=== PATIENT | female | born 1945 | race American Indian/Alaskan Native ===

== ENCOUNTER 2016-12-17 11:37 | Emergency (ER) | payer MEDICAID, SELFPAY ==
--- NOTE | 2016-12-17 11:43 | EDM.PDOC ---
ED HPI GENERAL MEDICAL PROBLEM - General Chief Complaint: Abdominal Pain Stated Complaint: said pain [id number] Time Seen by Provider: 12/17/16 12:17 Source of Information: Reports: Patient, RN, RN Notes Reviewed History Limitations: Reports: No Limitations - History of Present Illness INITIAL COMMENTS - FREE TEXT/NARRATIVE: Patient has had approximately one and half weeks of pain that radiates from the mid back/left flank area around the lower left abdomen to the groin and periumbilical area. She has some sensation of numbness and tingling when she touches the skin of the left lower abdomen. She has nausea. No vomiting. Normal bowel function. Denies fevers and chills. Denies any urinary symptoms. Was seen at [facility] where she had blood tests, urine tests which she states where inconclusive, however, her doctor on antibiotics empirically for possible diverticulitis. Pain has increased. She has had no other symptoms develop. Severity: Moderate Improves with: Reports: None Worsens with: Reports: None Associated Symptoms: Reports: No Other Symptoms Abdomen Pain Score (Numeric/FACES): 8 - Related Data Allergies Allergy/AdvReac Type Severity Reaction Status Date / Time bacitracin Allergy Swelling Verified 12/17/16 11:54 [From Neosporin ([id number])] bacitracin zinc Allergy Swelling Verified 12/17/16 11:54 [From Neosporin ([id number])] neomycin sulfate Allergy Swelling Verified 12/17/16 11:54 [From Neosporin ([id number])] Opioids - Morphine Analogues Allergy Rash Verified 12/17/16 11:54 polymyxin B Allergy Swelling Verified 12/17/16 11:54 [From Neosporin ([id number])] kiwi Allergy Swollen Uncoded 12/17/16 11:54 Eyes Home Meds: Home Meds Diltiazem [Tiazac] 120 mg PO DAILY 09/27/15 [History] Insulin Detemir [Levemir Flextouch] 70 units SQ DAILY 09/27/15 [History] Nitroglycerin [Nitro-Time] 6.5 mg PO BID 09/27/15 [History] Simvastatin [Zocor] 20 mg PO BEDTIME 09/27/15 [History] glyBURIDE [Micronase] 10 mg PO WITHBREAKFAST 03/13/16 [History] Lisinopril [Lisinopril] 40 mg PO DAILY 11/26/15 [History] Amoxicillin/Clavulanate K [Augmentin 875 MG/125 MG] 1 tab PO BID 12/17/16 [ History] Diltiazem HCl [Diltiazem 24Hr ER] 120 mg PO DAILY 12/17/16 [History] Fluconazole [Diflucan] 150 mg PO ASDIRECTED PRN 12/17/16 [History] Naproxen [IMW: Naproxen] 500 mg PO ASDIRECTED PRN 12/17/16 [History] Nitroglycerin [IJP: Nitroglycerin] 0.4 mg SL ASDIRECTED 12/17/16 [History] Omeprazole [Omeprazole] 20 mg PO ASDIRECTED PRN 12/17/16 [History] metFORMIN [Glucophage] 1,000 mg PO BID 12/17/16 [History] Past Medical History HEENT History: Reports: Impaired Vision Cardiovascular History: Reports: High Cholesterol, Hypertension Respiratory History: Reports: Asthma, Bronchitis, Recurrent Genitourinary History: 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 (See Below) Other Genitourinary History: diabetis 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: , Other (See Below) Other OB/BYN History: hysterectomy Endocrine/Metabolic History: Reports: Diabetes, Type II Oncologic (Cancer) History: Reports: Breast - Past Surgical History Cardiovascular Surgical History: 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 (See Below) Female Surgical History: Reports: Breast Biopsy, Hysterectomy, Mastectomy, Other (See Below) Oncologic Surgical History: Reports: Biopsy of Breast, Other (See Below) Social & Family History - Family History Family Medical History: Noncontributory - Tobacco Use Smoking Status *Q: Never Smoker Second Hand Smoke Exposure: No - Recreational Drug Use Recreational Drug Use: No ED ROS GENERAL - Review of Systems Review Of Systems: ROS reveals no pertinent complaints other than HPI. ED EXAM, GI/ABD - Physical Exam Exam: See Below Exam Limited By: No Limitations General Appearance: Alert, Obese Eyes: Bilateral: Normal Appearance Nose: Normal Inspection Throat/Mouth: Normal Inspection Head: Atraumatic, Normocephalic Neck: Normal Inspection, Supple, Non-Tender, Full Range of Motion Respiratory/Chest: No Respiratory Distress, Lungs Clear, Normal Breath Sounds, No Accessory Muscle Use, Chest Non-Tender Cardiovascular: Normal Peripheral Pulses, Regular Rate, Rhythm, No Edema, No Gallop, No JVD, No Murmur, No Rub GI/Abdominal: Normal Bowel Sounds, Soft, No Distention, Other (morbidly obese abdomen with left lower quadrant tenderness extending around to the left flank. ). No: Guarding, Rebound, Rigidity Back Exam: CVA Tenderness (L), Decreased Range of Motion, Paraspinal Tenderness (at left thoracolumbar region. ). No: CVA Tenderness (R), Muscle Spasm, Vertebral Tenderness Extremities: Normal Inspection, Normal Range of Motion, Non-Tender, Normal Capillary Refill, No Pedal Edema Neurological: Alert, Oriented, CN II-XII Intact, Normal Cognition, Normal Gait, Normal Reflexes, No Motor/Sensory Deficits Psychiatric: Normal Affect, Normal Mood Skin Exam: Warm, Dry, Intact, Normal Color, No Rash Lymphatic: No Adenopathy Course - Vital Signs Last Recorded V/S: Last Vital Signs Temp 36.2 C 12/17/16 11:56 Pulse 60 12/17/16 13:10 Resp 18 12/17/16 11:56 BP 169/67 H 12/17/16 11:56 Pulse Ox 98 12/17/16 13:10 - Orders/Labs/Meds Orders: Active Orders 24 hr Category Date Time Status Peripheral IV Care [RC] . DIRECTED Care 12/17/16 12:27 Active RT Aerosol Therapy [RC] ASDIRECTED Care 12/17/16 13:10 Active Sodium Chloride 0.9% [Saline Flush] Med 12/17/16 12:25 Active 10 ml FLUSH ASDIRECTED PRN Peripheral IV Insertion Adult [OM.PC] Stat Oth 12/17/16 12:26 Ordered Medication Orders Sodium Chloride (Saline Flush) 10 ml FLUSH ASDIRECTED PRN PRN Reason: Keep Vein Open Last Admin: 12/17/16 13:53 Dose: 10 ml Admin: 12/17/16 12:45 Dose: 10 ml Labs: Laboratory Tests 12/17/16 12/17/16 12/17/16 Range/Units 12:35 12:35 13:40 WBC 13.1 H (5.0-10.0) 10^3/uL RBC 4.34 (4.2-5.4) 10^6/uL Hgb 12.7 (12.0-16.0) g/dL Hct 39.4 (37.0-47.0) % MCV 90.8 (80-100) fL MCH 29.3 (27.0-34.0) pg MCHC 32.2 L (33.0-35.0) g/dL Plt Count 216 (150-450) 10^3/uL Neut % (Auto) 81.0 H (42.2-75.2) % Lymph % (Auto) 11.1 L (20.5-50.1) % [place] % (Auto) 5.4 (2-8) % Eos % (Auto) 2.3 (1.0-3.0) % Baso % (Auto) 0.2 (0.0-1.0) % Sodium 136 (135-145) mmol/L Potassium 6.4 H (3.6-5.0) mmol/L Chloride 108 (101-111) mmol/L Carbon Dioxide 22.0 (21.0-31.0) mmol/L Anion Gap 12.4 BUN 22 H (7-18) mg/dL Creatinine 1.3 (0.6-1.3) mg/dL Est Cr Clr Drug Dosing 29.34 mL/min Estimated GFR (MDRD) 41 BUN/Creatinine Ratio 16.92 Glucose 223 H (74-105) mg/dL POC Glucose 176 H (70-105) mg/dl Calcium 8.2 L (8.4-10.2) mg/dl Total Bilirubin 0.5 (0.2-1.0) mg/dL AST 11 (10-42) IU/L ALT 11 (10-60) IU/L Alkaline Phosphatase 84 (42-121) IU/L Total Protein 6.1 L (6.7-8.2) g/dl Albumin 2.9 L (3.2-5.5) g/dl Globulin 3.2 Albumin/Globulin Ratio 0.91 Amylase 8 L (28-100) U/L Lipase 11 L (22-51) U/L Urine Color (YELLOW) Urine Appearance (CLEAR) Urine pH (5.0-9.0) Ur Specific [place] (1.005-1.030) Urine Protein (NEGATIVE) Urine Glucose (UA) (NEGATIVE) Urine Ketones (NEGATIVE) Urine Occult Blood (NEGATIVE) Urine Nitrite (NEGATIVE) Urine Bilirubin (NEGATIVE) Urine Urobilinogen (0.2-1.0) mg/dL Ur Leukocyte Esterase (NEGATIVE) Urine RBC /HPF Urine WBC (0-5/HPF) /HPF Ur Epithelial Cells /HPF Urine Bacteria (0-FEW/HPF) /HPF Urine Yeast (0/HPF) /HPF 12/17/16 12/17/16 12/17/16 Range/Units 14:13 14:30 15:06 WBC (5.0-10.0) 10^3/uL RBC (4.2-5.4) 10^6/uL Hgb (12.0-16.0) g/dL Hct (37.0-47.0) % MCV (80-100) fL MCH (27.0-34.0) pg MCHC (33.0-35.0) g/dL Plt Count (150-450) 10^3/uL Neut % (Auto) (42.2-75.2) % Lymph % (Auto) (20.5-50.1) % [place] % (Auto) (2-8) % Eos % (Auto) (1.0-3.0) % Baso % (Auto) (0.0-1.0) % Sodium 140 (135-145) mmol/L Potassium 4.9 (3.6-5.0) mmol/L Chloride 112 H (101-111) mmol/L Carbon Dioxide 20.0 L (21.0-31.0) mmol/L Anion Gap 12.9 BUN 20 H (7-18) mg/dL Creatinine 1.4 H (0.6-1.3) mg/dL Est Cr Clr Drug Dosing 27.24 mL/min Estimated GFR (MDRD) 37 BUN/Creatinine Ratio Glucose 249 H (74-105) mg/dL POC Glucose 250 H (70-105) mg/dl Calcium 9.3 (8.4-10.2) mg/dl Total Bilirubin (0.2-1.0) mg/dL AST (10-42) IU/L ALT (10-60) IU/L Alkaline Phosphatase (42-121) IU/L Total Protein (6.7-8.2) g/dl Albumin (3.2-5.5) g/dl Globulin Albumin/Globulin Ratio Amylase (28-100) U/L Lipase (22-51) U/L Urine Color Yellow (YELLOW) Urine Appearance Cloudy (CLEAR) Urine pH 5.5 (5.0-9.0) Ur Specific [place] 1.015 (1.005-1.030) Urine Protein >=300 H (NEGATIVE) Urine Glucose (UA) 100 H (NEGATIVE) Urine Ketones Negative (NEGATIVE) Urine Occult Blood Small H (NEGATIVE) Urine Nitrite Negative (NEGATIVE) Urine Bilirubin Negative (NEGATIVE) Urine Urobilinogen 0.2 (0.2-1.0) mg/dL Ur Leukocyte Esterase Moderate H (NEGATIVE) Urine RBC 5-10 H /HPF Urine WBC >100 H (0-5/HPF) /HPF Ur Epithelial Cells Rare /HPF Urine Bacteria Few (0-FEW/HPF) /HPF Urine Yeast Many H (0/HPF) /HPF Meds: Medications Generic Name Dose Route Start Last Admin Trade Name Freq PRN Reason Stop Dose Admin Sodium Chloride 10 ml 12/17/16 12:25 12/17/16 13:53 Saline Flush FLUSH 10 ml ASDIRECTED PRN Administration Keep Vein Open Discontinued Medications Generic Name Dose Route Start Last Admin Trade Name Freq PRN Reason Stop Dose Admin Albuterol 7.5 mg 12/17/16 13:09 12/17/16 13:38 Proventil Neb Soln NEB 12/17/16 13:10 7.5 mg ONETIME ONE Administration Calcium Chloride 1 gm 12/17/16 13:10 12/17/16 13:48 Calcium Chloride 10% IVPUSH 12/17/16 13:11 1 gm ONETIME ONE Administration Dextrose/Water 50 ml 12/17/16 13:11 12/17/16 13:42 Dextrose 50% In Water IVPUSH 12/17/16 13:12 50 ml ONETIME ONE Administration Fluconazole 200 mg 12/17/16 15:45 Diflucan PO 12/17/16 15:46 ONETIME ONE Sodium Chloride 1,000 mls @ 999 mls/hr 12/17/16 12:29 12/17/16 12:46 Normal Saline IV 12/17/16 13:29 999 mls/hr .BOLUS ONE Administration Insulin Human Regular 10 unit 12/17/16 13:11 12/17/16 13:36 Novolin R IVPUSH 12/17/16 13:12 10 units ONETIME ONE Administration Protocol Ondansetron HCl 4 mg 12/17/16 12:29 12/17/16 12:47 Zofran IV 12/17/16 12:30 4 mg ONETIME ONE Administration Sodium Polystyrene Sulfonate 45 gm 12/17/16 13:09 12/17/16 13:46 Kayexalate PO 12/17/16 13:10 30 gm NOW ONE Administration Sodium Polystyrene Sulfonate Confirm 12/17/16 13:44 12/17/16 13:49 Kayexalate Administered 12/17/16 13:45 Not Given Dose 15 gm .ROUTE .STK-MED ONE Sodium Polystyrene Sulfonate Confirm 12/17/16 13:46 12/17/16 13:52 Kayexalate Administered 12/17/16 13:47 Not Given Dose 15 gm .ROUTE .STK-MED ONE - Radiology Interpretation Free Text/Narrative:: CT abdomen and pelvis: per rad report reveals abnormal left renal findings suggesting recently passed calculus, calculus too small to characterize or possible pyelonephritis. Possible mild periumbilical cellulitis in the subcutaneous tissues. Intra-extrahepatic biliary ductal ectasia, uncertain chronicity or etiology. Pelvic floor laxity. Departure - Departure Time of Disposition: 16:22 Disposition: Home, Self-Care 01 Condition: fair Clinical Impression: Hyperkalemia, Kidney stone, Yeast cystitis Degenerative disc disease Qualifiers: Spinal region: thoracolumbar Qualified Code(s): M51.35 - Other intervertebral disc degeneration, thoracolumbar region Urinary tract infection Qualifiers: Urinary tract infection type: acute cystitis Hematuria presence: without hematuria Qualified Code(s): N30.00 - Acute cystitis without hematuria - Discharge Information Instructions: Hyperkalemia, [id number], Potassium Content of Foods, Kidney Stones, [id number], Vaginal Yeast Infection, Adult Forms: ED Department Discharge Additional Instructions: RX: Diflucan 100mg. RX: Zofran 4mg. Follow up in clinic in 2 to 3 days for recheck of potassium level and her abdominal symptoms. Return to ER if worse at any time. - My Orders Last 24 Hours: My Active Orders 12/17/16 12:25 Sodium Chloride 0.9% [Saline Flush] 10 ml FLUSH ASDIRECTED PRN 12/17/16 12:26 Peripheral IV Insertion Adult [OM.PC] Stat 12/17/16 12:27 Peripheral IV Care [RC] . DIRECTED 12/17/16 13:10 RT Aerosol Therapy [RC] ASDIRECTED - Assessment/Plan Last 24 Hours: My Active Orders 12/17/16 12:25 Sodium Chloride 0.9% [Saline Flush] 10 ml FLUSH ASDIRECTED PRN 12/17/16 12:26 Peripheral IV Insertion Adult [OM.PC] Stat 12/17/16 12:27 Peripheral IV Care [RC] . DIRECTED 12/17/16 13:10 RT Aerosol Therapy [RC] ASDIRECTED
[2016-12-17 11:57] VITALS: BP 169/67
[2016-12-17] MEDS ORDERED: Sodium Chloride 0.9% 1,000 ML IV ONE (12:29)
[2016-12-17] MEDS ORDERED: Ondansetron 4 MG/2 ML SDV IV ONE (12:29)
[2016-12-17] MEDS: Sodium Chloride 0.9% 10 ML Syringe FLUSH PRN ×2 (12:45→13:53)
[2016-12-17] MEDS ORDERED: Albuterol 0.083% 2.5 MG/3 ML Neb Soln NEB ONE (13:09)
[2016-12-17] MEDS ORDERED: Calcium Chloride 10% 1 GM/10 ML Syringe IVPUSH ONE (13:10)
[2016-12-17] MEDS ORDERED: Insulin Regular, Human 100 Units/ML 10 ML Vial IVPUSH ONE (13:11)
[2016-12-17] MEDS ORDERED: 50% Dextrose in Water 50 ML Syringe IVPUSH ONE (13:11)
[2016-12-17] MEDS: Sodium Polystyrene Sulfonate 15 GM/60 ML Susp 60 ML Bot PO ONE ×2 (13:40→13:46)
[2016-12-17] MEDS ORDERED: Sodium Polystyrene Sulfonate 15 GM/60 ML Susp 60 ML Bot ONE ×2 (13:44→13:46)
[2016-12-17] MEDS ORDERED: Fluconazole 100 MG Tab PO ONE (15:45)
== END 2016-12-17 16:52 | disposition home or self-care (01) ==
LOC: DL.ED 11:37
DX: N20.0 Calculus of kidney (principal); B37.41 Candidal cystitis and urethritis; E87.5 Hyperkalemia; E78.00 Pure hypercholesterolemia, unspecified; I10 Essential (primary) hypertension; J45.909 Unspecified asthma, uncomplicated; E11.9 Type 2 diabetes mellitus without complications; H54.7 Unspecified visual loss; Z88.8 Allergy status to other drugs, medicaments and biological substances; Z79.4 Long term (current) use of insulin; Z79.899 Other long term (current) drug therapy; Z88.5 Allergy status to narcotic agent; Z90.710 Acquired absence of both cervix and uterus; M51.35 Other intervertebral disc degeneration, thoracolumbar region; Z79.84 Long term (current) use of oral hypoglycemic drugs; Z79.2 Long term (current) use of antibiotics
CPT/HCPCS: 36415; 74176; 80048; 80053; 81001; 82150; 82962; 83690; 85025; 94640; 96361; 96374; 96375; 99285; A9270; J1815; J2405; J7030; J7050; J7620; 99284; J7060

== ENCOUNTER 2017-01-08 19:25 | Emergency (ER) | payer SELFPAY | END 2017-01-08 19:51 | disposition left against medical advice (07) | LOC: DL.ED 19:25 | DX: Z53.21 Procedure and treatment not carried out due to patient leaving prior to being seen by health care provider (principal) ==

== ENCOUNTER 2017-09-05 06:19 | Day surgery (SDC) | payer MEDICAID, OTHER ==
[~2017-09-05 06:19] MED LIST: Dextrose 5%-0.45% NaCl 1,000 ML IV SCH; Midazolam 1 MG/ML 2 ML SDV ONE; Sodium Chloride 0.9% 10 ML Syringe FLUSH PRN; fentaNYL 100 MCG/2 ML SDV ONE
[2017-09-05] MEDS ORDERED: fentaNYL 100 MCG/2 ML SDV IV ONE ×3 (06:20→07:00)
[2017-09-05] MEDS ORDERED: Midazolam 1 MG/ML 2 ML SDV IV ONE ×5 (06:20→07:12)
[2017-09-05] MEDS ORDERED: Dextrose 5%-0.45% NaCl 1,000 ML IV SCH (07:00)
[2017-09-05 09:13] VITALS: BP 173/65
--- NOTE | 2017-09-05 11:15 | OR ---
DATE: 09/05/2017 PROCEDURE: Total colonoscopy. INSTRUMENT USED: PCF-H180AL Olympus video colonoscope. PREMEDICATIONS: Fentanyl 100 mcg intravenous, Versed 3 mg intravenous. Nasal O2 cannula. The procedure was done under pulse oximetry, BP recording, and cardiac tech. INDICATION: Screening colonoscopic examination is done for detection of any polypoid lesions and removal, endoscopic hemostasis therapy if needed. DESCRIPTION OF PROCEDURE: Initial rectal exam showed external hemorrhoidal tags and the anal sphincter was found to be lax. Rigid anoscopy showed small internal hemorrhoids without bleeding from them. The colonoscope was passed with ease up to the ileocecal area, photographs were taken of the normal- appearing cecum, identified by double-bulged ileocecal folds. No bleeding was noted from any of the visualized areas at the commencement of the examination. There was large amount of liquid fecal material that had to be aspirated clear. No stricture. No vascular ectasia. No large isolated ulcerations seen. No evidence of diffuse inflammatory bowel disease in the form of friability, contact bleeding, or ulcerations. No polyp or tumor mass identified. Probing the proximal sides of folds and flexures, using adequate distention and clearing up the stool material, withdrawal of the scope was made, cecum to rectum time over 6 minutes. No bleeding was noted from any of the visualized areas at the completion of examination. IMPRESSION: External and internal hemorrhoids. The patient tolerated the procedure well. [facility] /[id number]
--- NOTE | 2017-09-05 14:39 | LETTER ---
09/05/2017 Jumana Montes MD [facility] [address] [place] [address] RE: ELDA LOVE : [address] Montes: Ms. Elda Love had colonoscopic examination done this morning and she tolerated the procedure well. I herewith send a copy of the endoscopy note and photographs for your review. Thank you. Sincerely, [facility] /[id number]
== END 2017-09-05 09:05 | disposition home or self-care (01) ==
LOC: DL.ENDO 06:19
PROVIDERS: ATTEND Internal Medicine Gastroenterology
DX: Z12.11 Encounter for screening for malignant neoplasm of colon (principal); K64.8 Other hemorrhoids; K64.4 Residual hemorrhoidal skin tags; E66.9 Obesity, unspecified; E11.9 Type 2 diabetes mellitus without complications; I10 Essential (primary) hypertension; Z88.1 Allergy status to other antibiotic agents; Z88.8 Allergy status to other drugs, medicaments and biological substances; Z91.018 Allergy to other foods; Z90.49 Acquired absence of other specified parts of digestive tract; Z90.710 Acquired absence of both cervix and uterus
CPT/HCPCS: 45378; J2250; J3010; J7042

== ENCOUNTER 2017-11-14 08:07 | Day surgery (SDC) | payer MEDICAID, MEDICARE, OTHER ==
[~2017-11-14 08:07] MED LIST changes: +Cataract Ophth Solution EYERT ONE; -Dextrose 5%-0.45% NaCl 1,000 ML IV SCH; +Lidocaine 4% 5 ML Amp EYERT ONE; -Midazolam 1 MG/ML 2 ML SDV ONE; +Moxifloxacin 0.5% Ophth Soln 3 ML Bottle EYERT ONE; -fentaNYL 100 MCG/2 ML SDV ONE
[2017-11-14] MEDS ORDERED: Sodium Chloride 0.9% 10 ML Syringe IV ONE (08:08)
[2017-11-14] MEDS ORDERED: Midazolam 1 MG/ML 2 ML SDV IV ONE (08:08)
[2017-11-14] MEDS ORDERED: EPINEPHrine 1 MG/ML SDV ONE (10:15)
[2017-11-14] MEDS ORDERED: Lidocaine 1% 30 ML SDV ONE (10:16)
[2017-11-14] MEDS ORDERED: Balanced Salt Solution Ophth Irrig 500 ML Bottle IOCULAR ONE (10:16)
[2017-11-14] MEDS ORDERED: Lidocaine 4% 5 ML Amp EYERT ONE (10:16)
[2017-11-14] MEDS ORDERED: Povidone-Iodine 5% Sterile Ophth Soln 30 ML Bottle EYERT ONE (10:17)
[2017-11-14] MEDS ORDERED: Moxifloxacin 0.5% Ophth Soln 3 ML Bottle EYERT ONE (10:17)
[2017-11-14] MEDS ORDERED: prednisoLONE Acetate 1% Ophth Susp 5 ML Bottle EYERT ONE (10:17)
--- NOTE | 2017-11-14 10:44 | PCM.OPNOTE ---
- General Post-Op/Procedure Note Date of Surgery/Procedure: 11/14/17 Operative Procedure(s): Cataract extraction with intraocular lens implant, right eye Findings: As above Pre Op Diagnosis: Combined forms of age-related cataract, right eye Post-Op Diagnosis: Same Anesthesia Technique: MAC Primary Surgeon: Trevor Armstrong Anesthesia Provider: Alfred Pathology: None EBL in mLs: 0 Complications: None Condition: Good Free Text/Narrative:: PROCEDURE: After the risks and benefits of the procedure were explained informed consent was obtained from the patient and the patient was taken to the operating room. The patient was given topical Lidocaine 4% drops in the right eye. The patient was then prepped and draped in the sterile [facility] fashion. A wire lid speculum was placed in the right eye. A clear cornea temporal approach was used. A [address] blade was used to make a paracentesis site around 11:00. Preservative-free Lidocaine 1% was injected intracamerally. Viscoelastic was placed in the anterior chamber. A 2.5 mm keratome blade was used to make a clear corneal incision around 9:00. A cystotome needle and Utrata forceps were used to perform continuous curvilinear capsulorhexis. Balanced Salt Solution was used to perform hydrodissection and hydrodelineation. The lens nucleus was removed using the divide and conquer phacoemulsification technique. Cumulative dissipated energy was 7.03. Remaining cortex was removed using irrigation- aspiration. Viscoelastic was placed in the capsular bag. PCBOO 21.0 diopter lens was then placed in the capsular bag. Remaining viscoelastic was removed using irrigation-aspiration. The lens was well centered in the capsular bag. The paracentesis and corneal incision were found to be water-tight. The patient was given topical Prednisolone and Vigamox drops. The speculum was removed and a shield was placed over the right eye. The patient was taken to recovery in stable condition. I certify that I was present for and performed the entire operative procedure. Trevor Armstrong M.D.
[2017-11-14 13:15] VITALS: BP 184/63
== END 2017-11-14 11:36 | disposition home or self-care (01) ==
LOC: DL.SDS 08:07
PROVIDERS: ATTEND Ophthalmology
DX: H25.811 Combined forms of age-related cataract, right eye (principal); E11.36 Type 2 diabetes mellitus with diabetic cataract; E11.42 Type 2 diabetes mellitus with diabetic polyneuropathy; E11.22 Type 2 diabetes mellitus with diabetic chronic kidney disease; I12.9 Hypertensive chronic kidney disease with stage 1 through stage 4 chronic kidney disease, or unspecified chronic kidney disease; N18.3 Chronic kidney disease, stage 3 (moderate); E78.5 Hyperlipidemia, unspecified; G89.29 Other chronic pain; M54.5 Low back pain; Z79.4 Long term (current) use of insulin; Z79.899 Other long term (current) drug therapy; Z88.1 Allergy status to other antibiotic agents; Z88.8 Allergy status to other drugs, medicaments and biological substances; Z91.018 Allergy to other foods
CPT/HCPCS: 66984; 82962; A9270; J0171; J2250; J7050; V2632; 00142

== ENCOUNTER 2017-12-19 08:41 | Day surgery (SDC) | payer MEDICAID, MEDICARE ==
[2017-12-19] MEDS ORDERED: Midazolam 1 MG/ML 2 ML SDV IV ONE (08:42)
[2017-12-19] MEDS ORDERED: Sodium Chloride 0.9% 10 ML Syringe IV ONE (08:42)
[2017-12-19] MEDS ORDERED: Lidocaine 4% 5 ML Amp EYELF ONE ×2 (09:00→10:53)
[2017-12-19] MEDS ORDERED: Sodium Chloride 0.9% 10 ML Syringe FLUSH PRN (09:00)
[2017-12-19] MEDS ORDERED: Moxifloxacin 0.5% Ophth Soln 3 ML Bottle EYELF ONE ×2 (09:00→11:30)
[2017-12-19] MEDS ORDERED: Cataract Ophth Solution EYELF ONE (09:19)
[2017-12-19] MEDS ORDERED: Cyclopentolate 2% Ophth Soln 5 ML Bottle EYELF PRN (10:32)
[2017-12-19] MEDS ORDERED: Povidone-Iodine 5% Sterile Ophth Soln 30 ML Bottle EYELF ONE (10:53)
[2017-12-19] MEDS ORDERED: Lidocaine 1% 30 ML SDV INJECT ONE (10:56)
[2017-12-19] MEDS ORDERED: EPINEPHrine 1 MG/ML SDV ONE (10:56)
[2017-12-19] MEDS ORDERED: Balanced Salt Solution Plus Ophth Irrig 500 ML Bottle IOCULAR ONE (10:56)
[2017-12-19] MEDS ORDERED: prednisoLONE Acetate 1% Ophth Susp 5 ML Bottle EYELF ONE (11:30)
--- NOTE | 2017-12-19 11:38 | PCM.OPNOTE ---
- General Post-Op/Procedure Note Date of Surgery/Procedure: 12/19/17 Operative Procedure(s): Cataract extraction with intraocular lens implant left eye Findings: As above Pre Op Diagnosis: Combined forms of age-related cataract, left eye Post-Op Diagnosis: Same Anesthesia Technique: MAC Primary Surgeon: Trevor Armstrong Pathology: None EBL in mLs: 0 Complications: None Condition: Good Free Text/Narrative:: PROCEDURE: After the risks and benefits of the procedure were explained informed consent was obtained from the patient and the patient was taken to the operating room. The patient was given topical Lidocaine 4% drops in the left eye. The patient was then prepped and draped in the sterile [facility] fashion. A wire lid speculum was placed in the left eye. A clear cornea temporal approach was used. A [address] blade was used to make a paracentesis site around 5:00. Preservative-free Lidocaine 1% was injected intracamerally. Viscoelastic was placed in the anterior chamber. A 2.65 mm keratome blade was used to make a clear corneal incision around 3:00. A cystotome needle and Utrata forceps were used to perform continuous curvilinear capsulorhexis. Balanced Salt Solution was used to perform hydrodissection and hydrodelineation. The lens nucleus was removed using the divide and conquer phacoemulsification technique. Cumulative dissipated energy was 4.09. Remaining cortex was removed using irrigation- aspiration. Viscoelastic was placed in the capsular bag. A small posterior capsular tear was noted at this point without vitreous prolapse. PCBOO 21.0 diopter lens was still able to be placed in the capsular bag. Remaining viscoelastic was removed using irrigation-aspiration. The lens was well centered in the capsular bag. The paracentesis and corneal incision were found to be water-tight. The patient was given topical Prednisolone and Vigamox drops. The speculum was removed and a shield was placed over the left eye. The patient was taken to recovery in stable condition. I certify that I was present for and performed the entire operative procedure. Trevor Armstrong M.D.
[2017-12-19] MEDS ORDERED: Acetaminophen 325 MG Tab PO ONE (11:46)
[2017-12-19 12:24] VITALS: BP 197/71
== END 2017-12-19 12:30 | disposition home or self-care (01) ==
LOC: DL.SDS 08:41
PROVIDERS: ATTEND Ophthalmology
DX: E11.36 Type 2 diabetes mellitus with diabetic cataract (principal); H25.813 Combined forms of age-related cataract, bilateral; I12.9 Hypertensive chronic kidney disease with stage 1 through stage 4 chronic kidney disease, or unspecified chronic kidney disease; E11.22 Type 2 diabetes mellitus with diabetic chronic kidney disease; N18.3 Chronic kidney disease, stage 3 (moderate); E11.65 Type 2 diabetes mellitus with hyperglycemia; E11.42 Type 2 diabetes mellitus with diabetic polyneuropathy; E11.40 Type 2 diabetes mellitus with diabetic neuropathy, unspecified; J45.909 Unspecified asthma, uncomplicated; E78.5 Hyperlipidemia, unspecified; N39.0 Urinary tract infection, site not specified; H52.223 Regular astigmatism, bilateral; H52.03 Hypermetropia, bilateral; H52.4 Presbyopia; Z79.4 Long term (current) use of insulin; Z79.82 Long term (current) use of aspirin; Z79.899 Other long term (current) drug therapy; Z91.018 Allergy to other foods; Z88.6 Allergy status to analgesic agent; Z88.5 Allergy status to narcotic agent
CPT/HCPCS: 00142; 66984; A9270; J0171; J2250; J7050; V2632

== ENCOUNTER 2018-01-28 10:02 | Emergency (ER) | payer BC, MEDICAID ==
[2018-01-28] MEDS ORDERED: Aspirin 81 MG Tab.Chew PO ONE (10:29)
[2018-01-28 10:48] LABS: ANION GAP 15.2; CHLORIDE,CL 102 mmol/L (101-111); SODIUM,NA 132 mmol/L (135-145)
[2018-01-28] MEDS ORDERED: Furosemide 40 MG/4 ML VIAL IVPUSH ONE (11:17)
--- NOTE | 2018-01-28 12:04 | CR ---
Conclusions: 72-year-old female chest pain. Interpretation: Chronic mild cardiomegaly accentuated by less than optimal inspiratory effort obese f emale. No current cephalization of vascular flow, signs of pulmonary venous congestion, alveolar edema or de pendent new pleural fluid accumulation i.e. definite radiographic improvement since 13 January 2018 exam . Surgical clips left axilla. External nuclear monitoring technician leads and oxygen cannula. No new lung mass, hilar lymphadenopathy or focal lobar pneumonia. No pneumothorax.
--- NOTE | 2018-01-28 12:27 | EDM.PDOC ---
Scribed by Denita Man 01/28/18 1126 for Nabor Don PA ED HPI GENERAL MEDICAL PROBLEM - General Chief Complaint: Chest Pain Stated Complaint: SOB, CHEST PAIN Time Seen by Provider: 01/28/18 10:17 Source of Information: Reports: Patient, RN, RN Notes Reviewed History Limitations: Reports: No Limitations - History of Present Illness INITIAL COMMENTS - FREE TEXT/NARRATIVE: Patient states the onset of chest pressure started last night while she was walking to the house. She took nitroglycerin x2 last night and the pain eased up. She took nitroglycerin again this with no change. She also took anaspirin 81mg this a.m. Two weeks ago she was in [place] with congestive heart failure. Her market editor is Dr. Barnes who she saw one week. She saw Dr. Estrdaa her superintendent greens last . Onset Date: 01/27/18 Duration: Getting Worse Location: Reports: Chest Quality: Reports: Pressure Severity: Moderate Improves with: Reports: None Worsens with: Reports: None Associated Symptoms: Reports: No Other Symptoms - Related Data Allergies Allergy/AdvReac Type Severity Reaction Status Date / Time lisinopril Allergy Other Verified 01/13/18 01:14 neomycin sulfate Allergy Swelling Verified 01/13/18 01:14 [From Neosporin ([id number])] Opioids - Morphine Analogues Allergy Rash Verified 01/13/18 01:14 polymyxin B Allergy Swelling Verified 01/13/18 01:14 [From Neosporin ([id number])] kiwi Allergy Swollen Uncoded 01/13/18 01:14 Eyes Home Meds: Home Meds Insulin Detemir [Levemir Flextouch] 60 units SQ BEDTIME 09/27/15 [History] Simvastatin [Zocor] 20 mg PO BEDTIME 09/27/15 [History] glyBURIDE [Micronase] 5 mg PO BID 09/27/15 [History] Nitroglycerin [IJP: Nitroglycerin] 0.4 mg SL ASDIRECTED 12/17/16 [History] Albuterol [Proventil Neb Soln] 1 vial INH Q6H PRN 08/28/17 [History] Aspirin [Halfprin] 81 mg PO DAILY 08/28/17 [History] Dextran 70/Hypromellose [Artificial Tears] 1 drop EYEBOTH BEDTIME PRN 08/28/17 [ History] Losartan [Cozaar] 1 tab PO DAILY 09/04/17 [History] Cranberry Extract [Cranberry] 500 mg PO DAILY 10/16/17 [History] Albuterol Sulfate [Proair Hfa] 2 puff INH ASDIRECTED PRN 01/28/18 [History] Carvedilol [Coreg] 1 tab PO BID 01/28/18 [History] Furosemide 1 tab PO DAILY 01/28/18 [History] Metoprolol Succinate [Toprol XL 100mg] 1 tab PO BID 01/28/18 [History] Nitroglycerin 1 cap PO BID 01/28/18 [History] amLODIPine Besylate [Amlodipine Besylate] 1 tab PO DAILY 01/28/18 [History] hydrALAZINE HCl [Hydralazine HCl] 1 tab PO BID 01/28/18 [History] metFORMIN HCl [Metformin HCl] 1 tab PO BID 01/28/18 [History] Past Medical History HEENT History: Reports: None Other HEENT History: wears glasses Cardiovascular History: Reports: Heart Failure, High Cholesterol, Hypertension Respiratory History: Reports: Asthma Gastrointestinal History: Reports: None Genitourinary History: Reports: Chronic Renal Insuffiency Other Genitourinary History: diabetis. 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 MECHANICAL SPREADER OPERATOR History: hysterectomy Musculoskeletal History: Reports: Arthritis Neurological History: Reports: None Psychiatric History: Reports: None Endocrine/Metabolic History: Reports: Diabetes, Type II Hematologic History: Reports: None Immunologic History: Reports: None Oncologic (Cancer) History: Reports: Breast Dermatologic History: Reports: None - Infectious Disease History Infectious Disease History: Reports: Mumps - Past Surgical History Head Surgeries/Procedures: Reports: None HEENT Surgical History: Reports: Cataract Surgery Cardiovascular Surgical History: 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 (See Below) Other Cardiovascular Surgeries/Procedures: angiogram Respiratory Surgical History: Reports: None GI Surgical History: Reports: Appendectomy, Cholecystectomy, Colonoscopy Female Surgical History: Reports: Cystoscopy, Hysterectomy Musculoskeletal Surgical History: Reports: None Oncologic Surgical History: Reports: Lumpectomy Social & Family History - Family History Family Medical History: Noncontributory - Caffeine Use Caffeine Use: Reports: Coffee Other Caffeine Use: 3 cups daily ED ROS GENERAL - Review of Systems Review Of Systems: ROS reveals no pertinent complaints other than HPI. ED EXAM, GENERAL - Physical Exam Exam: See Below Exam Limited By: No Limitations General Appearance: Alert, WD/WN, No Apparent Distress Eye Exam: Bilateral Eye: Normal Inspection Ears: Normal External Exam, Normal Canal, Hearing Grossly Normal, Normal TMs Nose: Normal Inspection, Normal Mucosa, No Blood Throat/Mouth: Normal Inspection, Normal Lips, Normal Teeth, Normal Gums, Normal Oropharynx, Normal Voice, No Airway Compromise Head: Atraumatic, Normocephalic Neck: Normal Inspection, Supple, Non-Tender, Full Range of Motion Respiratory/Chest: No Respiratory Distress, Lungs Clear, Normal Breath Sounds, No Accessory Muscle Use, Chest Non-Tender Cardiovascular: Bradycardia GI/Abdominal: Other (obese) (Female) Exam: Deferred Rectal (Female) Exam: Deferred Back Exam: Normal Inspection, Full Range of Motion, NT Extremities: Normal Inspection, Normal Range of Motion, Non-Tender, Normal Capillary Refill, No Pedal Edema Neurological: Alert, Oriented, CN II-XII Intact, Normal Cognition, Normal Gait, Normal Reflexes, No Motor/Sensory Deficits Psychiatric: Normal Affect, Normal Mood Skin Exam: Warm, Dry, Intact, Normal Color, No Rash Lymphatic: No Adenopathy Course - Vital Signs Last Recorded V/S: Last Vital Signs Temp 36.4 C 01/28/18 10:03 Pulse 47 L 01/28/18 10:03 Resp 20 01/28/18 10:03 BP 138/45 L 01/28/18 10:03 Pulse Ox 93 L 01/28/18 10:03 - Orders/Labs/Meds Orders: Active Orders 24 hr Category Date Time Status EKG Documentation Completion [RC] URGENT Care 01/28/18 10:13 Active Labs: Laboratory Tests 01/28/18 01/28/18 Range/Units 10:20 10:20 WBC 8.5 (5.0-10.0) 10^3/uL RBC 3.60 L (4.2-5.4) 10^6/uL Hgb 10.6 L D (12.0-16.0) g/dL Hct 33.0 L (37.0-47.0) % MCV 91.7 (80-100) fL MCH 29.4 (27.0-34.0) pg MCHC 32.1 L (33.0-35.0) g/dL Plt Count 204 (150-450) 10^3/uL Neut % (Auto) 75.2 (42.2-75.2) % Lymph % (Auto) 13.0 L (20.5-50.1) % [place] % (Auto) 7.3 (2-8) % Eos % (Auto) 4.0 H (1.0-3.0) % Baso % (Auto) 0.5 (0.0-1.0) % Sodium 132 L (135-145) mmol/L Potassium 5.2 H (3.6-5.0) mmol/L Chloride 102 (101-111) mmol/L Carbon Dioxide 20.0 L (21.0-31.0) mmol/L Anion Gap 15.2 BUN 68 H D (7-18) mg/dL Creatinine 2.1 H (0.6-1.3) mg/dL Est Cr Clr Drug Dosing 17.90 mL/min Estimated GFR (MDRD) 23 BUN/Creatinine Ratio 32.38 Glucose 116 H (74-105) mg/dL Calcium 8.4 (8.4-10.2) mg/dl Total Bilirubin 0.6 (0.2-1.0) mg/dL AST 25 (10-42) IU/L ALT 33 (10-60) IU/L Alkaline Phosphatase 83 (42-121) IU/L Troponin I < 0.02 (0.00-0.02) ng/ml B-Natriuretic Peptide 469 H (0-100) pg/ml Total Protein 6.4 L (6.7-8.2) g/dl Albumin 3.3 (3.2-5.5) g/dl Globulin 3.1 Albumin/Globulin Ratio 1.06 Meds: Medications Discontinued Medications Generic Name Dose Route Start Last Admin Trade Name Freq PRN Reason Stop Dose Admin Aspirin 324 mg 01/28/18 10:29 01/28/18 10:37 Aspirin PO 01/28/18 10:30 324 mg ONETIME ONE Administration Furosemide 60 mg 01/28/18 11:17 01/28/18 11:25 Lasix IVPUSH 01/28/18 11:18 60 mg NOW ONE Administration - Re-Assessments/Exams Free Text/Narrative Re-Assessment/Exam: 01/28/18 11:20 Discussed the patient With Dr. Estrada. Dr. Estrada saw the patient on of this past week. Dr. Estrada advised to give the patient a dose of IV Lasix ( 60 mg), stop the patient's Losartan, start the patient on Amlodipine (5 mg) daily, and follow-up with him via Telemed on Monday (01/31/18) labs scheduled at the [facility] in [place] at 0900 and an appointment with him via Telemed at 1100. Departure - Departure Time of Disposition: 12:27 Disposition: Home, Self-Care 01 Condition: Fair Clinical Impression: Nonspecific chest pain Renal failure Qualifiers: Renal failure chronicity: chronic Chronic kidney disease stage: unspecified stage Qualified Code(s): N18.9 - Chronic kidney disease, unspecified CHF (congestive heart failure) Qualifiers: Heart failure type: systolic Heart failure chronicity: chronic Qualified Code(s ): I50.22 - Chronic systolic (congestive) heart failure Instructions: Food Basics for Chronic Kidney Disease, Nonspecific Chest Pain, [id number], Chronic Kidney Disease, Adult, [id number] Forms: ED Department Discharge Care Plan Goals: The patient and daughter were advised of the examination results during the visit. The patient was given an IV dose of Lasix (60 mg) and an oral dose of Aspirin while in the ED. Discussed the examination, EKG, x-ray and lab results with Dr. Estrada. Dr. Estrada advised to stop the patient's Losartan and start the patient on Amlodipine (5 mg) daily. The patient is scheduled for a follow- up Telemed appointment with Dr. Estrada on Monday (01/31/18). The patient has lab scheduled for 0900 (01/31/18) and Telemed with Dr. Estrada at 1100 at the [facility] in [place]. The patient was given a script for Amlodipine (5 mg ) #30 to take 1 by mouth daily. If the patient has any additional symptoms or concerns, the patient should either visit her primary care facility or return to the emergency department. - My Orders Last 24 Hours: My Active Orders 01/28/18 10:13 EKG Documentation Completion [RC] URGENT - Assessment/Plan Last 24 Hours: My Active Orders 01/28/18 10:13 EKG Documentation Completion [RC] URGENT I have read and agree with the documentation that has been completed regarding this visit. By signing this record, I attest that the documentation was completed in my physical presence and is an accurate record of the encounter.
[2018-01-28 12:31] VITALS: BP 152/54
== END 2018-01-28 12:46 | disposition home or self-care (01) ==
LOC: DL.ED 10:02
DX: I13.0 Hypertensive heart and chronic kidney disease with heart failure and stage 1 through stage 4 chronic kidney disease, or unspecified chronic kidney disease (principal); N18.3 Chronic kidney disease, stage 3 (moderate); E11.22 Type 2 diabetes mellitus with diabetic chronic kidney disease; I50.22 Chronic systolic (congestive) heart failure; R07.89 Other chest pain; Z88.8 Allergy status to other drugs, medicaments and biological substances; Z91.018 Allergy to other foods; Z88.5 Allergy status to narcotic agent; Z79.82 Long term (current) use of aspirin; Z79.899 Other long term (current) drug therapy; Z79.84 Long term (current) use of oral hypoglycemic drugs
CPT/HCPCS: 36415; 71045; 80053; 83880; 84484; 85025; 93005; 96374; 99285; A9270; J1940

== ENCOUNTER 2018-02-05 09:03 | Emergency (ER) | payer MEDICAID, OTHER ==
[2018-02-05] MEDS ORDERED: 50% Dextrose in Water 50 ML Syringe ONE (09:21)
[2018-02-05] MEDS ORDERED: 50% Dextrose in Water 50 ML Syringe IVPUSH ONE ×3 (09:22→10:24)
--- NOTE | 2018-02-05 09:22 | EDM.PDOC ---
ED HPI GENERAL MEDICAL PROBLEM - General Stated Complaint: BY AMBULANCE Time Seen by Provider: 02/05/18 09:16 Source of Information: Reports: Patient, EMS History Limitations: Reports: No Limitations - History of Present Illness INITIAL COMMENTS - FREE TEXT/NARRATIVE: Patient comes emergency department today by ambulance from home with concerns of the syncopal episode. The patient relates that she gave herself her normal 60 units of insulin at bedtime that she has been doing for years when she went to bed last night. This morning she got up went to the bathroom felt weak and dizzy and collapsed in the bathroom next to the toilet. The ambulance was summoned and it was noted that her blood sugar was in the 40s. She was given an amp of D50. Her blood sugar improved to the 190s approximately by ambulance. Upon arrival the patient denies any head neck or back pain. She does complain of shortness of breath that has gotten worse over the past couple of weeks and does have a rather extensive history of congestive heart failure. She also has some tightness in her chest that is constant but she does not remember last night. No cough or congestion. No fever. She did not have breakfast yet this morning. No abdominal pain nausea vomiting she does complain of the chills. She has been taking the rest of her medications as prescribed. - Related Data Allergies Allergy/AdvReac Type Severity Reaction Status Date / Time lisinopril Allergy Other Verified 01/13/18 01:14 neomycin sulfate Allergy Swelling Verified 01/13/18 01:14 [From Neosporin ([id number])] Opioids - Morphine Analogues Allergy Rash Verified 01/13/18 01:14 polymyxin B Allergy Swelling Verified 01/13/18 01:14 [From Neosporin ([id number])] kiwi Allergy Swollen Uncoded 01/13/18 01:14 Eyes Home Meds: Home Meds Insulin Detemir [Levemir Flextouch] 60 units SQ BEDTIME 09/27/15 [History] Simvastatin [Zocor] 20 mg PO BEDTIME 09/27/15 [History] glyBURIDE [Micronase] 5 mg PO BID 09/27/15 [History] Nitroglycerin [IJP: Nitroglycerin] 0.4 mg SL ASDIRECTED 12/17/16 [History] Albuterol [Proventil Neb Soln] 1 vial INH Q6H PRN 08/28/17 [History] Aspirin [Halfprin] 81 mg PO DAILY 08/28/17 [History] Dextran 70/Hypromellose [Artificial Tears] 1 drop EYEBOTH BEDTIME PRN 08/28/17 [ History] Losartan [Cozaar] 1 tab PO BID 09/04/17 [History] Cranberry Extract [Cranberry] 500 mg PO DAILY 10/16/17 [History] Albuterol Sulfate [Proair Hfa] 2 puff INH ASDIRECTED PRN 01/28/18 [History] Carvedilol [Coreg] 1 tab PO BID 01/28/18 [History] Furosemide 1 tab PO DAILY 01/28/18 [History] amLODIPine Besylate [Amlodipine Besylate] 1 tab PO DAILY 01/28/18 [History] hydrALAZINE HCl [Hydralazine HCl] 150 tab PO BID 01/28/18 [History] Past Medical History HEENT History: Reports: None Other HEENT History: wears glasses Cardiovascular History: Reports: Heart Failure, High Cholesterol, Hypertension Respiratory History: Reports: Asthma Gastrointestinal History: Reports: None Genitourinary History: Reports: Chronic Renal Insuffiency Other Genitourinary History: diabetis. 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 CORE INSPECTOR History: hysterectomy Musculoskeletal History: Reports: Arthritis Neurological History: Reports: None Psychiatric History: Reports: None Endocrine/Metabolic History: Reports: Diabetes, Type II Hematologic History: Reports: None Immunologic History: Reports: None Oncologic (Cancer) History: Reports: Breast Dermatologic History: Reports: None - Infectious Disease History Infectious Disease History: Reports: Mumps - Past Surgical History Head Surgeries/Procedures: Reports: None HEENT Surgical History: Reports: Cataract Surgery Cardiovascular Surgical History: 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 (See Below) Other Cardiovascular Surgeries/Procedures: angiogram Respiratory Surgical History: Reports: None GI Surgical History: Reports: Appendectomy, Cholecystectomy, Colonoscopy Female Surgical History: Reports: Cystoscopy, Hysterectomy Musculoskeletal Surgical History: Reports: None Oncologic Surgical History: Reports: Lumpectomy Social & Family History - Family History Family Medical History: Noncontributory - Caffeine Use Caffeine Use: Reports: Coffee Other Caffeine Use: 3 cups daily ED ROS GENERAL - Review of Systems Review Of Systems: ROS reveals no pertinent complaints other than HPI. ED EXAM, GENERAL - Physical Exam Exam: See Below Exam Limited By: No Limitations General Appearance: Alert (Alert but somewhat drowsy. ) Eye Exam: Bilateral Eye: Normal Inspection Ears: Normal External Exam Nose: Normal Inspection, Normal Mucosa Throat/Mouth: Normal Inspection, Normal Oropharynx Head: Atraumatic, Normocephalic Neck: Normal Inspection, Non-Tender, Other (Palpation down the posterior midline spine does not elicit any midline tenderness. There is no bony deformities or step-offs.). No: Limited Range of Motion, Tender Lateral, Tender Midline Respiratory/Chest: No Respiratory Distress, Lungs Clear, No Accessory Muscle Use Cardiovascular: Normal Peripheral Pulses (poppy), Regular Rate, Rhythm Peripheral Pulses: 2+: Posterior Tibial (L), Posterior Tibial (R), Dorsalis Pedis (L), Dorsalis Pedis (R) GI/Abdominal: Normal Bowel Sounds, Soft (Female) Exam: Deferred Rectal (Female) Exam: Deferred Back Exam: Normal Inspection, Full Range of Motion Extremities: Normal Range of Motion, Non-Tender, Normal Capillary Refill, Pedal Edema (1-2+ up to mid tibia) Neurological: Alert (but drowsy), Oriented, No Motor/Sensory Deficits Psychiatric: Normal Affect Skin Exam: Intact, No Rash, Cool, Diaphoretic, Pallor EKG INTERPRETATION EKG Date: 02/05/18 Time: 09:32 Rhythm: NSR (poppy) Rate (Beats/Min): 43 Newton: LAD-Left Newton Deviation P-Wave: Present QRS: RBBB ST-T: Normal QT: Normal Comparison: No Change Course - Vital Signs Last Recorded V/S: Last Vital Signs Temp 35.4 C 02/05/18 09:34 Pulse 43 L 02/05/18 09:34 Resp 16 02/05/18 09:34 BP 150/55 H 02/05/18 09:34 Pulse Ox 95 02/05/18 09:34 - Orders/Labs/Meds Orders: Active Orders 24 hr Category Date Time Status EKG 12 Lead [EKG Documentation Completion] [] URGENT Care 02/05/18 09:23 Active POC Glucose [Blood Glucose Check, Bedside] [RC] ONETIME Care 02/05/18 09:23 Active POC Glucose [Blood Glucose Check, Bedside] [RC] ONETIME Care 02/05/18 09:25 Active POC Glucose [Blood Glucose Check, Bedside] [RC] ONETIME Care 02/05/18 12:21 Ordered UA W/MICROSCOPIC [URIN] Stat Lab 02/05/18 11:09 Ordered Labs: Laboratory Tests 02/05/18 02/05/18 02/05/18 Range/Units 09:19 09:38 09:38 WBC 8.9 (5.0-10.0) 10^3/uL RBC 3.63 L (4.2-5.4) 10^6/uL Hgb 10.6 L (12.0-16.0) g/dL Hct 34.1 L (37.0-47.0) % MCV 93.9 (80-100) fL MCH 29.2 (27.0-34.0) pg MCHC 31.1 L (33.0-35.0) g/dL Plt Count 177 (150-450) 10^3/uL Neut % (Auto) 80.0 H (42.2-75.2) % Lymph % (Auto) 8.1 L (20.5-50.1) % Davis % (Auto) 8.6 H (2-8) % Eos % (Auto) 2.7 (1.0-3.0) % Baso % (Auto) 0.6 (0.0-1.0) % Sodium 136 (135-145) mmol/L Potassium 4.5 (3.6-5.0) mmol/L Chloride 103 (101-111) mmol/L Carbon Dioxide 25.0 (21.0-31.0) mmol/L Anion Gap 12.5 BUN 61 H (7-18) mg/dL Creatinine 2.1 H (0.6-1.3) mg/dL Est Cr Clr Drug Dosing 17.90 mL/min Estimated GFR (MDRD) 23 BUN/Creatinine Ratio 29.04 Glucose 145 H (74-105) mg/dL POC Glucose 115 H (83-110) mg/dl Calcium 8.2 L (8.4-10.2) mg/dl Total Bilirubin 0.6 (0.2-1.0) mg/dL AST 77 H (10-42) IU/L ALT 53 (10-60) IU/L Alkaline Phosphatase 108 (42-121) IU/L Troponin I < 0.02 (0.00-0.02) ng/ml B-Natriuretic Peptide 730 H (0-100) pg/ml Total Protein 6.7 (6.7-8.2) g/dl Albumin 3.3 (3.2-5.5) g/dl Globulin 3.4 Albumin/Globulin Ratio 0.97 Urine Color (YELLOW) Urine Appearance (CLEAR) Urine pH (5.0-9.0) Ur Specific [place] (1.005-1.030) Urine Protein (NEGATIVE) Urine Glucose (UA) (NEGATIVE) Urine Ketones (NEGATIVE) Urine Occult Blood (NEGATIVE) Urine Nitrite (NEGATIVE) Urine Bilirubin (NEGATIVE) Urine Urobilinogen (0.2-1.0) mg/dL Ur Leukocyte Esterase (NEGATIVE) Urine RBC /HPF Urine WBC (0-5/HPF) /HPF Ur Epithelial Cells /HPF Amorphous Sediment (0/HPF) /HPF Urine Bacteria (0-FEW/HPF) /HPF Fine Granular Casts (0/LPF) /LPF Urine Mucus /LPF 02/05/18 02/05/18 02/05/18 Range/Units 10:22 10:52 11:09 WBC (5.0-10.0) 10^3/uL RBC (4.2-5.4) 10^6/uL Hgb (12.0-16.0) g/dL Hct (37.0-47.0) % MCV (80-100) fL MCH (27.0-34.0) pg MCHC (33.0-35.0) g/dL Plt Count (150-450) 10^3/uL Neut % (Auto) (42.2-75.2) % Lymph % (Auto) (20.5-50.1) % Davis % (Auto) (2-8) % Eos % (Auto) (1.0-3.0) % Baso % (Auto) (0.0-1.0) % Sodium (135-145) mmol/L Potassium (3.6-5.0) mmol/L Chloride (101-111) mmol/L Carbon Dioxide (21.0-31.0) mmol/L Anion Gap BUN (7-18) mg/dL Creatinine (0.6-1.3) mg/dL Est Cr Clr Drug Dosing mL/min Estimated GFR (MDRD) BUN/Creatinine Ratio Glucose (74-105) mg/dL POC Glucose 87 256 H (83-110) mg/dl Calcium (8.4-10.2) mg/dl Total Bilirubin (0.2-1.0) mg/dL AST (10-42) IU/L ALT (10-60) IU/L Alkaline Phosphatase (42-121) IU/L Troponin I (0.00-0.02) ng/ml B-Natriuretic Peptide (0-100) pg/ml Total Protein (6.7-8.2) g/dl Albumin (3.2-5.5) g/dl Globulin Albumin/Globulin Ratio Urine Color Yellow (YELLOW) Urine Appearance Slightly cloudy (CLEAR) Urine pH 5.5 (5.0-9.0) Ur Specific [place] 1.015 (1.005-1.030) Urine Protein >=300 H (NEGATIVE) Urine Glucose (UA) Negative (NEGATIVE) Urine Ketones Negative (NEGATIVE) Urine Occult Blood Negative (NEGATIVE) Urine Nitrite Negative (NEGATIVE) Urine Bilirubin Negative (NEGATIVE) Urine Urobilinogen 0.2 (0.2-1.0) mg/dL Ur Leukocyte Esterase Negative (NEGATIVE) Urine RBC 0-5 /HPF Urine WBC 0-5 (0-5/HPF) /HPF Ur Epithelial Cells Moderate H /HPF Amorphous Sediment Few (0/HPF) /HPF Urine Bacteria Rare (0-FEW/HPF) /HPF Fine Granular Casts Rare H (0/LPF) /LPF Urine Mucus Rare /LPF Meds: Medications Discontinued Medications Generic Name Dose Route Start Last Admin Trade Name Freq PRN Reason Stop Dose Admin Dextrose/Water 25 ml 02/05/18 09:22 Dextrose 50% In Water IVPUSH 02/05/18 09:23 ONETIME ONE Dextrose/Water 25 ml 02/05/18 09:23 02/05/18 09:28 Dextrose 50% In Water IVPUSH 02/05/18 09:24 25 ml ONETIME ONE Administration Dextrose/Water Confirm 02/05/18 09:21 02/05/18 10:28 Dextrose 50% In Water Administered 02/05/18 09:22 Not Given Dose 50 ml .ROUTE .STK-MED ONE Dextrose/Water 50 ml 02/05/18 10:24 02/05/18 10:32 Dextrose 50% In Water IVPUSH 02/05/18 10:25 50 ml ONETIME ONE Administration - Radiology Interpretation Free Text/Narrative:: Chest x-ray per radiology no atelectasis pneumonia or pneumothorax lung mass lymphadenopathy or pneumonia. Much improved chest x-ray since exam of January 28, 2018. - Re-Assessments/Exams Free Text/Narrative Re-Assessment/Exam: 02/05/18 09:29 1/2 amp D50 and breakfast tray supplied. 02/05/18 11:46 The patient did not have much of an appetite and she only a small amount of breakfast tray that was supplied. She continued to have lowering blood sugars. She eventually received another amp of D50 as well as an Ensure. She was monitored over the next couple hours to ensure that her blood sugar was well- maintained. She is noted to be quite bradycardic reviewing her chart it does not appear that this is relatively new for her but I have concerns for her stability at home with a heart rate of 43. Is very difficult to identify what medication she is on is she is unaware of what they are her pharmacy and her primary care provider also have different listings of medications. It does not appear that she is on the metoprolol anymore and question if she is on the Coreg anymore. She is not hypotensive with a heart rate in the 40s. I did talk to the patient as well as her family at length about the importance and ultimate safety of the patient to ensure that they have a up-to-date medication list either on the patient themselves are to use such electronic devices as a phone to keep a up-to-date list of medications. 02/05/18 12:23 Blood sugar is maintaining with oral intake the patient is now alert and awake. Feels much better. skin is pink warm and dry. She is without complaints. Departure - Departure Time of Disposition: 12:23 Disposition: Home, Self-Care 01 Clinical Impression: Hypoglycemia, Bradycardia, CKD (chronic kidney disease) stage 4, GFR 15-29 ml/ min - Discharge Information Instructions: Type 2 Diabetes Mellitus, Diagnosis, Adult, [id number] Additional Instructions: Check blood sugar often today every 2-3 hours while awake. Make sure and eat regular meals today. Decrease insulin tonight at bedtime to 55units just for tonight. Then if glucose okay tomorrow back to normal dosing but still check regularly for the next few days. As you are unaware of your own medications and your lists supplied from [facility] and [facility] pharmacy are different you need to contact Dr. Estrada for management of your heart rate. Please take a few minutes when you are home to make notation in your phone or on a piece of paper of your active medication list as this is the safest way to review your medications and ensure appropriate therapy. Notify Dr. Estrada of changes. Follow up with primary care in 1 week, sooner if problems or worse. Return to the ED if new or worsening symptoms. - My Orders Last 24 Hours: My Active Orders 02/05/18 09:23 EKG 12 Lead [EKG Documentation Completion] [RC] URGENT POC Glucose [Blood Glucose Check, Bedside] [RC] ONETIME 02/05/18 09:25 POC Glucose [Blood Glucose Check, Bedside] [RC] ONETIME 02/05/18 11:09 UA W/MICROSCOPIC [URIN] Stat 02/05/18 12:21 POC Glucose [Blood Glucose Check, Bedside] [RC] ONETIME - Assessment/Plan Last 24 Hours: My Active Orders 02/05/18 09:23 EKG 12 Lead [EKG Documentation Completion] [RC] URGENT POC Glucose [Blood Glucose Check, Bedside] [RC] ONETIME 02/05/18 09:25 POC Glucose [Blood Glucose Check, Bedside] [RC] ONETIME 02/05/18 11:09 UA W/MICROSCOPIC [URIN] Stat 02/05/18 12:21 POC Glucose [Blood Glucose Check, Bedside] [RC] ONETIME Assessment:: Hypoglycemic episode Bradycardia CKD IV DM II Plan: Check blood sugar often today every 2-3 hours while awake. Make sure and eat regular meals today. Decrease insulin tonight at bedtime to 55units just for tonight. Then if glucose okay tomorrow back to normal dosing but still check regularly for the next few days. As you are unaware of your own medications and your lists supplied from [facility] and [facility] pharmacy are different you need to contact Dr. Estrada for management of your heart rate. Please take a few minutes when you are home to make notation in your phone or on a piece of paper of your active medication list as this is the safest way to review your medications and ensure appropriate therapy. Notify Dr. Estrada of changes. Follow up with primary care in 1 week, sooner if problems or worse. Return to the ED if new or worsening symptoms.
[2018-02-05 09:35] VITALS: BP 150/55
--- NOTE | 2018-02-05 09:55 | CR ---
Clinical history: 72-year-old obese female with chest pain. Interpretation: Upright AP portable chest much improved since previous exams 28 January and 13 January 2018 i.e. no longer evidence of "venous congestion or dependent pleural effusion". Persistent cardiomegal y but no cephalization of flow or alveolar edema. No new lung mass, hilar lymphadenopathy or focal lobar pneumonia. No atelectasis/collapse. No pneumothorax.
[2018-02-05 10:04] LABS: ANION GAP 12.5; CHLORIDE,CL 103 mmol/L (101-111); SODIUM,NA 136 mmol/L (135-145)
--- NOTE | 2018-02-08 11:43 | EKG ---
02/05/2018- KALA LOVE - FINDINGS: EKG, per my reading, shows sinus bradycardia at the rate of 43 with right bundle-branch block. [facility] /[id number]
== END 2018-02-05 12:38 | disposition home or self-care (01) ==
LOC: DL.ED 09:03
DX: E11.649 Type 2 diabetes mellitus with hypoglycemia without coma (principal); R00.1 Bradycardia, unspecified; I13.0 Hypertensive heart and chronic kidney disease with heart failure and stage 1 through stage 4 chronic kidney disease, or unspecified chronic kidney disease; I50.9 Heart failure, unspecified; E11.22 Type 2 diabetes mellitus with diabetic chronic kidney disease; N18.4 Chronic kidney disease, stage 4 (severe); E78.00 Pure hypercholesterolemia, unspecified; J45.909 Unspecified asthma, uncomplicated; Z88.8 Allergy status to other drugs, medicaments and biological substances; Z88.5 Allergy status to narcotic agent; Z79.4 Long term (current) use of insulin; Z79.899 Other long term (current) drug therapy; Z79.82 Long term (current) use of aspirin; Z91.018 Allergy to other foods
CPT/HCPCS: 36415; 71045; 80053; 81001; 82962; 83880; 84484; 85025; 93005; 96374; 96375; 99285; J7060

== ENCOUNTER 2019-01-16 01:52 | Emergency (ER) | payer MEDICARE, MEDICAID, OTHER ==
--- NOTE | 2019-01-16 02:12 | EDM.PDOC ---
ED HPI GENERAL MEDICAL PROBLEM - General Chief Complaint: Respiratory Problem Stated Complaint: WHEN SHE LAYS DOWN SHE HAS A HARD TIME BREATHING Time Seen by Provider: 01/16/19 02:00 Source of Information: Reports: Patient History Limitations: Reports: No Limitations - History of Present Illness INITIAL COMMENTS - FREE TEXT/NARRATIVE: This 73 yo female patient reports to the ED with increased shortness of breath when she lyes down. The patient reports her symptoms started 2 nights ago, but seems to have gotten worse. The patient did use her inhaler last night at about 1900, it seemed to help, but the patient did not use it prior to coming to the ED. The patient did not attempt to be seen in the clinic for her shortness of breath. Onset Date: 01/14/19 Duration: Constant, Getting Worse Location: 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 (shortness of breath) Quality: 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 Severity: Moderate Improves with: Reports: None Worsens with: Reports: None Context: 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 Associated Symptoms: Reports: Shortness of Breath - Related Data Allergies Allergy/AdvReac Type Severity Reaction Status Date / Time lisinopril Allergy Other Verified 01/16/19 02:19 neomycin sulfate Allergy Swelling Verified 01/16/19 02:19 [From Neosporin ([id number])] Opioids - Morphine Analogues Allergy Rash Verified 01/16/19 02:19 polymyxin B Allergy Swelling Verified 01/16/19 02:19 [From Neosporin ([id number])] kiwi Allergy Swollen Uncoded 01/16/19 02:19 Eyes Home Meds: Home Meds Insulin Detemir [Levemir Flextouch] 40 units SQ BEDTIME 09/27/15 [History] Simvastatin [Zocor] 20 mg PO BEDTIME 09/27/15 [History] glyBURIDE [Micronase] 5 mg PO BID 09/27/15 [History] Nitroglycerin [IJP: Nitroglycerin] 0.4 mg SL ASDIRECTED 12/17/16 [History] Albuterol [Proventil Neb Soln] 1 vial INH Q6H PRN 08/28/17 [History] Aspirin [Halfprin] 81 mg PO DAILY 08/28/17 [History] Dextran 70/Hypromellose [Artificial Tears] 1 drop EYEBOTH BEDTIME PRN 08/28/17 [ History] Losartan [Cozaar] 1 tab PO BID 09/04/17 [History] Cranberry Extract [Cranberry] 500 mg PO DAILY 10/16/17 [History] Albuterol Sulfate [Proair Hfa] 2 puff INH ASDIRECTED PRN 01/28/18 [History] Carvedilol [Coreg] 1 tab PO BID 01/28/18 [History] Furosemide 1 tab PO DAILY 01/28/18 [History] amLODIPine Besylate [Amlodipine Besylate] 1 tab PO DAILY 01/28/18 [History] hydrALAZINE HCl [Hydralazine HCl] 150 tab PO BID 01/28/18 [History] Past Medical History HEENT History: Reports: None Other HEENT History: wears glasses Cardiovascular History: Reports: Heart Failure, High Cholesterol, Hypertension Respiratory History: Reports: Asthma Gastrointestinal History: Reports: None Genitourinary History: Reports: Chronic Renal Insuffiency Other Genitourinary History: diabetis. 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 Musculoskeletal History: Reports: Arthritis Neurological History: Reports: None Psychiatric History: Reports: None Endocrine/Metabolic History: Reports: Diabetes, Type II Hematologic History: Reports: None Immunologic History: Reports: None Oncologic (Cancer) History: Reports: Breast Dermatologic History: Reports: None - Infectious Disease History Infectious Disease History: Reports: Mumps - Past Surgical History Head Surgeries/Procedures: Reports: None HEENT Surgical History: Reports: Cataract Surgery Cardiovascular Surgical History: 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 (See Below) Other Cardiovascular Surgeries/Procedures: angiogram Respiratory Surgical History: Reports: None GI Surgical History: Reports: Appendectomy, Cholecystectomy, Colonoscopy Female Surgical History: Reports: Cystoscopy, Hysterectomy Musculoskeletal Surgical History: Reports: None Oncologic Surgical History: Reports: Lumpectomy Social & Family History - Family History Family Medical History: Noncontributory - Caffeine Use Caffeine Use: Reports: Coffee Other Caffeine Use: 3 cups daily ED ROS GENERAL - Review of Systems Review Of Systems: ROS reveals no pertinent complaints other than HPI. ED EXAM, GENERAL - Physical Exam Exam: See Below Exam Limited By: No Limitations General Appearance: Alert, WD/WN, No Apparent Distress, Obese Eye Exam: Bilateral Eye: EOMI, Normal Inspection, PERRL Ears: Normal External Exam, Normal Canal, Hearing Grossly Normal, Normal TMs Nose: Normal Inspection, Normal Mucosa, No Blood Throat/Mouth: Normal Inspection, Normal Lips, Normal Teeth, Normal Gums, Normal Oropharynx, Normal Voice, No Airway Compromise Head: Atraumatic, Normocephalic Neck: Normal Inspection, Supple, Non-Tender, Full Range of Motion Respiratory/Chest: No Respiratory Distress, No Accessory Muscle Use, Chest Non- Tender, Crackles (fine bilateral bases) Cardiovascular: Normal Peripheral Pulses, Regular Rate, Rhythm, No Edema, No Gallop, No JVD, No Murmur, No Rub GI/Abdominal: Normal Bowel Sounds, Soft, Non-Tender, No Organomegaly, No Distention, No Abnormal Bruit, No Mass (Female) Exam: Deferred Rectal (Female) Exam: Deferred Back Exam: Normal Inspection, Full Range of Motion, NT Extremities: Normal Inspection, Normal Range of Motion, Non-Tender, Normal Capillary Refill, No Pedal Edema Neurological: Alert, Oriented, CN II-XII Intact, Normal Cognition, Normal Gait, Normal Reflexes, No Motor/Sensory Deficits Psychiatric: Normal Affect, Normal Mood Skin Exam: Warm, Dry, Intact, Normal Color, No Rash Lymphatic: No Adenopathy Course - Vital Signs Last Recorded V/S: Last Vital Signs Temp 36.2 C 01/16/19 01:57 Pulse 63 01/16/19 01:57 Resp 22 H 01/16/19 01:57 BP 159/57 H 01/16/19 01:57 Pulse Ox 96 01/16/19 01:57 - Orders/Labs/Meds Orders: Active Orders 24 hr Category Date Time Status EKG Documentation Completion [RC] URGENT Care 01/16/19 01:59 Active Chest 1V Frontal [CR] Urgent Exams 01/16/19 01:59 Taken CULTURE BLOOD [BC] Stat Lab 01/16/19 02:09 Received Furosemide [Lasix] Med 01/16/19 02:57 Once 40 mg IVPUSH NOW ONE Labs: Laboratory Tests 01/16/19 01/16/19 01/16/19 Range/Units 02:09 02:09 02:09 WBC 8.3 (5.0-10.0) 10^3/uL RBC 3.96 L (4.2-5.4) 10^6/uL Hgb 12.0 (12.0-16.0) g/dL Hct 36.5 L (37.0-47.0) % MCV 92.2 (80-100) fL MCH 30.3 (27.0-34.0) pg MCHC 32.9 L (33.0-35.0) g/dL Plt Count 193 (150-450) 10^3/uL Neut % (Auto) 76.5 H (42.2-75.2) % Lymph % (Auto) 12.4 L (20.5-50.1) % [place] % (Auto) 6.7 (2-8) % Eos % (Auto) 4.2 H (1.0-3.0) % Baso % (Auto) 0.2 (0.0-1.0) % Sodium (135-145) mmol/L Potassium (3.6-5.0) mmol/L Chloride (101-111) mmol/L Carbon Dioxide (21.0-31.0) mmol/L Anion Gap BUN (7-18) mg/dL Creatinine (0.6-1.3) mg/dL Est Cr Clr Drug Dosing mL/min Estimated GFR (MDRD) BUN/Creatinine Ratio Glucose (74-105) mg/dL Lactic Acid 1.1 (0.5-2.2) mmol/L Calcium (8.4-10.2) mg/dl Total Bilirubin (0.2-1.0) mg/dL AST (10-42) IU/L ALT (10-60) IU/L Alkaline Phosphatase (42-121) IU/L Troponin I (0.00-0.02) ng/ml B-Natriuretic Peptide 739 H (0-100) pg/ml Total Protein (6.7-8.2) g/dl Albumin (3.2-5.5) g/dl Globulin Albumin/Globulin Ratio 01/16/19 Range/Units 02:09 WBC (5.0-10.0) 10^3/uL RBC (4.2-5.4) 10^6/uL Hgb (12.0-16.0) g/dL Hct (37.0-47.0) % MCV (80-100) fL MCH (27.0-34.0) pg MCHC (33.0-35.0) g/dL Plt Count (150-450) 10^3/uL Neut % (Auto) (42.2-75.2) % Lymph % (Auto) (20.5-50.1) % [place] % (Auto) (2-8) % Eos % (Auto) (1.0-3.0) % Baso % (Auto) (0.0-1.0) % Sodium 136 (135-145) mmol/L Potassium 3.7 (3.6-5.0) mmol/L Chloride 106 (101-111) mmol/L Carbon Dioxide 20.0 L (21.0-31.0) mmol/L Anion Gap 13.7 BUN 51 H (7-18) mg/dL Creatinine 1.9 H (0.6-1.3) mg/dL Est Cr Clr Drug Dosing 19.51 mL/min Estimated GFR (MDRD) 26 BUN/Creatinine Ratio 26.84 Glucose 305 H (74-105) mg/dL Lactic Acid (0.5-2.2) mmol/L Calcium 8.0 L (8.4-10.2) mg/dl Total Bilirubin 0.9 (0.2-1.0) mg/dL AST 19 (10-42) IU/L ALT 12 (10-60) IU/L Alkaline Phosphatase 85 (42-121) IU/L Troponin I < 0.02 (0.00-0.02) ng/ml B-Natriuretic Peptide (0-100) pg/ml Total Protein 6.6 L (6.7-8.2) g/dl Albumin 3.4 (3.2-5.5) g/dl Globulin 3.2 Albumin/Globulin Ratio 1.06 Departure - Departure Time of Disposition: 02:58 Disposition: Home, Self-Care 01 Condition: Fair Clinical Impression: Elevated brain natriuretic peptide (BNP) level CHF (congestive heart failure) Qualifiers: Heart failure type: systolic Heart failure chronicity: chronic Qualified Code(s ): I50.22 - Chronic systolic (congestive) heart failure - Discharge Information *PRESCRIPTION DRUG MONITORING PROGRAM REVIEWED*: Not Applicable *COPY OF PRESCRIPTION DRUG MONITORING REPORT IN PATIENT KARYN: Not Applicable Forms: ED Department Discharge Care Plan Goals: The patient was advised of the examination, EKG, lab and x-ray results during the visit. The patient was given an IV dose of Lasix while in the ED. The patient was encouraged to continue to take her medications as prescribed. If the patient has any additional symptoms or concerns, the patient should either return to the emergency department or visit her primary care facility. - My Orders Last 24 Hours: My Active Orders 01/16/19 01:59 EKG Documentation Completion [RC] URGENT Chest 1V Frontal [CR] Urgent 01/16/19 02:09 CULTURE BLOOD [BC] Stat 01/16/19 02:57 Furosemide [Lasix] 40 mg IVPUSH NOW ONE - Assessment/Plan Last 24 Hours: My Active Orders 01/16/19 01:59 EKG Documentation Completion [RC] URGENT Chest 1V Frontal [CR] Urgent 01/16/19 02:09 CULTURE BLOOD [BC] Stat 01/16/19 02:57 Furosemide [Lasix] 40 mg IVPUSH NOW ONE
[2019-01-16 02:16] VITALS: BP 159/57
[2019-01-16 02:38] LABS: ANION GAP 13.7; CHLORIDE,CL 106 mmol/L (101-111); SODIUM,NA 136 mmol/L (135-145)
[2019-01-16] MEDS ORDERED: Furosemide 40 MG/4 ML VIAL IVPUSH ONE (02:57)
== END 2019-01-16 03:07 | disposition home or self-care (01) ==
LOC: DL.ED 01:52
DX: I13.0 Hypertensive heart and chronic kidney disease with heart failure and stage 1 through stage 4 chronic kidney disease, or unspecified chronic kidney disease (principal); I50.22 Chronic systolic (congestive) heart failure; E11.22 Type 2 diabetes mellitus with diabetic chronic kidney disease; N18.4 Chronic kidney disease, stage 4 (severe); R79.89 Other specified abnormal findings of blood chemistry; Z88.8 Allergy status to other drugs, medicaments and biological substances; Z88.1 Allergy status to other antibiotic agents; Z79.899 Other long term (current) drug therapy; Z79.82 Long term (current) use of aspirin; Z79.4 Long term (current) use of insulin
CPT/HCPCS: 36415; 71045; 80053; 83605; 83880; 84484; 85025; 87040; 93005; 96374; 99285-25; J1940

== ENCOUNTER 2019-05-05 04:32 | Emergency (ER) | payer MEDICARE, MEDICAID, OTHER ==
[2019-05-05 04:51] VITALS: BP 143/50; PULSE 59
--- NOTE | 2019-05-05 04:54 | EDM.PDOC ---
ED HPI GENERAL MEDICAL PROBLEM - General Chief Complaint: Respiratory Problem Stated Complaint: DIFFICULTY BREATHING Time Seen by Provider: 05/05/19 04:50 Source of Information: Reports: Patient History Limitations: Reports: No Limitations - History of Present Illness INITIAL COMMENTS - FREE TEXT/NARRATIVE: c/o SOB all day and not going away, did take extra lasix but not working and tonight hard to sleep. decided to come in for eval' - Related Data Allergies Allergy/AdvReac Type Severity Reaction Status Date / Time lisinopril Allergy Other Verified 05/05/19 04:43 neomycin sulfate Allergy Swelling Verified 05/05/19 04:43 [From Neosporin ([id number])] Opioids - Morphine Analogues Allergy Rash Verified 05/05/19 04:43 polymyxin B Allergy Swelling Verified 05/05/19 04:43 [From Neosporin ([id number])] kiwi Allergy Swollen Uncoded 01/16/19 02:19 Eyes Home Meds: Home Meds Insulin Detemir [Levemir Flextouch] 40 units SQ BEDTIME 09/27/15 [History] Simvastatin [Zocor] 20 mg PO BEDTIME 09/27/15 [History] glyBURIDE [Micronase] 5 mg PO BID 09/27/15 [History] Nitroglycerin [IJP: Nitroglycerin] 0.4 mg SL ASDIRECTED 12/17/16 [History] Albuterol [Proventil Neb Soln] 1 vial INH Q6H PRN 08/28/17 [History] Aspirin [Halfprin] 81 mg PO DAILY 08/28/17 [History] Dextran 70/Hypromellose [Artificial Tears] 1 drop EYEBOTH BEDTIME PRN 08/28/17 [ History] Cranberry Extract [Cranberry] 500 mg PO DAILY 10/16/17 [History] Albuterol Sulfate [Proair Hfa] 2 puff INH ASDIRECTED PRN 01/28/18 [History] Carvedilol [Coreg] 1 tab PO BID 01/28/18 [History] Furosemide 1 tab PO DAILY 01/28/18 [History] amLODIPine Besylate [Amlodipine Besylate] 1 tab PO DAILY 01/28/18 [History] hydrALAZINE HCl [Hydralazine HCl] 150 tab PO BID 01/28/18 [History] Past Medical History HEENT History: Reports: None Other HEENT History: wears glasses Cardiovascular History: Reports: Heart Failure, High Cholesterol, Hypertension Respiratory History: Reports: Asthma Gastrointestinal History: Reports: None Genitourinary History: Reports: Chronic Renal Insuffiency Other Genitourinary History: diabetis. 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 Musculoskeletal History: Reports: Arthritis Neurological History: Reports: None Psychiatric History: Reports: None Endocrine/Metabolic History: Reports: Diabetes, Type II Hematologic History: Reports: None Immunologic History: Reports: None Oncologic (Cancer) History: Reports: Breast Dermatologic History: Reports: None - Infectious Disease History Infectious Disease History: Reports: Mumps - Past Surgical History Head Surgeries/Procedures: Reports: None HEENT Surgical History: Reports: Cataract Surgery Cardiovascular Surgical History: 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 (See Below) Other Cardiovascular Surgeries/Procedures: angiogram Respiratory Surgical History: Reports: None GI Surgical History: Reports: Appendectomy, Cholecystectomy, Colonoscopy Female Surgical History: Reports: Cystoscopy, Hysterectomy Musculoskeletal Surgical History: Reports: None Oncologic Surgical History: Reports: Lumpectomy Social & Family History - Family History Family Medical History: Noncontributory - Caffeine Use Caffeine Use: Reports: Coffee Other Caffeine Use: 3 cups daily ED ROS GENERAL - Review of Systems Review Of Systems: ROS reveals no pertinent complaints other than HPI. ED EXAM, GENERAL - Physical Exam Exam: See Below Exam Limited By: No Limitations General Appearance: Alert, WD/WN, Mild Distress, Other (discomfort) Ears: Hearing Grossly Normal Throat/Mouth: Normal Voice, No Airway Compromise Head: Atraumatic Neck: Non-Tender, Full Range of Motion Respiratory/Chest: No Accessory Muscle Use, Rales, Rhonchi Cardiovascular: Regular Rate, Rhythm GI/Abdominal: Soft, Non-Tender Extremities: Pedal Edema, Other (2+ bilateral) Neurological: Alert, Oriented, Normal Cognition, No Motor/Sensory Deficits Psychiatric: Flat Affect Skin Exam: Warm, Dry, Normal Color Lymphatic: No Adenopathy Course - Vital Signs Last Recorded V/S: Last Vital Signs Temp 35.9 C 05/05/19 04:46 Pulse 59 L 05/05/19 04:46 Resp 18 05/05/19 04:46 BP 143/50 H 05/05/19 04:46 Pulse Ox 95 05/05/19 04:46 - Orders/Labs/Meds Orders: Active Orders 24 hr Category Date Time Status Furosemide [Lasix] Med 05/05/19 05:38 Once 40 mg PO ONETIME ONE Labs: Laboratory Tests 05/05/19 05/05/19 05/05/19 Range/Units 05:00 05:00 05:00 WBC 5.3 (5.0-10.0) 10^3/uL RBC 3.70 L (4.2-5.4) 10^6/uL Hgb 10.7 L (12.0-16.0) g/dL Hct 33.7 L (37.0-47.0) % MCV 91.1 (80-100) fL MCH 28.9 (27.0-34.0) pg MCHC 31.8 L (33.0-35.0) g/dL Plt Count 185 (150-450) 10^3/uL Neut % (Auto) 72.0 (42.2-75.2) % Lymph % (Auto) 14.2 L (20.5-50.1) % [place] % (Auto) 8.3 H (2-8) % Eos % (Auto) 5.1 H (1.0-3.0) % Baso % (Auto) 0.4 (0.0-1.0) % Sodium 137 (135-145) mmol/L Potassium 3.6 (3.6-5.0) mmol/L Chloride 105 (101-111) mmol/L Carbon Dioxide 22.0 (21.0-31.0) mmol/L Anion Gap 13.6 BUN 57 H (7-18) mg/dL Creatinine 1.9 H (0.6-1.3) mg/dL Est Cr Clr Drug Dosing 19.22 mL/min Estimated GFR (MDRD) 26 BUN/Creatinine Ratio 30.00 Glucose 155 H (74-105) mg/dL Lactic Acid 0.8 (0.5-2.2) mmol/L Calcium 8.5 (8.4-10.2) mg/dl Total Bilirubin 0.7 (0.2-1.0) mg/dL AST 16 (10-42) IU/L ALT 14 (10-60) IU/L Alkaline Phosphatase 80 (42-121) IU/L Troponin I 0.02 (0.00-0.08) ng/mL B-Natriuretic Peptide 774 H (0-100) pg/ml Total Protein 6.5 L (6.7-8.2) g/dl Albumin 3.2 (3.2-5.5) g/dl Globulin 3.3 Albumin/Globulin Ratio 0.97 - Re-Assessments/Exams Free Text/Narrative Re-Assessment/Exam: 05/05/19 05:39 results discussed with pt. Departure - Departure Time of Disposition: 05:40 Disposition: Home, Self-Care 01 Condition: Good Clinical Impression: Elevated brain natriuretic peptide (BNP) level CHF (congestive heart failure) Qualifiers: Heart failure type: systolic Heart failure chronicity: chronic Qualified Code(s ): I50.22 - Chronic systolic (congestive) heart failure - Discharge Information Forms: ED Department Discharge Additional Instructions: 1) don't sleep flat 2) elevate legs as much as possible 3) follow up at clinic - My Orders Last 24 Hours: My Active Orders 05/05/19 05:38 Furosemide [Lasix] 40 mg PO ONETIME ONE - Assessment/Plan Last 24 Hours: My Active Orders 05/05/19 05:38 Furosemide [Lasix] 40 mg PO ONETIME ONE
[2019-05-05 05:22] LABS: ANION GAP 13.6
[2019-05-05] MEDS ORDERED: Furosemide 40 MG Tab PO ONE (05:38)
== END 2019-05-05 05:50 | disposition home or self-care (01) ==
LOC: DL.ED 04:32
DX: I13.0 Hypertensive heart and chronic kidney disease with heart failure and stage 1 through stage 4 chronic kidney disease, or unspecified chronic kidney disease (principal); E11.22 Type 2 diabetes mellitus with diabetic chronic kidney disease; N18.4 Chronic kidney disease, stage 4 (severe); I50.22 Chronic systolic (congestive) heart failure; R79.89 Other specified abnormal findings of blood chemistry; E78.00 Pure hypercholesterolemia, unspecified; J45.909 Unspecified asthma, uncomplicated; Z88.8 Allergy status to other drugs, medicaments and biological substances; Z88.1 Allergy status to other antibiotic agents; Z88.5 Allergy status to narcotic agent; Z91.018 Allergy to other foods; Z79.899 Other long term (current) drug therapy; Z79.4 Long term (current) use of insulin; Z79.82 Long term (current) use of aspirin
CPT/HCPCS: 36415; 71045; 80053; 83605; 83880; 84484; 85025; 99285; A9270

== ENCOUNTER 2019-07-09 09:40 | Emergency (ER) | payer MEDICARE, MEDICAID, OTHER ==
[2019-07-09 10:08] VITALS: BP 134/49; PULSE 68
--- NOTE | 2019-07-09 10:20 | EDM.PDOC ---
ED HPI GENERAL MEDICAL PROBLEM - General Chief Complaint: Genitourinary Problem Stated Complaint: UTI? Time Seen by Provider: 07/09/19 10:10 Source of Information: Reports: Patient, Old Records, RN, RN Notes Reviewed History Limitations: Reports: No Limitations - History of Present Illness INITIAL COMMENTS - FREE TEXT/NARRATIVE: Pt presents to ER from home by POV with c/o pain and burning with urination. Pt reports that she was treated 2 weeks ago for a UTI in clinic, but after several days she was not improving, so the clinic doctor changed her to another antibiotic. She feels that she didn't get completely better with the second antibiotic either. Today pt felt worsening burning with urination. She denies flank pain, hematuria, fevers, or N/V. She was hypoxic on arrival to the ER, but states that is normal after walking that far. She denies chest pain, cough, orthopnea, or edema. Has Hx of CHF. Pt does not known the names of either of the antibiotics she received, and the [facility] pharmacy is closed today. Onset: Gradual Duration: Constant Location: Reports: Abdomen Quality: Reports: Burning, Same as Previous Episode Severity: Moderate Improves with: Reports: None Worsens with: Reports: None Associated Symptoms: Reports: No Other Symptoms Groin Pain Score (Numeric/FACES): 5 - Related Data Allergies Allergy/AdvReac Type Severity Reaction Status Date / Time lisinopril Allergy Other Verified 07/09/19 10:00 neomycin sulfate Allergy Swelling Verified 07/09/19 10:00 [From Neosporin ([id number])] Opioids - Morphine Analogues Allergy Rash Verified 07/09/19 10:00 polymyxin B Allergy Swelling Verified 07/09/19 10:00 [From Neosporin ([id number])] kiwi Allergy Swollen Uncoded 07/09/19 10:00 Eyes Home Meds: Home Meds Insulin Detemir [Levemir Flextouch] 40 units SQ BEDTIME 09/27/15 [History] Simvastatin [Zocor] 20 mg PO BEDTIME 09/27/15 [History] glyBURIDE [Micronase] 5 mg PO BID 09/27/15 [History] Nitroglycerin [IJP: Nitroglycerin] 0.4 mg SL ASDIRECTED 12/17/16 [History] Albuterol [Proventil Neb Soln] 1 vial INH Q6H PRN 08/28/17 [History] Aspirin [Halfprin] 81 mg PO DAILY 08/28/17 [History] Dextran 70/Hypromellose [Artificial Tears] 1 drop EYEBOTH BEDTIME PRN 08/28/17 [ History] Cranberry Fruit Extract [Cranberry] 500 mg PO DAILY 10/16/17 [History] Albuterol Sulfate [Proair Hfa] 2 puff INH ASDIRECTED PRN 01/28/18 [History] Carvedilol [Coreg] 1 tab PO BID 01/28/18 [History] Furosemide 1 tab PO DAILY 01/28/18 [History] amLODIPine Besylate [Amlodipine Besylate] 1 tab PO DAILY 01/28/18 [History] hydrALAZINE HCl [Hydralazine HCl] 150 tab PO BID 01/28/18 [History] Past Medical History HEENT History: Reports: Impaired Vision Other HEENT History: wears glasses Cardiovascular History: Reports: Heart Failure, High Cholesterol, Hypertension Respiratory History: Reports: Asthma Gastrointestinal History: Reports: None Genitourinary History: Reports: Chronic Renal Insuffiency Other Genitourinary History: diabetis. 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 Musculoskeletal History: Reports: Arthritis Neurological History: Reports: None Psychiatric History: Reports: None Endocrine/Metabolic History: Reports: Diabetes, Type II Hematologic History: Reports: None Immunologic History: Reports: None Oncologic (Cancer) History: Reports: Breast Dermatologic History: Reports: None - Infectious Disease History Infectious Disease History: Reports: Mumps - Past Surgical History Head Surgeries/Procedures: Reports: None HEENT Surgical History: Reports: Cataract Surgery Cardiovascular Surgical History: 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 (See Below) Other Cardiovascular Surgeries/Procedures: angiogram Respiratory Surgical History: Reports: None GI Surgical History: Reports: Appendectomy, Cholecystectomy, Colonoscopy Female Surgical History: Reports: Cystoscopy, Hysterectomy Musculoskeletal Surgical History: Reports: None Oncologic Surgical History: Reports: Lumpectomy Social & Family History - Family History Family Medical History: Noncontributory - Tobacco Use Smoking Status *Q: Never Smoker Second Hand Smoke Exposure: No - Caffeine Use Caffeine Use: Reports: None Other Caffeine Use: 3 cups daily - Recreational Drug Use Recreational Drug Use: No - Living Situation & Occupation Living situation: Reports: with Family 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 ED EXAM, RENAL/ - Physical Exam Exam: See Below Exam Limited By: No Limitations General Appearance: Alert, No Apparent Distress, Obese Nose: Normal Inspection Throat/Mouth: Normal Inspection, Normal Voice, No Airway Compromise Head: Atraumatic, Normocephalic Neck: Normal Inspection Respiratory/Chest: No Respiratory Distress, No Accessory Muscle Use, Chest Non- Tender, Decreased Breath Sounds, Rales. No: Crackles, Rhonchi, Wheezing Cardiovascular: Regular Rate, Rhythm, No Edema GI/Abdominal: Normal Bowel Sounds, Soft, No Organomegaly, No Distention, Tender (Mild suprapubic tenderness). No: Guarding, Rigid, Splenomegaly (Female) Exam: Deferred Rectal (Female) Exam: Deferred Back Exam: Normal Inspection. No: CVA Tenderness (L), CVA Tenderness (R) Extremities: Normal Inspection, Normal Range of Motion, Non-Tender, No Pedal Edema Neurological: Alert, Oriented, No Motor/Sensory Deficits Psychiatric: Normal Mood Skin Exam: Warm, Dry, Intact Course - Vital Signs Last Recorded V/S: Last Vital Signs Temp 97.1 F 07/09/19 10:01 Pulse 68 07/09/19 10:01 Resp 16 07/09/19 10:01 BP 134/49 L 07/09/19 10:01 Pulse Ox 85 L 07/09/19 10:01 - Orders/Labs/Meds Orders: Active Orders 24 hr Category Date Time Status Chest 2V [CR] Stat Exams 07/09/19 09:58 Taken CULTURE URINE [RM] Stat Lab 07/09/19 09:44 Received Labs: Laboratory Tests 07/09/19 Range/Units 09:44 Urine Color Yellow (YELLOW) Urine Appearance Turbid (CLEAR) Urine pH 8.5 (5.0-9.0) Ur Specific [place] 1.020 (1.005-1.030) Urine Protein >=300 H (NEGATIVE) Urine Glucose (UA) Negative (NEGATIVE) Urine Ketones Negative (NEGATIVE) Urine Occult Blood Trace-intact H (NEGATIVE) Urine Nitrite Positive H (NEGATIVE) Urine Bilirubin Negative (NEGATIVE) Urine Urobilinogen 1.0 (0.2-1.0) mg/dL Ur Leukocyte Esterase Small H (NEGATIVE) Urine RBC 0-5 /HPF Urine WBC 50-75 H (0-5/HPF) /HPF Ur Epithelial Cells Few (NOT SEEN) /HPF Amorphous Sediment Few (NOT SEEN) /HPF Urine Bacteria Many H (0-FEW/HPF) /HPF Urine Mucus Not seen (NOT SEEN) /LPF Urinalysis Comment See note Meds: Medications Discontinued Medications Generic Name Dose Route Start Last Admin Trade Name Freq PRN Reason Stop Dose Admin Ceftriaxone Sodium 1 gm/ 0 gm 07/09/19 10:22 Lidocaine HCl 2.1 ml IM 07/09/19 10:23 ONETIME ONE - Radiology Interpretation Free Text/Narrative:: [facility] Final Radiology Report Call: [phone] assistance Online chat: [email or web address] Name: KALA LOVE Age: 74Years F Date: 07/09/2019 SSN: -- : [id number] Study: XR CHEST 2 VIEWS FRONTAL & LAT Requesting Physician: KATY JARA Images: 2 Addl Studies: Provided Clinical History: Contrast: Contrast Medium: Contrast Amount: Contrast Method: CONFIDENTIALITY STATEMENT This report is intended only for use by the referring physician, and only in accordance with law. If you received this in error, call [phone]. Page 1 of 1 PROCEDURE INFORMATION: Exam: XR Chest, 2 Views Exam date and time: 07/09/2019 9:59 AM Age: 74 years old Clinical indication: Shortness of breath and other: Hypoxia, rales TECHNIQUE: Imaging protocol: XR of the chest Views: 2 views. COMPARISON: CR Chest 1V Frontal 05/05/2019 5:14 AM FINDINGS: Lungs: There is mild perihilar interstitial prominence consistent with volume overload or early congestive heart failure. Pleural space: Unremarkable. No pleural effusion. No pneumothorax. Heart/Mediastinum: The heart is enlarged. Bones/joints: Unremarkable. Soft tissues: Surgical clips in the left axilla. IMPRESSION: There is mild perihilar interstitial prominence consistent with volume overload or early congestive heart failure. Thank you for allowing us to participate in the care of your patient. Dictated and Authenticated by: Shay Nick MD 07/09/2019 10:12 AM Central Time ([place] & [place]) Departure - Departure Time of Disposition: 10:25 Disposition: Home, Self-Care 01 Condition: Good Clinical Impression: UTI, Urinary tract infectious disease Chronic CHF (congestive heart failure) Qualifiers: Heart failure type: unspecified Qualified Code(s): I50.9 - Heart failure, unspecified - Discharge Information *PRESCRIPTION DRUG MONITORING PROGRAM REVIEWED*: Not Applicable *COPY OF PRESCRIPTION DRUG MONITORING REPORT IN PATIENT KARYN: Not Applicable Instructions: Urinary Tract Infection, Adult Forms: ED Department Discharge Additional Instructions: Rx: Cipro 500mg Rx: Pyridium 20mg *Turns urine orange* Take one extra Lasix (Furosemide) tablet today. Follow up in clinic for urine recheck in 5 to 7 days. Sepsis Event Note - Evaluation Sepsis Screening Result: No Definite Risk - Focused Exam Vital Signs: Vital Signs Temp Pulse Resp BP Pulse Ox 07/09/19 10:01 97.1 F 68 16 134/49 L 85 L Date Exam was Performed: 07/09/19 Time Exam was Performed: 10:24 - My Orders Last 24 Hours: My Active Orders 07/09/19 09:44 CULTURE URINE [RM] Stat 07/09/19 09:58 Chest 2V [CR] Stat - Assessment/Plan Last 24 Hours: My Active Orders 07/09/19 09:44 CULTURE URINE [RM] Stat 07/09/19 09:58 Chest 2V [CR] Stat
[2019-07-09] MEDS ORDERED: cefTRIAXone 1 GM, Lidocaine 1% 2.1 ML IM ONE ×2 (10:22)
== END 2019-07-09 10:36 | disposition home or self-care (01) ==
LOC: DL.ED 09:40
DX: N39.0 Urinary tract infection, site not specified (principal); R09.02 Hypoxemia; H54.7 Unspecified visual loss; E78.00 Pure hypercholesterolemia, unspecified; I50.9 Heart failure, unspecified; I11.0 Hypertensive heart disease with heart failure; I13.0 Hypertensive heart and chronic kidney disease with heart failure and stage 1 through stage 4 chronic kidney disease, or unspecified chronic kidney disease; E11.22 Type 2 diabetes mellitus with diabetic chronic kidney disease; N18.4 Chronic kidney disease, stage 4 (severe); M19.90 Unspecified osteoarthritis, unspecified site; Z85.3 Personal history of malignant neoplasm of breast; Z90.49 Acquired absence of other specified parts of digestive tract; Z88.8 Allergy status to other drugs, medicaments and biological substances; Z91.018 Allergy to other foods; Z79.82 Long term (current) use of aspirin; Z90.710 Acquired absence of both cervix and uterus; Z79.899 Other long term (current) drug therapy
CPT/HCPCS: 71046; 81001; 87086; 87088; 87186; 96372; 99283; J0696; J2001

== ENCOUNTER 2019-07-30 04:00 | Emergency (ER) | payer MEDICARE, MEDICAID, OTHER ==
[2019-07-30 04:08] VITALS: PULSE 56
[2019-07-30] MEDS ORDERED: Nitroglycerin 0.4 MG Tab.SL SL ONE (04:13)
[2019-07-30 04:18] VITALS: BP 125/44
[2019-07-30 04:59] LABS: ANION GAP 15.6
--- NOTE | 2019-07-30 06:35 | EDM.PDOC ---
ED HPI GENERAL MEDICAL PROBLEM - General Chief Complaint: Chest Pain Stated Complaint: AMBULANCE Time Seen by Provider: 07/30/19 04:05 Source of Information: Reports: Patient, EMS History Limitations: Reports: No Limitations - History of Present Illness INITIAL COMMENTS - FREE TEXT/NARRATIVE: ED with vague c/o chest pain, points epigastric, reports having a virus from granddaughter with some congestion ocassional cough, non productive. Hands cramping yesterday am. No nausea or vomiting. Denies SOB. No increase in edema. Chest Pain Score (Numeric/FACES): 6 - Related Data Allergies Allergy/AdvReac Type Severity Reaction Status Date / Time lisinopril Allergy Other Verified 07/30/19 04:08 neomycin sulfate Allergy Swelling Verified 07/30/19 04:08 [From Neosporin ([id number])] Opioids - Morphine Analogues Allergy Rash Verified 07/30/19 04:08 polymyxin B Allergy Swelling Verified 07/30/19 04:08 [From Neosporin ([id number])] kiwi Allergy Swollen Uncoded 07/30/19 04:08 Eyes Home Meds: Home Meds Insulin Detemir [Levemir Flextouch] 40 units SQ BEDTIME 09/27/15 [History] Simvastatin [Zocor] 20 mg PO BEDTIME 09/27/15 [History] glyBURIDE [Micronase] 5 mg PO BID 09/27/15 [History] Nitroglycerin [IJP: Nitroglycerin] 0.4 mg SL ASDIRECTED 12/17/16 [History] Albuterol [Proventil Neb Soln] 3 ml INH Q6H PRN 08/28/17 [History] Aspirin [Halfprin] 81 mg PO DAILY 08/28/17 [History] Dextran 70/Hypromellose [Artificial Tears] 1 drop EYEBOTH BEDTIME PRN 08/28/17 [ History] Cranberry Fruit Extract [Cranberry] 500 mg PO DAILY 10/16/17 [History] Albuterol Sulfate [Proair Hfa] 2 puff INH ASDIRECTED PRN 01/28/18 [History] Carvedilol [Coreg] 25 mg PO BIDMEALS 01/28/18 [History] Furosemide 40 mg PO DAILY 01/28/18 [History] amLODIPine Besylate [Amlodipine Besylate] 5 mg PO DAILY 01/28/18 [History] hydrALAZINE HCl [Hydralazine HCl] 200 mg PO BID 01/28/18 [History] Calcitriol [Rocaltrol] 0.5 mcg PO DAILY 07/30/19 [History] Loratadine 10 mg PO ASDIRECTED PRN 07/30/19 [History] Meclizine [Antivert] 25 mg PO Q6H PRN 07/30/19 [History] Montelukast [Singulair] 10 mg PO ASDIRECTED PRN 07/30/19 [History] Nitroglycerin 6.5 mg PO BID 07/30/19 [History] metOLazone [Metolazone] 2.5 mg PO ASDIRECTED 07/30/19 [History] Past Medical History HEENT History: Reports: Impaired Vision Other HEENT History: wears glasses Cardiovascular History: Reports: Heart Failure, High Cholesterol, Hypertension Respiratory History: Reports: Asthma Gastrointestinal History: Reports: None Genitourinary History: Reports: Chronic Renal Insuffiency Other Genitourinary History: diabetis. 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 Musculoskeletal History: Reports: Arthritis Neurological History: Reports: None Psychiatric History: Reports: None Endocrine/Metabolic History: Reports: Diabetes, Type II Hematologic History: Reports: None Immunologic History: Reports: None Oncologic (Cancer) History: Reports: Breast Dermatologic History: Reports: None - Infectious Disease History Infectious Disease History: Reports: Mumps - Past Surgical History Head Surgeries/Procedures: Reports: None HEENT Surgical History: Reports: Cataract Surgery Cardiovascular Surgical History: 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 (See Below) Other Cardiovascular Surgeries/Procedures: angiogram Respiratory Surgical History: Reports: None GI Surgical History: Reports: Appendectomy, Cholecystectomy, Colonoscopy Female Surgical History: Reports: Cystoscopy, Hysterectomy Musculoskeletal Surgical History: Reports: None Oncologic Surgical History: Reports: Lumpectomy Social & Family History - Family History Family Medical History: Noncontributory - Tobacco Use Smoking Status *Q: Never Smoker Second Hand Smoke Exposure: No - Caffeine Use Caffeine Use: Reports: None Other Caffeine Use: 3 cups daily - Recreational Drug Use Recreational Drug Use: No - Living Situation & Occupation Living situation: Reports: with Family 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 ED EXAM, GENERAL - Physical Exam Exam: See Below Exam Limited By: No Limitations General Appearance: Alert, No Apparent Distress Eye Exam: Bilateral Eye: EOMI Ears: Normal External Exam, Hearing Grossly Normal Nose: Normal Inspection Throat/Mouth: Normal Inspection, Normal Lips, Normal Voice Head: Atraumatic, Normocephalic Neck: Normal Inspection Respiratory/Chest: No Respiratory Distress, Lungs Clear, Normal Breath Sounds Cardiovascular: Regular Rate, Rhythm, Bradycardia, Diastolic Murmur GI/Abdominal: Normal Bowel Sounds, Soft, Non-Tender Back Exam: Full Range of Motion Extremities: Normal Inspection. No: Pedal Edema Neurological: Alert, Oriented, Normal Cognition Psychiatric: Flat Affect Skin Exam: Warm, Dry, Intact, Normal Color Course - Vital Signs Last Recorded V/S: Last Vital Signs Temp 97.4 F 07/30/19 04:04 Pulse 56 L 07/30/19 04:04 Resp 20 07/30/19 04:04 BP 125/44 L 07/30/19 04:16 Pulse Ox 95 07/30/19 04:15 - Orders/Labs/Meds Orders: Active Orders 24 hr Category Date Time Status EKG Documentation Completion [RC] URGENT Care 07/30/19 04:11 Active Labs: Laboratory Tests 07/30/19 07/30/19 07/30/19 Range/Units 04:28 04:28 04:28 WBC 1.1 L* (5.0-10.0) 10^3/uL RBC 3.26 L (4.2-5.4) 10^6/uL Hgb 9.4 L (12.0-16.0) g/dL Hct 29.2 L (37.0-47.0) % MCV 89.6 (80-100) fL MCH 28.8 (27.0-34.0) pg MCHC 32.2 L (33.0-35.0) g/dL Plt Count 225 (150-450) 10^3/uL Neut % (Auto) 6.5 L (42.2-75.2) % Lymph % (Auto) 43.6 (20.5-50.1) % Adams % (Auto) 34.5 H (2-8) % Eos % (Auto) 14.5 H (1.0-3.0) % Baso % (Auto) 0.9 (0.0-1.0) % Add Manual Diff Yes Neutrophils % (Manual) 7 L (42-75) % Lymphocytes % (Manual) 44 (20-50) % Monocytes % (Manual) 38 H (2-8) % Eosinophils % (Manual) 11 H (1-3) % Sodium 133 L (135-145) mmol/L Potassium 3.6 (3.6-5.0) mmol/L Chloride 100 L (101-111) mmol/L Carbon Dioxide 21.0 (21.0-31.0) mmol/L Anion Gap 15.6 BUN 91 H D (7-18) mg/dL Creatinine 2.5 H (0.6-1.3) mg/dL Est Cr Clr Drug Dosing 14.61 mL/min Estimated GFR (MDRD) 19 BUN/Creatinine Ratio 36.40 Glucose 109 H (74-105) mg/dL Calcium 8.5 (8.4-10.2) mg/dl Total Bilirubin 0.8 (0.2-1.0) mg/dL AST 16 (10-42) IU/L ALT 16 (10-60) IU/L Alkaline Phosphatase 83 (42-121) IU/L Creatine Kinase 33 (26-174) IU/L Creatine Kinase Index 4.2 H (0-2.4) % CK-MB (CK-2) 1.40 (0.4-4.7) ng/mL Troponin I 0.03 H* (0.00-0.02) ng/ml B-Natriuretic Peptide 388 H (0-100) pg/ml Total Protein 6.8 (6.7-8.2) g/dl Albumin 3.1 L (3.2-5.5) g/dl Globulin 3.7 Albumin/Globulin Ratio 0.84 Amylase 6 L (28-100) U/L Lipase 31 (22-51) U/L Meds: Medications Discontinued Medications Generic Name Dose Route Start Last Admin Trade Name Freq PRN Reason Stop Dose Admin Nitroglycerin 0.4 mg 07/30/19 04:13 07/30/19 04:16 Nitrostat SL 07/30/19 04:14 0.4 mg ONETIME ONE Administration - Radiology Interpretation Free Text/Narrative:: CXR CHF, cardiomegaly - Re-Assessments/Exams Free Text/Narrative Re-Assessment/Exam: Nitro with relief of symptoms. VSS. Departure - Departure Time of Disposition: 07:10 Disposition: DC/Tfer to Acute Hospital 02 Reason for Transfer *Q: Other Condition: Good Clinical Impression: CKD (chronic kidney disease) stage 4, GFR 15-29 ml/min, Elevated troponin I level Chest pain Qualifiers: Chest pain type: unspecified Qualified Code(s): R07.9 - Chest pain, unspecified Chronic CHF (congestive heart failure) Qualifiers: Heart failure type: unspecified Qualified Code(s): I50.9 - Heart failure, unspecified Forms: ED Department Discharge Sepsis Event Note - Evaluation Sepsis Screening Result: No Definite Risk - Focused Exam Date Exam was Performed: 07/31/19 Time Exam was Performed: 04:29 - My Orders Last 24 Hours: My Active Orders 07/30/19 04:11 EKG Documentation Completion [RC] URGENT - Assessment/Plan Last 24 Hours: My Active Orders 07/30/19 04:11 EKG Documentation Completion [RC] URGENT
== END 2019-07-30 07:10 ==
LOC: DL.ED 04:00
DX: I13.0 Hypertensive heart and chronic kidney disease with heart failure and stage 1 through stage 4 chronic kidney disease, or unspecified chronic kidney disease (principal); E11.22 Type 2 diabetes mellitus with diabetic chronic kidney disease; I50.9 Heart failure, unspecified; N18.4 Chronic kidney disease, stage 4 (severe); R74.8 Abnormal levels of other serum enzymes; Z88.2 Allergy status to sulfonamides; Z91.018 Allergy to other foods; Z79.4 Long term (current) use of insulin; Z79.899 Other long term (current) drug therapy; Z79.82 Long term (current) use of aspirin
CPT/HCPCS: 36415; 71045; 80053; 82150; 82550; 82553; 83690; 83880; 84484; 85025; 93005; 99285; A9270

== ENCOUNTER 2019-11-23 01:57 | Emergency (ER) | payer MEDICARE, MEDICAID, OTHER ==
[2019-11-23 02:07] VITALS: BP 163/72; PULSE 76
--- NOTE | 2019-11-23 02:31 | EDM.PDOC ---
ED HPI GENERAL MEDICAL PROBLEM - General Chief Complaint: Respiratory Problem Stated Complaint: SOB Time Seen by Provider: 11/23/19 02:15 Source of Information: Reports: Patient History Limitations: Reports: No Limitations - History of Present Illness INITIAL COMMENTS - FREE TEXT/NARRATIVE: This 74 yo female patient reports to the ED with increased shortness of breath. The patient reports her shortness of breath started last evening at about 2200. The patient reports she has continued to have shortness of breath since that time. The patient reports she was taken off her lasix in September by her kiln puller. The patient reports she has noticed some increased swelling of her left leg. Onset Date: 11/22/19 Onset Time: 22:00 Duration: Constant Location: Reports: Chest Quality: 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 Severity: Moderate Improves with: Reports: None Worsens with: Reports: None Context: 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 Associated Symptoms: Reports: Shortness of Breath - Related Data Allergies Allergy/AdvReac Type Severity Reaction Status Date / Time lisinopril Allergy Other Verified 11/23/19 02:13 neomycin sulfate Allergy Swelling Verified 11/23/19 02:13 [From Neosporin ([id number])] Opioids - Morphine Analogues Allergy Rash Verified 11/23/19 02:13 polymyxin B Allergy Swelling Verified 11/23/19 02:13 [From Neosporin ([id number])] kiwi Allergy Swollen Uncoded 11/23/19 02:13 Eyes Home Meds: Home Meds Insulin Detemir [Levemir Flextouch] 40 units SQ BEDTIME 09/27/15 [History] glyBURIDE [Micronase] 5 mg PO BID 09/27/15 [History] Nitroglycerin [IJP: Nitroglycerin] 0.4 mg SL ASDIRECTED 12/17/16 [History] Albuterol [Proventil Neb Soln] 3 ml INH Q6H PRN 08/28/17 [History] Aspirin [Halfprin] 81 mg PO DAILY 08/28/17 [History] Dextran 70/Hypromellose [Artificial Tears] 1 drop EYEBOTH BEDTIME PRN 08/28/17 [ History] Cranberry Fruit Extract [Cranberry] 500 mg PO DAILY 10/16/17 [History] Albuterol Sulfate [Proair Hfa] 2 puff INH ASDIRECTED PRN 01/28/18 [History] amLODIPine Besylate [Amlodipine Besylate] 5 mg PO DAILY 01/28/18 [History] carvediloL [Coreg] 25 mg PO BIDMEALS 01/28/18 [History] Loratadine 10 mg PO ASDIRECTED PRN 07/30/19 [History] Meclizine [Antivert] 25 mg PO Q6H PRN 07/30/19 [History] Montelukast [Singulair] 10 mg PO ASDIRECTED PRN 07/30/19 [History] Nitroglycerin 6.5 mg PO BID 07/30/19 [History] calcitrioL [Rocaltrol] 0.5 mcg PO DAILY 07/30/19 [History] metOLazone [Metolazone] 2.5 mg PO ASDIRECTED 07/30/19 [History] atorvaSTATin [Lipitor] 40 mg PO DAILY 11/23/19 [History] Past Medical History HEENT History: Reports: Impaired Vision Other HEENT History: wears glasses Cardiovascular History: Reports: Heart Failure, High Cholesterol, Hypertension Respiratory History: Reports: Asthma Gastrointestinal History: Reports: None Genitourinary History: Reports: Chronic Renal Insuffiency Other Genitourinary History: diabetis. 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 CHECK OUT CLERK History: hysterectomy Musculoskeletal History: Reports: Arthritis Neurological History: Reports: None Psychiatric History: Reports: None Endocrine/Metabolic History: Reports: Diabetes, Type II Hematologic History: Reports: None Immunologic History: Reports: None Oncologic (Cancer) History: Reports: Breast Dermatologic History: Reports: None - Infectious Disease History Infectious Disease History: Reports: Mumps - Past Surgical History Head Surgeries/Procedures: Reports: None HEENT Surgical History: Reports: Cataract Surgery Cardiovascular Surgical History: 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 (See Below) Other Cardiovascular Surgeries/Procedures: angiogram Respiratory Surgical History: Reports: None GI Surgical History: Reports: Appendectomy, Cholecystectomy, Colonoscopy Female Surgical History: Reports: Cystoscopy, Hysterectomy Musculoskeletal Surgical History: Reports: None Oncologic Surgical History: Reports: Lumpectomy Social & Family History - Family History Family Medical History: Noncontributory - Tobacco Use Smoking Status *Q: Never Smoker Second Hand Smoke Exposure: No - Caffeine Use Caffeine Use: Reports: Coffee Other Caffeine Use: 3 cups daily - Recreational Drug Use Recreational Drug Use: No - Living Situation & Occupation Living situation: Reports: with Family 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 ED EXAM, GENERAL - Physical Exam Exam: See Below Exam Limited By: No Limitations General Appearance: Alert, WD/WN, Moderate Distress Eye Exam: Bilateral Eye: EOMI, Normal Inspection, PERRL Ears: Normal External Exam, Normal Canal, Hearing Grossly Normal, Normal TMs Nose: Normal Inspection, Normal Mucosa, No Blood Throat/Mouth: Normal Inspection, Normal Lips, Normal Teeth, Normal Gums, Normal Oropharynx, Normal Voice, No Airway Compromise Head: Atraumatic, Normocephalic Neck: Normal Inspection, Supple, Non-Tender, Full Range of Motion Respiratory/Chest: Decreased Breath Sounds (throughout) Cardiovascular: Normal Peripheral Pulses, Regular Rate, Rhythm, No Edema, No Gallop, No JVD, No Murmur, No Rub GI/Abdominal: Normal Bowel Sounds, Soft, Non-Tender, No Organomegaly, No Distention, No Abnormal Bruit, No Mass (Female) Exam: Deferred Rectal (Female) Exam: Deferred Back Exam: Normal Inspection, Full Range of Motion, NT Extremities: Normal Inspection, Normal Range of Motion, Non-Tender, Normal Capillary Refill, No Pedal Edema Neurological: Alert, Oriented, CN II-XII Intact, Normal Cognition, Normal Gait, Normal Reflexes, No Motor/Sensory Deficits Psychiatric: Normal Affect, Normal Mood Skin Exam: Warm, Dry, Intact, Normal Color, No Rash Lymphatic: No Adenopathy Course - Vital Signs Last Recorded V/S: Last Vital Signs Temp 35.8 C L 11/23/19 02:03 Pulse 76 11/23/19 02:03 Resp 23 H 11/23/19 02:03 BP 163/72 H 11/23/19 02:03 Pulse Ox 94 L 11/23/19 02:03 - Orders/Labs/Meds Orders: Active Orders 24 hr Category Date Time Status EKG 12 Lead [EKG Documentation Completion] [RC] URGENT Care 11/23/19 02:12 Active CULTURE BLOOD [BC] Stat Lab 11/23/19 02:20 Results Labs: Laboratory Tests 11/23/19 11/23/19 11/23/19 Range/Units 02:20 02:20 02:20 WBC 7.3 (5.0-10.0) 10^3/uL RBC 3.81 L (4.2-5.4) 10^6/uL Hgb 11.5 L D (12.0-16.0) g/dL Hct 35.2 L (37.0-47.0) % MCV 92.4 (80-100) fL MCH 30.2 (27.0-34.0) pg MCHC 32.7 L (33.0-35.0) g/dL Plt Count 215 (150-450) 10^3/uL Neut % (Auto) 73.5 (42.2-75.2) % Lymph % (Auto) 15.7 L (20.5-50.1) % [place] % (Auto) 6.1 (2-8) % Eos % (Auto) 4.0 H (1.0-3.0) % Baso % (Auto) 0.7 (0.0-1.0) % Sodium 136 (136-145) mmol/L Potassium 4.6 (3.5-5.1) mmol/L Chloride 103 (98-107) mmol/L Carbon Dioxide 22 (21-32) mmol/L Anion Gap 15.6 H (7-13) mEq/L BUN 47 H (7-18) mg/dL Creatinine 2.20 H (0.55-1.02) mg/dL Est Cr Clr Drug Dosing 16.60 mL/min Estimated GFR (MDRD) 22 BUN/Creatinine Ratio 21.4 (No establ ref range) Glucose 278 H (74-99) mg/dL Lactic Acid 1.0 (0.4-2.0) mmol/L Calcium 8.5 (8.5-10.1) mg/dL Total Bilirubin 0.4 (0.2-1.0) mg/dL AST 24 (15-37) U/L ALT 28 (14-59) U/L Alkaline Phosphatase 160 H (46-116) U/L Troponin I 0.032 (0.000-0.056) ng/mL B-Natriuretic Peptide 1030 H (0-100) pg/ml Total Protein 6.4 (6.4-8.2) g/dL Albumin 2.7 L (3.4-5.0) g/dL Globulin 3.7 Albumin/Globulin Ratio 0.73 Meds: Medications Discontinued Medications Generic Name Dose Route Start Last Admin Trade Name Breanna PRN Reason Stop Dose Admin Furosemide 40 mg 11/23/19 02:40 11/23/19 03:04 Lasix IVPUSH 11/23/19 02:41 40 mg NOW ONE Administration Departure - Departure Time of Disposition: 03:11 Disposition: Home, Self-Care 01 Condition: Fair Clinical Impression: Elevated brain natriuretic peptide (BNP) level CHF (congestive heart failure) Qualifiers: Heart failure type: systolic Heart failure chronicity: chronic Qualified Code(s ): I50.22 - Chronic systolic (congestive) heart failure - Discharge Information *PRESCRIPTION DRUG MONITORING PROGRAM REVIEWED*: Not Applicable *COPY OF PRESCRIPTION DRUG MONITORING REPORT IN PATIENT KARYN: Not Applicable Instructions: Heart Failure, [id number] Forms: ED Department Discharge Care Plan Goals: The patient was advised of the examination, lab and EKG results during the visit. The patient was given an IV dose of Lasix while in the ED. The patient was discharged with a script for Lasix (40 mg) #20 to take 1 by mouth daily. The patient was encouraged to manage her fluid intake. If the patient has any additional symptoms or concerns, the patient should visit her primary care facility or return to the emergency department. Sepsis Event Note - Evaluation Sepsis Screening Result: No Definite Risk - Focused Exam Vital Signs: Vital Signs Temp Pulse Resp BP Pulse Ox 11/23/19 02:03 35.8 C L 76 23 H 163/72 H 94 L Date Exam was Performed: 11/23/19 Time Exam was Performed: 03:10 - My Orders Last 24 Hours: My Active Orders 11/23/19 02:12 EKG 12 Lead [EKG Documentation Completion] [RC] URGENT 11/23/19 02:20 CULTURE BLOOD [BC] Stat - Assessment/Plan Last 24 Hours: My Active Orders 11/23/19 02:12 EKG 12 Lead [EKG Documentation Completion] [RC] URGENT 11/23/19 02:20 CULTURE BLOOD [BC] Stat
[2019-11-23] MEDS ORDERED: Furosemide 40 MG/4 ML VIAL IVPUSH ONE (02:40)
[2019-11-23 02:54] LABS: ANION GAP 15.6 mEq/L (7-13)
== END 2019-11-23 03:16 | disposition home or self-care (01) ==
LOC: DL.ED 01:57
DX: I13.0 Hypertensive heart and chronic kidney disease with heart failure and stage 1 through stage 4 chronic kidney disease, or unspecified chronic kidney disease (principal); E11.22 Type 2 diabetes mellitus with diabetic chronic kidney disease; N18.4 Chronic kidney disease, stage 4 (severe); I50.22 Chronic systolic (congestive) heart failure; E78.00 Pure hypercholesterolemia, unspecified; J45.909 Unspecified asthma, uncomplicated; Z88.8 Allergy status to other drugs, medicaments and biological substances; Z88.5 Allergy status to narcotic agent; Z79.4 Long term (current) use of insulin; Z79.82 Long term (current) use of aspirin; Z79.899 Other long term (current) drug therapy
CPT/HCPCS: 36415; 80053; 83605; 83880; 84484; 85025; 87040; 93005; 96374; 99285; J1940; 99284

== ENCOUNTER 2020-04-12 04:19 | Emergency (ER) | payer MEDICARE, MEDICAID ==
[2020-04-12 04:24] VITALS: BP 147/72; PULSE 76
[2020-04-12] MEDS ORDERED: Albuterol/Ipratropium 3.0-0.5 MG/3 ML Neb Soln NEB ONE (04:32)
[2020-04-12] MEDS ORDERED: predniSONE 20 MG Tab PO ONE (04:32)
--- NOTE | 2020-04-12 04:37 | EDM.PDOC ---
ED HPI GENERAL MEDICAL PROBLEM - General Chief Complaint: Respiratory Problem Stated Complaint: ASTHMA WHEN LAYS FLAT Time Seen by Provider: 04/12/20 04:34 Source of Information: Reports: Patient History Limitations: Reports: No Limitations - History of Present Illness INITIAL COMMENTS - FREE TEXT/NARRATIVE: states her kids were cutting hay today and asthma acted up. been using inhaler but not helping. - Related Data Allergies Allergy/AdvReac Type Severity Reaction Status Date / Time lisinopril Allergy Other Verified 04/12/20 04:32 neomycin sulfate Allergy Swelling Verified 04/12/20 04:32 [From Neosporin ([id number])] Opioids - Morphine Analogues Allergy Rash Verified 04/12/20 04:32 polymyxin B Allergy Swelling Verified 04/12/20 04:32 [From Neosporin ([id number])] kiwi Allergy Swollen Uncoded 04/12/20 04:32 Eyes Home Meds: Home Meds Insulin Detemir [Levemir Flextouch] 40 units SQ BEDTIME 09/27/15 [History] glyBURIDE [Micronase] 5 mg PO BID 09/27/15 [History] Nitroglycerin [IJP: Nitroglycerin] 0.4 mg SL ASDIRECTED 12/17/16 [History] Albuterol [Proventil Neb Soln] 3 ml INH Q6H PRN 08/28/17 [History] Aspirin [Halfprin] 81 mg PO DAILY 08/28/17 [History] Dextran 70/Hypromellose [Artificial Tears] 1 drop EYEBOTH BEDTIME PRN 08/28/17 [History] Cranberry Fruit Extract [Cranberry] 500 mg PO DAILY 10/16/17 [History] Albuterol Sulfate [Proair Hfa] 2 puff INH ASDIRECTED PRN 01/28/18 [History] amLODIPine Besylate [Amlodipine Besylate] 5 mg PO DAILY 01/28/18 [History] carvediloL [Coreg] 25 mg PO BIDMEALS 01/28/18 [History] Loratadine 10 mg PO ASDIRECTED PRN 07/30/19 [History] Meclizine [Antivert] 25 mg PO Q6H PRN 07/30/19 [History] Montelukast [Singulair] 10 mg PO ASDIRECTED PRN 07/30/19 [History] Nitroglycerin 6.5 mg PO BID 07/30/19 [History] calcitrioL [Rocaltrol] 0.5 mcg PO DAILY 07/30/19 [History] metOLazone [Metolazone] 2.5 mg PO ASDIRECTED 07/30/19 [History] atorvaSTATin [Lipitor] 40 mg PO DAILY 11/23/19 [History] Past Medical History HEENT History: Reports: Impaired Vision Other HEENT History: wears glasses Cardiovascular History: Reports: Heart Failure, High Cholesterol, Hypertension Respiratory History: Reports: Asthma Gastrointestinal History: Reports: None Genitourinary History: Reports: Chronic Renal Insuffiency Other Genitourinary History: diabetis. 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 WIRE STOCKKEEPER History: hysterectomy Musculoskeletal History: Reports: Arthritis Neurological History: Reports: None Psychiatric History: Reports: None Endocrine/Metabolic History: Reports: Diabetes, Type II Hematologic History: Reports: None Immunologic History: Reports: None Oncologic (Cancer) History: Reports: Breast Dermatologic History: Reports: None - Infectious Disease History Infectious Disease History: Reports: Mumps - Past Surgical History Head Surgeries/Procedures: Reports: None HEENT Surgical History: Reports: Cataract Surgery Cardiovascular Surgical History: 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 (See Below) Other Cardiovascular Surgeries/Procedures: angiogram Respiratory Surgical History: Reports: None GI Surgical History: Reports: Appendectomy, Cholecystectomy, Colonoscopy Female Surgical History: Reports: Cystoscopy, Hysterectomy Musculoskeletal Surgical History: Reports: None Oncologic Surgical History: Reports: Lumpectomy Social & Family History - Family History Family Medical History: Noncontributory - Tobacco Use Smoking Status *Q: Never Smoker Second Hand Smoke Exposure: No - Caffeine Use Caffeine Use: Reports: Coffee Other Caffeine Use: 3 cups daily - Recreational Drug Use Recreational Drug Use: No - Living Situation & Occupation Living situation: Reports: with Family 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 ED EXAM, GENERAL - Physical Exam Exam: See Below Exam Limited By: No Limitations General Appearance: Alert, WD/WN, Mild Distress Ears: Hearing Grossly Normal Throat/Mouth: Normal Voice, No Airway Compromise Head: Atraumatic Neck: Non-Tender, Full Range of Motion Respiratory/Chest: No Respiratory Distress, No Accessory Muscle Use, Rhonchi, Wheezing Cardiovascular: Regular Rate, Rhythm GI/Abdominal: Soft, Non-Tender (Female) Exam: Deferred Rectal (Female) Exam: Deferred Neurological: Alert, Oriented, Normal Cognition, Normal Gait, No Motor/Sensory Deficits Psychiatric: Normal Affect, Normal Mood Skin Exam: Warm, Dry, Normal Color Lymphatic: No Adenopathy Course - Vital Signs Last Recorded V/S: Last Vital Signs Temp 35.6 C L 04/12/20 04:23 Pulse 76 04/12/20 04:23 Resp 22 H 04/12/20 04:23 BP 147/72 H 04/12/20 04:23 Pulse Ox 93 L 04/12/20 04:23 - Orders/Labs/Meds Orders: Active Orders 24 hr Category Date Time Status RT Aerosol Therapy [RC] ASDIRECTED Care 04/12/20 04:32 Active Meds: Medications Discontinued Medications Generic Name Dose Route Start Last Admin Trade Name Freq PRN Reason Stop Dose Admin Albuterol/Ipratropium 3 ml 04/12/20 04:32 04/12/20 04:40 Duoneb 3.0-0.5 Mg/3 Ml NEB 04/12/20 04:33 3 ml ONETIME ONE Administration Prednisone 20 mg 04/12/20 04:32 04/12/20 04:39 Prednisone PO 04/12/20 04:33 20 mg ONETIME ONE Administration Departure - Departure Time of Disposition: 04:34 Disposition: Home, Self-Care 01 Condition: Good Clinical Impression: Exacerbation of asthma Qualifiers: Asthma severity: mild Asthma persistence: intermittent Qualified Code(s): J45.21 - Mild intermittent asthma with (acute) exacerbation - Discharge Information Forms: ED Department Discharge Additional Instructions: 1) don't sleep flat at night 2) drink lots of liquids 3) follow up at clinic rx given; rubio salgado Sepsis Event Note (ED) - Evaluation Sepsis Screening Result: No Definite Risk - Focused Exam Vital Signs: Vital Signs Temp Pulse Resp BP Pulse Ox 04/12/20 04:23 35.6 C L 76 22 H 147/72 H 93 L - My Orders Last 24 Hours: My Active Orders 04/12/20 04:32 RT Aerosol Therapy [RC] ASDIRECTED - Assessment/Plan Last 24 Hours: My Active Orders 04/12/20 04:32 RT Aerosol Therapy [RC] ASDIRECTED
== END 2020-04-12 04:50 | disposition home or self-care (01) ==
LOC: DL.ED 04:19
DX: J45.21 Mild intermittent asthma with (acute) exacerbation (principal); M19.90 Unspecified osteoarthritis, unspecified site; I13.2 Hypertensive heart and chronic kidney disease with heart failure and with stage 5 chronic kidney disease, or end stage renal disease; E11.22 Type 2 diabetes mellitus with diabetic chronic kidney disease; N18.4 Chronic kidney disease, stage 4 (severe); I50.9 Heart failure, unspecified; E78.00 Pure hypercholesterolemia, unspecified; Z79.82 Long term (current) use of aspirin; Z79.899 Other long term (current) drug therapy; Z79.4 Long term (current) use of insulin; Z88.1 Allergy status to other antibiotic agents; Z88.5 Allergy status to narcotic agent; Z88.8 Allergy status to other drugs, medicaments and biological substances; Z91.018 Allergy to other foods
CPT/HCPCS: 94640; 99283; 99284; J7512; J7620-GY

== ENCOUNTER 2020-04-19 11:03 | Emergency (ER) | payer MEDICARE, MEDICAID ==
[2020-04-19 11:25] VITALS: BP 141/67; PULSE 60
--- NOTE | 2020-04-19 11:26 | EDM.PDOC ---
ED HPI GENERAL MEDICAL PROBLEM - General Chief Complaint: Cardiovascular Problem Stated Complaint: swollen legs hard time breathing 'has heart probs' Time Seen by Provider: 04/19/20 11:26 Source of Information: Reports: Patient, Old Records, RN, RN Notes Reviewed History Limitations: Reports: No Limitations - History of Present Illness INITIAL COMMENTS - FREE TEXT/NARRATIVE: Pt presents to ER from home by POV with c/o progressively worsening shortness of breath for the last 3 days. She has noticed swelling in her lower legs for the last couple and orthopnea for about 1 or 2 weeks. The leg edema as increased quite a bit in past 3 days,and her breathing is worse when she tries to lay down, cannot sleep flat on her back she has to prop herself up. Denies cough, hemoptysis, fever, chest pain, or palpitations. She admits to fatigue and low energy. Pt states she has CHF and she was on a "water pill" but isn't sure if she is still taking it or not. Records indicate she sees Dr. Soria at [facility], and Dr. Estrada for nephrology. Pt states she doesn't know if she still has to see nephrology, because she hasn't been there lately and no one from nephrology has called and told her to come. Onset: Gradual Duration: Week(s): (2), Constant, Getting Worse Location: Reports: Chest, Generalized Quality: 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 (Denies pain) Severity: Moderate Improves with: Reports: Rest Worsens with: 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 (Exertion, and supine position) Associated Symptoms: Reports: No Other Symptoms Treatments INTRANET DEVELOPER: 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 (see below) - Related Data Allergies Allergy/AdvReac Type Severity Reaction Status Date / Time lisinopril Allergy Other Verified 04/19/20 11:18 neomycin sulfate Allergy Swelling Verified 04/19/20 11:18 [From Neosporin ([id number])] Opioids - Morphine Analogues Allergy Rash Verified 04/19/20 11:18 polymyxin B Allergy Swelling Verified 04/19/20 11:18 [From Neosporin ([id number])] kiwi Allergy Swollen Uncoded 04/19/20 11:18 Eyes Home Meds: Home Meds Insulin Detemir [Levemir Flextouch] 40 units SQ BEDTIME 09/27/15 [History] glyBURIDE [Micronase] 5 mg PO BID 09/27/15 [History] Nitroglycerin [IJP: Nitroglycerin] 0.4 mg SL ASDIRECTED 12/17/16 [History] Aspirin [Halfprin] 81 mg PO DAILY 08/28/17 [History] Dextran 70/Hypromellose [Artificial Tears] 1 drop EYEBOTH BEDTIME PRN 08/28/17 [History] Albuterol Sulfate [Proair Hfa] 2 puff INH ASDIRECTED PRN 01/28/18 [History] amLODIPine Besylate [Amlodipine Besylate] 5 mg PO DAILY 01/28/18 [History] carvediloL [Coreg] 25 mg PO BIDMEALS 01/28/18 [History] Loratadine 10 mg PO ASDIRECTED PRN 07/30/19 [History] Meclizine [Antivert] 25 mg PO Q6H PRN 07/30/19 [History] Montelukast [Singulair] 10 mg PO ASDIRECTED PRN 07/30/19 [History] Nitroglycerin 6.5 mg PO BID 07/30/19 [History] calcitrioL [Rocaltrol] 0.5 mcg PO DAILY 07/30/19 [History] metOLazone [Metolazone] 2.5 mg PO ASDIRECTED 07/30/19 [History] atorvaSTATin [Lipitor] 40 mg PO DAILY 11/23/19 [History] Past Medical History HEENT History: Reports: Impaired Vision Other HEENT History: wears glasses Cardiovascular History: Reports: Heart Failure, High Cholesterol, Hypertension Respiratory History: Reports: Asthma Gastrointestinal History: Reports: None Genitourinary History: Reports: Chronic Renal Insuffiency Other Genitourinary History: diabetis. 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 BOLT LABELER History: hysterectomy Musculoskeletal History: Reports: Arthritis Neurological History: Reports: None Psychiatric History: Reports: None Endocrine/Metabolic History: Reports: Diabetes, Type II Hematologic History: Reports: None Immunologic History: Reports: None Oncologic (Cancer) History: Reports: Breast Dermatologic History: Reports: None - Infectious Disease History Infectious Disease History: Reports: Mumps - Past Surgical History Head Surgeries/Procedures: Reports: None HEENT Surgical History: Reports: Cataract Surgery Cardiovascular Surgical History: 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 (See Below) Other Cardiovascular Surgeries/Procedures: angiogram Respiratory Surgical History: Reports: None GI Surgical History: Reports: Appendectomy, Cholecystectomy, Colonoscopy Female Surgical History: Reports: Cystoscopy, Hysterectomy Musculoskeletal Surgical History: Reports: None Oncologic Surgical History: Reports: Lumpectomy Social & Family History - Family History Family Medical History: Noncontributory - Caffeine Use Caffeine Use: Reports: Coffee Other Caffeine Use: 3 cups daily - Living Situation & Occupation Living situation: Reports: with Family 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 ED EXAM, GENERAL - Physical Exam Exam: See Below Exam Limited By: No Limitations General Appearance: Alert, WD/WN, No Apparent Distress Eye Exam: Bilateral Eye: Normal Inspection Nose: Normal Inspection Throat/Mouth: Normal Inspection, Normal Lips, Normal Voice, No Airway Compromise Head: Atraumatic, Normocephalic Neck: Normal Inspection, Supple, Non-Tender, Full Range of Motion Respiratory/Chest: No Respiratory Distress, No Accessory Muscle Use, Chest Non- Tender, Decreased Breath Sounds, Crackles, Rales. No: Rhonchi, Wheezing, Stridor Cardiovascular: Regular Rate, Rhythm, Bradycardia, Extra Beats GI/Abdominal: Normal Bowel Sounds, Soft, Non-Tender, No Organomegaly, No Distention. No: Guarding, Rigid, Rebound (Female) Exam: Deferred Rectal (Female) Exam: Deferred Back Exam: Normal Inspection Extremities: Normal Range of Motion, Non-Tender, Normal Capillary Refill, Pedal Edema (2+ pitting edema to B/L knees). No: Joint Swelling, Reginald's Sign, Increased Warmth, Redness Neurological: Alert, Oriented, CN II-XII Intact, Normal Cognition, No Motor/Sensory Deficits Psychiatric: Normal Affect, Normal Mood Skin Exam: Warm, Dry, Intact, Normal Color, No Rash EKG INTERPRETATION EKG Date: 04/19/20 Time: 11:36 Rhythm: Other (SR with PVCs) Rate (Beats/Min): 61 [place]: LAD-Left [place] Deviation P-Wave: Present QRS: RBBB (and LAFB) ST-T: Other (LVH with repol. abnormality) QT: Normal Comparison: No Change Course - Vital Signs Last Recorded V/S: Last Vital Signs Temp 96.1 F L 04/19/20 11:22 Pulse 60 04/19/20 11:22 Resp 18 04/19/20 11:22 BP 141/67 H 04/19/20 11:22 Pulse Ox 97 04/19/20 11:22 - Orders/Labs/Meds Orders: Active Orders 24 hr Category Date Time Status EKG 12 Lead [EKG Documentation Completion] [RC] STAT Care 04/19/20 11:30 Active Peripheral IV Care [RC] . DIRECTED Care 04/19/20 11:30 Active Sodium Chloride 0.9% [Saline Flush] Med 04/19/20 11:29 Active 10 ml FLUSH ASDIRECTED PRN Peripheral IV Insertion Adult [OM.PC] Stat Oth 04/19/20 11:30 Ordered Medication Orders Sodium Chloride (Saline Flush) 10 ml FLUSH ASDIRECTED PRN PRN Reason: Keep Vein Open Last Admin: 04/19/20 11:42 Dose: 10 ml Documented by: GEE Labs: Laboratory Tests 04/19/20 04/19/20 Range/Units 11:35 11:35 WBC 10.3 H (5.0-10.0) 10^3/uL RBC 3.71 L (4.2-5.4) 10^6/uL Hgb 11.4 L (12.0-16.0) g/dL Hct 33.6 L (37.0-47.0) % MCV 90.6 (80-100) fL MCH 30.7 (27.0-34.0) pg MCHC 33.9 (33.0-35.0) g/dL Plt Count 217 (150-450) 10^3/uL Neut % (Auto) 82.8 H (42.2-75.2) % Lymph % (Auto) 8.5 L (20.5-50.1) % [place] % (Auto) 6.2 (2-8) % Eos % (Auto) 2.3 (1.0-3.0) % Baso % (Auto) 0.2 (0.0-1.0) % Sodium 133 L (136-145) mmol/L Potassium 4.0 (3.5-5.1) mmol/L Chloride 99 (98-107) mmol/L Carbon Dioxide 24 (21-32) mmol/L Anion Gap 14.0 H (7-13) mEq/L BUN 67 H (7-18) mg/dL Creatinine 2.30 H (0.55-1.02) mg/dL Est Cr Clr Drug Dosing 15.65 mL/min Estimated GFR (MDRD) 21 BUN/Creatinine Ratio 29.1 (No establ ref range) Glucose 78 (74-99) mg/dL Calcium 8.6 (8.5-10.1) mg/dL Total Bilirubin 0.5 (0.2-1.0) mg/dL AST 23 (15-37) U/L ALT 78 H (14-59) U/L Alkaline Phosphatase 114 (46-116) U/L Troponin I 0.029 (0.000-0.056) ng/mL B-Natriuretic Peptide 1310 H (0-100) pg/ml Total Protein 5.8 L (6.4-8.2) g/dL Albumin 2.8 L (3.4-5.0) g/dL Globulin 3.0 Albumin/Globulin Ratio 0.93 Meds: Medications Generic Name Dose Route Start Last Admin Trade Name Freq PRN Reason Stop Dose Admin Sodium Chloride 10 ml 04/19/20 11:29 04/19/20 11:42 Saline Flush FLUSH 10 ml ASDIRECTED PRN Administration Keep Vein Open Discontinued Medications Generic Name Dose Route Start Last Admin Trade Name Freq PRN Reason Stop Dose Admin Furosemide 40 mg 04/19/20 11:38 04/19/20 11:42 Lasix IVPUSH 04/19/20 11:39 40 mg NOW ONE Administration Furosemide 40 mg 04/19/20 12:28 Lasix IVPUSH 04/19/20 12:29 NOW ONE - Radiology Interpretation Free Text/Narrative:: [facility] Final Radiology Report Call: [phone] assistance Online chat: [email or web address] Name: KALA LOVE Age: 75Years F Date: 04/19/2020 SSN: -- : [id number] Study: CR CHEST 1V FRONTAL Requesting Physician: KATY JARA Images: 1 Addl Studies: Provided Clinical History: shortness of breath, orthopnea, edema, Hx CHF Contrast: Contrast Medium: Contrast Amount: Contrast Method: Page 1 of 2 PROCEDURE INFORMATION: Exam: XR Chest, 1 View Exam date and time: 04/19/2020 11:46 AM Age: 75 years old Clinical indication: Shortness of breath; Additional info: Shortness of breath, orthopnea, edema, HX chf TECHNIQUE: Imaging protocol: XR of the chest Views: 1 view. COMPARISON: CR Chest 1V Frontal 07/30/2019 5:40 AM FINDINGS: Lungs: Lung volumes are low. This causes crowding of pulmonary vascular and interstitial markings and also results in mild bibasilar atelectasis. Pleural space: Small bilateral pleural effusions are present. There is no pneumothorax. Heart/Mediastinum: The heart is moderately enlarged. Bones/joints: Unremarkable. IMPRESSION: 1. Low lung volumes somewhat limiting evaluation. No definite pulmonary edema or pneumonia present. 2. Cardiomegaly. 3. Small bilateral pleural effusions. Thank you for allowing us to participate in the care of your patient. Dictated and Authenticated by: Zaid Juan MD LOHNES, VIVIAN | Final Radiology Report CONFIDENTIALITY STATEMENT This report is intended only for use by the referring physician, and only in accordance with law. If you received this in error, call [phone]. Page 2 of 2 04/19/2020 11:54 AM Central Time ([place] & [place]) Departure - Departure Time of Disposition: 12:34 Disposition: Home, Self-Care 01 Condition: Fair Clinical Impression: CKD (chronic kidney disease) stage 4, GFR 15-29 ml/min Acute on chronic congestive heart failure Qualifiers: Heart failure type: unspecified Qualified Code(s): I50.9 - Heart failure, unspecified Instructions: Heart Failure, Self Care, [id number], Chronic Kidney Disease, Adult, [id number] Forms: ED Department Discharge Additional Instructions: Rx: Bumex 1mg Take all of your regular medications as prescribed. Call tomorrow to schedule a follow up appointment with Dr. Soria at [facility]. Call Nephrology clinic to see when you are due to see Dr. Estrada again to monitor your kidney function. Sepsis Event Note (ED) - Evaluation Sepsis Screening Result: No Definite Risk - Focused Exam Vital Signs: Vital Signs Temp Pulse Resp BP Pulse Ox 04/19/20 11:22 96.1 F L 60 18 141/67 H 97 - My Orders Last 24 Hours: My Active Orders 04/19/20 11:29 Sodium Chloride 0.9% [Saline Flush] 10 ml FLUSH ASDIRECTED PRN 04/19/20 11:30 EKG 12 Lead [EKG Documentation Completion] [RC] STAT Peripheral IV Care [RC] . DIRECTED Peripheral IV Insertion Adult [OM.PC] Stat - Assessment/Plan Last 24 Hours: My Active Orders 04/19/20 11:29 Sodium Chloride 0.9% [Saline Flush] 10 ml FLUSH ASDIRECTED PRN 04/19/20 11:30 EKG 12 Lead [EKG Documentation Completion] [RC] STAT Peripheral IV Care [RC] . DIRECTED Peripheral IV Insertion Adult [OM.PC] Stat
[2020-04-19] MEDS ORDERED: Sodium Chloride 0.9% 10 ML Syringe FLUSH PRN (11:29)
[2020-04-19] MEDS ORDERED: Furosemide 40 MG/4 ML VIAL IVPUSH ONE ×2 (11:38→12:28)
--- NOTE | 2020-04-19 11:55 | CR ---
PROCEDURE INFORMATION: Exam: XR Chest, 1 View Exam date and time: 04/19/2020 11:46 AM Age: 75 years old Clinical indication: Shortness of breath; Additional info: Shortness of breath, orthopnea, edema, HX chf TECHNIQUE: Imaging protocol: XR of the chest Views: 1 view. COMPARISON: CR Chest 1V Frontal 07/30/2019 5:40 AM FINDINGS: Lungs: Lung volumes are low. This causes crowding of pulmonary vascular and interstitial markings and also results in mild bibasilar atelectasis. Pleural space: Small bilateral pleural effusions are present. There is no pneumothorax. Heart/Mediastinum: The heart is moderately enlarged. Bones/joints: Unremarkable. IMPRESSION: 1. Low lung volumes somewhat limiting evaluation. No definite pulmonary edema or pneumonia present. 2. Cardiomegaly. 3. Small bilateral pleural effusions.
== END 2020-04-19 12:53 | disposition home or self-care (01) ==
LOC: DL.ED 11:03
DX: I13.0 Hypertensive heart and chronic kidney disease with heart failure and stage 1 through stage 4 chronic kidney disease, or unspecified chronic kidney disease (principal); E11.22 Type 2 diabetes mellitus with diabetic chronic kidney disease; N18.4 Chronic kidney disease, stage 4 (severe); I50.9 Heart failure, unspecified; J45.909 Unspecified asthma, uncomplicated; M19.90 Unspecified osteoarthritis, unspecified site; E78.00 Pure hypercholesterolemia, unspecified; Z79.84 Long term (current) use of oral hypoglycemic drugs; Z79.899 Other long term (current) drug therapy; Z79.82 Long term (current) use of aspirin; Z91.018 Allergy to other foods; Z88.6 Allergy status to analgesic agent; Z88.8 Allergy status to other drugs, medicaments and biological substances; Z88.5 Allergy status to narcotic agent; Z88.1 Allergy status to other antibiotic agents
CPT/HCPCS: 36415; 71045; 80053; 83880; 84484; 85025; 93005; 96374; 96376; 99285; J1940; 93010; 99284

== ENCOUNTER 2020-05-05 05:43 | Emergency (ER) | payer MEDICARE, MEDICAID ==
[2020-05-05 05:50] VITALS: BP 132/78; PULSE 63
--- NOTE | 2020-05-05 06:07 | EDM.PDOC ---
<Silvia Watson - Last Filed: 05/05/20 06:04> ED HPI GENERAL MEDICAL PROBLEM - General Chief Complaint: Diabetic Complaint Stated Complaint: AMBULANCE Time Seen by Provider: 05/05/20 06:00 Source of Information: Reports: Patient History Limitations: Reports: No Limitations - History of Present Illness INITIAL COMMENTS - FREE TEXT/NARRATIVE: ED via [facility] with report of low blood sugar this am. Nausea at time none at present. Denes pain fever, chills or urinary c/o. No chest pain. Reports swelling improving. "Down a bit every day". Does not weigh daily. Was scheduled to have clinic appointment this am. No recent insulin dose changes. Ate normal yesterday. Does not typically eat HS snack. - Related Data Allergies Allergy/AdvReac Type Severity Reaction Status Date / Time lisinopril Allergy Other Verified 04/19/20 11:18 neomycin sulfate Allergy Swelling Verified 04/19/20 11:18 [From Neosporin ([id number])] Opioids - Morphine Analogues Allergy Rash Verified 04/19/20 11:18 polymyxin B Allergy Swelling Verified 04/19/20 11:18 [From Neosporin ([id number])] kiwi Allergy Swollen Uncoded 04/19/20 11:18 Eyes Home Meds: Home Meds Insulin Detemir [Levemir Flextouch] 40 units SQ BEDTIME 09/27/15 [History] glyBURIDE [Micronase] 5 mg PO BID 09/27/15 [History] Nitroglycerin [IJP: Nitroglycerin] 0.4 mg SL ASDIRECTED 12/17/16 [History] Aspirin [Halfprin] 81 mg PO DAILY 08/28/17 [History] Dextran 70/Hypromellose [Artificial Tears] 1 drop EYEBOTH BEDTIME PRN 08/28/17 [History] Albuterol Sulfate [Proair Hfa] 2 puff INH ASDIRECTED PRN 01/28/18 [History] amLODIPine Besylate [Amlodipine Besylate] 5 mg PO DAILY 01/28/18 [History] carvediloL [Coreg] 25 mg PO BIDMEALS 01/28/18 [History] Loratadine 10 mg PO ASDIRECTED PRN 07/30/19 [History] Meclizine [Antivert] 25 mg PO Q6H PRN 07/30/19 [History] Montelukast [Singulair] 10 mg PO ASDIRECTED PRN 07/30/19 [History] Nitroglycerin 6.5 mg PO BID 07/30/19 [History] calcitrioL [Rocaltrol] 0.5 mcg PO DAILY 07/30/19 [History] metOLazone [Metolazone] 2.5 mg PO ASDIRECTED 07/30/19 [History] atorvaSTATin [Lipitor] 40 mg PO DAILY 11/23/19 [History] Past Medical History HEENT History: Reports: Impaired Vision Other HEENT History: wears glasses Cardiovascular History: Reports: Heart Failure, High Cholesterol, Hypertension Respiratory History: Reports: Asthma Gastrointestinal History: Reports: None Genitourinary History: Reports: Chronic Renal Insuffiency Other Genitourinary History: STAGE IV CKD ALLIED HEALTH PROFESSIONAL 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: 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 ALLIED HEALTH PROFESSIONAL History: hysterectomy Musculoskeletal History: Reports: Arthritis Neurological History: Reports: None Psychiatric History: Reports: None Endocrine/Metabolic History: Reports: Diabetes, Type II Hematologic History: Reports: None Immunologic History: Reports: None Oncologic (Cancer) History: Reports: Breast Dermatologic History: Reports: None - Infectious Disease History Infectious Disease History: Reports: Mumps - Past Surgical History Head Surgeries/Procedures: Reports: None HEENT Surgical History: Reports: Cataract Surgery Cardiovascular Surgical History: 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 (See Below) Other Cardiovascular Surgeries/Procedures: angiogram Respiratory Surgical History: Reports: None GI Surgical History: Reports: Appendectomy, Cholecystectomy, Colonoscopy Female Surgical History: Reports: Cystoscopy, Hysterectomy Musculoskeletal Surgical History: Reports: None Oncologic Surgical History: Reports: Lumpectomy Social & Family History - Family History Family Medical History: Noncontributory - Tobacco Use Tobacco Use Status *Q: Never Tobacco User Second Hand Smoke Exposure: No - Caffeine Use Caffeine Use: Reports: Coffee Other Caffeine Use: 3 cups daily - Recreational Drug Use Recreational Drug Use: No - Living Situation & Occupation Living situation: Reports: with Family 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 ED EXAM GENERAL NO PERIP PULSE - Physical Exam Exam: See Below Exam Limited By: No Limitations General Appearance: Alert, No Apparent Distress Eye Exam: Bilateral Eye: EOMI Ears: Normal External Exam, Hearing Grossly Normal Nose: Normal Inspection Throat/Mouth: Normal Inspection Head: Atraumatic, Normocephalic Neck: Normal Inspection Respiratory/Chest: No Respiratory Distress Cardiovascular: Irregularly Irregular GI/Abdominal: Soft Extremities: Pedal Edema Neurological: Alert, Oriented, Normal Cognition Psychiatric: Flat Affect Skin Exam: Warm, Dry, Intact Departure - Departure Disposition: Home, Self-Care 01 Clinical Impression: Hypoglycemia associated with diabetes - Discharge Information Instructions: Type 2 Diabetes Mellitus, Self Care, Adult, [id number] Forms: ED Department Discharge Additional Instructions: Keep appointment with primary care provider tomorrow; discuss blood sugar management. Sepsis Event Note (ED) - Evaluation Sepsis Screening Result: No Definite Risk <Gale Alves Suzette - Last Filed: 05/05/20 08:01> Course - Vital Signs Last Recorded V/S: Last Vital Signs Temp 96.8 F L 05/05/20 05:45 Pulse 63 05/05/20 05:45 Resp 16 05/05/20 05:45 BP 132/78 05/05/20 05:45 Pulse Ox 96 05/05/20 05:45 - Orders/Labs/Meds Orders: Active Orders 24 hr Category Date Time Status Blood Glucose Check, Bedside [RC] ONETIME Care 05/05/20 05:49 Active Blood Glucose Check, Bedside [RC] ONETIME Care 05/05/20 06:40 Active EKG 12 Lead [EKG Documentation Completion] [RC] URGENT Care 05/05/20 05:38 Active UA RFX GEOVANNA AND CULT IF INDIC [URIN] Routine Lab 05/05/20 07:20 Received Labs: Laboratory Tests 05/05/20 05/05/20 05/05/20 Range/Units 05:57 06:05 06:05 WBC 8.3 (5.0-10.0) 10^3/uL RBC 3.73 L (4.2-5.4) 10^6/uL Hgb 11.3 L (12.0-16.0) g/dL Hct 35.5 L (37.0-47.0) % MCV 95.2 D (80-100) fL MCH 30.3 (27.0-34.0) pg MCHC 31.8 L (33.0-35.0) g/dL Plt Count 171 (150-450) 10^3/uL Neut % (Auto) 86.4 H (42.2-75.2) % Lymph % (Auto) 6.3 L (20.5-50.1) % [place] % (Auto) 5.8 (2-8) % Eos % (Auto) 1.4 (1.0-3.0) % Baso % (Auto) 0.1 (0.0-1.0) % PT (9.0-12.0) SEC INR (0.9-1.2) Sodium 140 (136-145) mmol/L Potassium 3.3 L (3.5-5.1) mmol/L Chloride 103 (98-107) mmol/L Carbon Dioxide 29 (21-32) mmol/L Anion Gap 11.3 (7-13) mEq/L BUN 50 H (7-18) mg/dL Creatinine 2.48 H (0.55-1.02) mg/dL Est Cr Clr Drug Dosing 14.51 mL/min Estimated GFR (MDRD) 19 BUN/Creatinine Ratio 20.2 (No establ ref range) Glucose 99 (74-99) mg/dL POC Glucose 99 (83-110) mg/dl Lactic Acid (0.4-2.0) mmol/L Calcium 9.8 (8.5-10.1) mg/dL Total Bilirubin 0.6 (0.2-1.0) mg/dL AST 19 (15-37) U/L ALT 24 (14-59) U/L Alkaline Phosphatase 104 (46-116) U/L Troponin I < 0.017 (0.000-0.056) ng/mL B-Natriuretic Peptide 1320 H (0-100) pg/ml Total Protein 5.9 L (6.4-8.2) g/dL Albumin 2.7 L (3.4-5.0) g/dL Globulin 3.2 Albumin/Globulin Ratio 0.84 Amylase 9 L (25-115) U/L Lipase 51 L (73-393) U/L 05/05/20 05/05/20 05/05/20 Range/Units 06:05 06:05 06:42 WBC (5.0-10.0) 10^3/uL RBC (4.2-5.4) 10^6/uL Hgb (12.0-16.0) g/dL Hct (37.0-47.0) % MCV (80-100) fL MCH (27.0-34.0) pg MCHC (33.0-35.0) g/dL Plt Count (150-450) 10^3/uL Neut % (Auto) (42.2-75.2) % Lymph % (Auto) (20.5-50.1) % [place] % (Auto) (2-8) % Eos % (Auto) (1.0-3.0) % Baso % (Auto) (0.0-1.0) % PT 11.0 (9.0-12.0) SEC INR 1.2 (0.9-1.2) Sodium (136-145) mmol/L Potassium (3.5-5.1) mmol/L Chloride (98-107) mmol/L Carbon Dioxide (21-32) mmol/L Anion Gap (7-13) mEq/L BUN (7-18) mg/dL Creatinine (0.55-1.02) mg/dL Est Cr Clr Drug Dosing mL/min Estimated GFR (MDRD) BUN/Creatinine Ratio (No establ ref range) Glucose (74-99) mg/dL POC Glucose 171 H (83-110) mg/dl Lactic Acid 1.0 (0.4-2.0) mmol/L Calcium (8.5-10.1) mg/dL Total Bilirubin (0.2-1.0) mg/dL AST (15-37) U/L ALT (14-59) U/L Alkaline Phosphatase (46-116) U/L Troponin I (0.000-0.056) ng/mL B-Natriuretic Peptide (0-100) pg/ml Total Protein (6.4-8.2) g/dL Albumin (3.4-5.0) g/dL Globulin Albumin/Globulin Ratio Amylase (25-115) U/L Lipase (73-393) U/L - Re-Assessments/Exams Free Text/Narrative Re-Assessment/Exam: 05/05/20 07:51 Follow-up with primary care provider, as previously scheduled, tomorrow 05/05/20 for blood sugar management. Departure - Departure Time of Disposition: 07:59 - Discharge Information *PRESCRIPTION DRUG MONITORING PROGRAM REVIEWED*: Not Applicable *COPY OF PRESCRIPTION DRUG MONITORING REPORT IN PATIENT KARYN: Not Applicable Sepsis Event Note (ED) - Focused Exam Vital Signs: Vital Signs Temp Pulse Resp BP Pulse Ox 05/05/20 05:45 96.8 F L 63 16 132/78 96
--- NOTE | 2020-05-05 06:30 | CR ---
PROCEDURE INFORMATION: Exam: XR Chest, 1 View Exam date and time: 05/05/2020 6:13 AM Age: 75 years old Clinical indication: Shortness of breath; Additional info: SOB TECHNIQUE: Imaging protocol: XR of the chest Views: 1 view. COMPARISON: CR Chest 1V Frontal 04/19/2020 11:46 AM FINDINGS: Lungs: Interval increase in the pulmonary venous hypertension and appearance of perihilar interstitial marking prominence. Questionable developing Nick B lines. Interval greater suggestion of slight atelectasis in the lung bases. Still no definite consolidation. Pleural space: Small pleural effusions still likely. Still no pneumothorax. Heart/Mediastinum: Continued cardiomegaly. Vasculature: Continued aortic elongation. Bones/joints: Continued suggestion of a large geode in the right humeral head. No visible acute fracture. Soft tissues: Continued surgical clips in the left breast. IMPRESSION: 1. Interval worsening of the pulmonary edema. Continued cardiomegaly and small pleural effusions, therefore congestive failure still suspected. 2. Interval greater suggestion of slight atelectasis in the lung bases. Other findings detailed above.
[2020-05-05 06:32] LABS: ANION GAP 11.3 mEq/L (7-13); CHLORIDE,CL 103 mmol/L (98-107); SODIUM,NA 140 mmol/L (136-145)
== END 2020-05-05 08:08 | disposition home or self-care (01) ==
LOC: DL.ED 05:43
DX: E11.649 Type 2 diabetes mellitus with hypoglycemia without coma (principal); I13.0 Hypertensive heart and chronic kidney disease with heart failure and stage 1 through stage 4 chronic kidney disease, or unspecified chronic kidney disease; E11.22 Type 2 diabetes mellitus with diabetic chronic kidney disease; N18.4 Chronic kidney disease, stage 4 (severe); I50.9 Heart failure, unspecified; E78.00 Pure hypercholesterolemia, unspecified; J45.909 Unspecified asthma, uncomplicated; M19.90 Unspecified osteoarthritis, unspecified site; Z88.8 Allergy status to other drugs, medicaments and biological substances; Z88.1 Allergy status to other antibiotic agents; Z88.5 Allergy status to narcotic agent; Z91.018 Allergy to other foods; Z79.4 Long term (current) use of insulin; Z79.82 Long term (current) use of aspirin; Z79.899 Other long term (current) drug therapy
CPT/HCPCS: 36415; 71045; 80053; 81001; 82150; 82962; 83605; 83690; 83880; 84484; 85025; 85610; 87086; 93005; 99284-25

== ENCOUNTER 2020-07-02 13:39 | Emergency (ER) | payer MEDICARE, MEDICAID ==
[2020-07-02 13:50] VITALS: BP 129/48; PULSE 64
--- NOTE | 2020-07-02 14:28 | EDM.PDOC ---
ED HPI GENERAL MEDICAL PROBLEM - General Chief Complaint: Cardiovascular Problem Time Seen by Provider: 07/02/20 14:00 Source of Information: Reports: Patient History Limitations: Reports: No Limitations - History of Present Illness INITIAL COMMENTS - FREE TEXT/NARRATIVE: This 75 yo female patient was brought to the ED by [facility] due to lower extremity edema and increased lower extremity pain. The patient reports she has been seeing Dr. Bhakta on . The patient reports she did have an appointment today, but couldn't get to her appointment this morning due to difficulties ambulating. The patient reports she does have a referral to see a specialist on 07/07/20. The patient reports she was started on an antibiotic, but it has not helped her. The patient reports she has been taking a water pill, but does not remember her medications. Onset: Unknown/Unsure Duration: Week(s):, Constant, Getting Worse Location: Reports: Lower Extremity, Left, Lower Extremity, Right Quality: Reports: Ache, Dull Severity: Moderate Improves with: Reports: None Worsens with: Reports: None Context: 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 Left Lower Leg Pain Score (Numeric/FACES): 8 - Related Data Allergies Allergy/AdvReac Type Severity Reaction Status Date / Time lisinopril Allergy Other Verified 07/02/20 13:50 neomycin sulfate Allergy Swelling Verified 07/02/20 13:50 [From Neosporin ([id number])] Opioids - Morphine Analogues Allergy Rash Verified 07/02/20 13:50 polymyxin B Allergy Swelling Verified 07/02/20 13:50 [From Neosporin ([id number])] kiwi Allergy Swollen Uncoded 07/02/20 13:50 Eyes Home Meds: Home Meds Insulin Detemir [Levemir Flextouch] 40 units SQ BEDTIME 09/27/15 [History] glyBURIDE [Micronase] 5 mg PO BID 09/27/15 [History] Nitroglycerin [IJP: Nitroglycerin] 0.4 mg SL ASDIRECTED 12/17/16 [History] Aspirin [Halfprin] 81 mg PO DAILY 08/28/17 [History] Dextran 70/Hypromellose [Artificial Tears] 1 drop EYEBOTH BEDTIME PRN 08/28/17 [History] Albuterol Sulfate [Proair Hfa] 2 puff INH ASDIRECTED PRN 01/28/18 [History] amLODIPine Besylate [Amlodipine Besylate] 5 mg PO DAILY 01/28/18 [History] carvediloL [Coreg] 25 mg PO BIDMEALS 01/28/18 [History] Loratadine 10 mg PO ASDIRECTED PRN 07/30/19 [History] Meclizine [Antivert] 25 mg PO Q6H PRN 07/30/19 [History] Montelukast [Singulair] 10 mg PO DAILY 07/30/19 [History] Nitroglycerin 6.5 mg PO BID 07/30/19 [History] calcitrioL [Rocaltrol] 0.5 mcg PO DAILY 07/30/19 [History] metOLazone [Metolazone] 2.5 mg PO ASDIRECTED 07/30/19 [History] Past Medical History HEENT History: Reports: Impaired Vision Other HEENT History: wears glasses Cardiovascular History: Reports: Heart Failure, High Cholesterol, Hypertension Respiratory History: Reports: Asthma Gastrointestinal History: Reports: None Genitourinary History: Reports: Chronic Renal Insuffiency Other Genitourinary History: STAGE IV CKD MANAGER MEAT History: 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 MANAGER MEAT History: hysterectomy Musculoskeletal History: Reports: Arthritis Neurological History: Reports: None Psychiatric History: Reports: None Endocrine/Metabolic History: Reports: Diabetes, Type II Hematologic History: Reports: None Immunologic History: Reports: None Oncologic (Cancer) History: Reports: Breast Dermatologic History: Reports: None - Infectious Disease History Infectious Disease History: Reports: Chicken Pox, Mumps - Past Surgical History Head Surgeries/Procedures: Reports: None HEENT Surgical History: Reports: Cataract Surgery Cardiovascular Surgical History: 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 (See Below) Other Cardiovascular Surgeries/Procedures: angiogram Respiratory Surgical History: Reports: None GI Surgical History: Reports: Appendectomy, Cholecystectomy, Colonoscopy Female Surgical History: Reports: Cystoscopy, Hysterectomy Other Female Surgeries/Procedures: had a wedge l) BREAST Endocrine Surgical History: Reports: None Musculoskeletal Surgical History: Reports: None Oncologic Surgical History: Reports: Lumpectomy Other Oncologic Surgeries/Procedures: radiation and chemo Social & Family History - Family History Family Medical History: No Pertinent Family History - Tobacco Use Tobacco Use Status *Q: Never Tobacco User Second Hand Smoke Exposure: No - Caffeine Use Caffeine Use: Reports: Coffee Other Caffeine Use: 3 cups daily - Recreational Drug Use Recreational Drug Use: No - Living Situation & Occupation Living situation: Reports: with Family 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 ED EXAM, GENERAL - Physical Exam Exam: See Below Exam Limited By: No Limitations General Appearance: Alert, WD/WN, Moderate Distress Eye Exam: Bilateral Eye: EOMI, Normal Inspection, PERRL Ears: Normal External Exam, Normal Canal, Hearing Grossly Normal, Normal TMs Nose: Normal Inspection, Normal Mucosa, No Blood Throat/Mouth: Normal Inspection, Normal Lips, Normal Teeth, Normal Gums, Normal Oropharynx, Normal Voice, No Airway Compromise Head: Atraumatic, Normocephalic Neck: Normal Inspection, Supple, Non-Tender, Full Range of Motion Respiratory/Chest: No Respiratory Distress, Lungs Clear, Normal Breath Sounds, No Accessory Muscle Use, Chest Non-Tender Cardiovascular: Normal Peripheral Pulses, Regular Rate, Rhythm, No Edema, No Gallop, No JVD, No Murmur, No Rub GI/Abdominal: Normal Bowel Sounds, Soft, Non-Tender, No Organomegaly, No Distention, No Abnormal Bruit, No Mass (Female) Exam: Deferred Rectal (Female) Exam: Deferred Back Exam: Normal Inspection, Full Range of Motion, NT Extremities: Pedal Edema, Redness Neurological: Alert, Oriented, CN II-XII Intact, Normal Cognition, Normal Gait, Normal Reflexes, No Motor/Sensory Deficits Psychiatric: Normal Affect, Normal Mood Skin Exam: Warm, Dry, Intact, Normal Color, No Rash Lymphatic: No Adenopathy Course - Vital Signs Last Recorded V/S: Last Vital Signs Temp 36.3 C 07/02/20 13:39 Pulse 64 07/02/20 13:39 Resp 18 07/02/20 13:39 BP 129/48 L 07/02/20 13:39 Pulse Ox 93 L 07/02/20 13:39 - Orders/Labs/Meds Orders: Active Orders 24 hr Category Date Time Status EKG Documentation Completion [RC] STAT Care 07/02/20 13:51 Active CULTURE BLOOD [BC] Stat Lab 07/02/20 14:14 Received UA RFX GEOVANNA AND CULT IF INDIC [URIN] Urgent Lab 07/02/20 13:51 Ordered Labs: Laboratory Tests 07/02/20 07/02/20 07/02/20 Range/Units 14:14 14:14 14:14 WBC 6.7 (5.0-10.0) 10^3/uL RBC 3.92 L (4.2-5.4) 10^6/uL Hgb 12.0 (12.0-16.0) g/dL Hct 35.6 L (37.0-47.0) % MCV 90.8 D (80-100) fL MCH 30.6 (27.0-34.0) pg MCHC 33.7 (33.0-35.0) g/dL Plt Count 178 (150-450) 10^3/uL Neut % (Auto) 79.8 H (42.2-75.2) % Lymph % (Auto) 7.9 L (20.5-50.1) % Mcdowell % (Auto) 8.6 H (2-8) % Eos % (Auto) 3.3 H (1.0-3.0) % Baso % (Auto) 0.4 (0.0-1.0) % D-Dimer, Quantitative 555 H (0-400) ng/mL Sodium 131 L (136-145) mmol/L Potassium 2.8 L (3.5-5.1) mmol/L Chloride 94 L (98-107) mmol/L Carbon Dioxide 29 (21-32) mmol/L Anion Gap 10.8 (7-13) mEq/L BUN 79 H D (7-18) mg/dL Creatinine 2.72 H (0.55-1.02) mg/dL Est Cr Clr Drug Dosing 13.23 mL/min Estimated GFR (MDRD) 17 BUN/Creatinine Ratio 29.0 (No establ ref range) Glucose 116 H (74-99) mg/dL Lactic Acid (0.4-2.0) mmol/L Calcium 10.3 H (8.5-10.1) mg/dL Total Bilirubin 0.7 (0.2-1.0) mg/dL AST 13 L (15-37) U/L ALT 14 (14-59) U/L Alkaline Phosphatase 95 (46-116) U/L Troponin I 0.028 (0.000-0.056) ng/mL B-Natriuretic Peptide 1560 H (0-100) pg/ml Total Protein 6.5 (6.4-8.2) g/dL Albumin 3.1 L (3.4-5.0) g/dL Globulin 3.4 Albumin/Globulin Ratio 0.91 12/17/20 Range/Units 14:14 WBC (5.0-10.0) 10^3/uL RBC (4.2-5.4) 10^6/uL Hgb (12.0-16.0) g/dL Hct (37.0-47.0) % MCV (80-100) fL MCH (27.0-34.0) pg MCHC (33.0-35.0) g/dL Plt Count (150-450) 10^3/uL Neut % (Auto) (42.2-75.2) % Lymph % (Auto) (20.5-50.1) % Mcdowell % (Auto) (2-8) % Eos % (Auto) (1.0-3.0) % Baso % (Auto) (0.0-1.0) % D-Dimer, Quantitative (0-400) ng/mL Sodium (136-145) mmol/L Potassium (3.5-5.1) mmol/L Chloride (98-107) mmol/L Carbon Dioxide (21-32) mmol/L Anion Gap (7-13) mEq/L BUN (7-18) mg/dL Creatinine (0.55-1.02) mg/dL Est Cr Clr Drug Dosing mL/min Estimated GFR (MDRD) BUN/Creatinine Ratio (No establ ref range) Glucose (74-99) mg/dL Lactic Acid 1.0 (0.4-2.0) mmol/L Calcium (8.5-10.1) mg/dL Total Bilirubin (0.2-1.0) mg/dL AST (15-37) U/L ALT (14-59) U/L Alkaline Phosphatase (46-116) U/L Troponin I (0.000-0.056) ng/mL B-Natriuretic Peptide (0-100) pg/ml Total Protein (6.4-8.2) g/dL Albumin (3.4-5.0) g/dL Globulin Albumin/Globulin Ratio Meds: Medications Discontinued Medications Generic Name Dose Route Start Last Admin Trade Name Freq PRN Reason Stop Dose Admin Potassium Chloride 10 meq/ 100 mls @ 100 mls/hr 07/02/20 15:06 07/02/20 15:13 Premix IV 07/02/20 16:05 100 mls/hr ONETIME ONE Administration - Re-Assessments/Exams Free Text/Narrative Re-Assessment/Exam: 07/02/20 15:07 Received a call from Anayeli (Dr. Bhakta's nurse) and a copy of the recent visits. The patient did have an appointment at the Clinic 20 minutes after she arrived in the ED (1400) as a follow-up with Dr. Bhakta. The patient is scheduled to see Nephrology next week (07/07/20) and Occupational Therapy for lymphedema. The patient's medications have been changed several times, but the patient is not sure what medications she takes or when she takes which medications. With the patient's potassium at 2.8, the patient was given an IV dose of Potassium while in the ED. Departure - Departure Time of Disposition: 16:09 Disposition: Home, Self-Care 01 Condition: Fair Clinical Impression: Hypokalemia CHF (congestive heart failure) Qualifiers: Heart failure type: systolic Heart failure chronicity: chronic Qualified Code(s): I50.22 - Chronic systolic (congestive) heart failure Chronic renal failure Qualifiers: Chronic kidney disease stage: unspecified stage Qualified Code(s): N18.9 - Chronic kidney disease, unspecified Forms: ED Department Discharge Care Plan Goals: The patient was advised of the examination, lab and EKG results during the visit. The patient was given an IV dose of Potassium while in the ED. The patient was advised to continue to take her prescription medications as directed, to follow-up with her specialist as arranged (Nephrology and Occupational Therapy), and visit her primary care facility for continued evaluation and management. If the patient has any additional symptoms or concerns, the patient should either return to the emergency department or visit her primary care facility. Sepsis Event Note (ED) - Evaluation Sepsis Screening Result: No Definite Risk - Focused Exam Vital Signs: Vital Signs Temp Pulse Resp BP Pulse Ox 07/02/20 13:39 36.3 C 64 18 129/48 L 93 L - My Orders Last 24 Hours: My Active Orders 07/02/20 13:51 EKG Documentation Completion [RC] STAT UA RFX GEOVANNA AND CULT IF INDIC [URIN] Urgent 07/02/20 14:14 CULTURE BLOOD [BC] Stat - Assessment/Plan Last 24 Hours: My Active Orders 07/02/20 13:51 EKG Documentation Completion [RC] STAT UA RFX GEOVANNA AND CULT IF INDIC [URIN] Urgent 07/02/20 14:14 CULTURE BLOOD [BC] Stat
[2020-07-02 14:46] LABS: ANION GAP 10.8 mEq/L (7-13)
[2020-07-02] MEDS ORDERED: Potassium Chloride 10 MEQ in Premix Bag 1 BAG IV ONE (15:06)
== END 2020-07-02 16:50 | disposition home or self-care (01) ==
LOC: DL.ED 13:39
DX: I13.0 Hypertensive heart and chronic kidney disease with heart failure and stage 1 through stage 4 chronic kidney disease, or unspecified chronic kidney disease (principal); I50.22 Chronic systolic (congestive) heart failure; E11.22 Type 2 diabetes mellitus with diabetic chronic kidney disease; N18.4 Chronic kidney disease, stage 4 (severe); M19.90 Unspecified osteoarthritis, unspecified site; E87.6 Hypokalemia; Z88.8 Allergy status to other drugs, medicaments and biological substances; Z88.1 Allergy status to other antibiotic agents; Z88.5 Allergy status to narcotic agent; Z91.018 Allergy to other foods; Z79.82 Long term (current) use of aspirin; Z79.899 Other long term (current) drug therapy; Z79.4 Long term (current) use of insulin
CPT/HCPCS: 36415; 80053; 81001; 83605; 83880; 84484; 85025; 85379; 87040; 87086; 87088; 87186; 93005; 96365; 99284; 99284-25; J3480

== ENCOUNTER 2020-07-16 16:12 | Emergency (ER) | payer MEDICARE, MEDICAID ==
[2020-07-16 17:51] VITALS: BP 148/57; PULSE 59
--- NOTE | 2020-07-16 17:58 | EDM.PDOC ---
Scribed by Denita Man 07/16/20 [id number] for Raimundo Quiñonez MD ED HPI GENERAL MEDICAL PROBLEM - General Chief Complaint: Lower Extremity Injury/Pain Stated Complaint: LEFT LEG SWOLLEN PAINFUL Time Seen by Provider: 07/16/20 17:45 Source of Information: Reports: Patient, RN, RN Notes Reviewed History Limitations: Reports: No Limitations - History of Present Illness INITIAL COMMENTS - FREE TEXT/NARRATIVE: Patient presents to ED by POV with left lower extremity chronically draining with nonhealing wounds and lymphedema. Patient states that she was improving wi th Bactroban ointment and self dressing changes, but ran out of the ointment. Denies fever, chills or any other complaints. Onset: Gradual Duration: Getting Worse Location: Reports: Lower Extremity, Left Quality: Reports: Ache Severity: Moderate Improves with: Reports: None Worsens with: Reports: None Associated Symptoms: Reports: No Other Symptoms Left Lower Leg Pain Score (Numeric/FACES): 8 - Related Data Allergies Allergy/AdvReac Type Severity Reaction Status Date / Time lisinopril Allergy Other Verified 07/16/20 17:31 neomycin sulfate Allergy Swelling Verified 07/16/20 17:31 [From Neosporin ([id number])] Opioids - Morphine Analogues Allergy Rash Verified 07/16/20 17:31 polymyxin B Allergy Swelling Verified 07/16/20 17:31 [From Neosporin ([id number])] kiwi Allergy Swollen Uncoded 07/16/20 17:31 Eyes Home Meds: Home Meds Insulin Detemir [Levemir Flextouch] 40 units SQ BEDTIME 09/27/15 [History] glyBURIDE [Micronase] 5 mg PO BID 09/27/15 [History] Nitroglycerin [IJP: Nitroglycerin] 0.4 mg SL ASDIRECTED 12/17/16 [History] Aspirin [Halfprin] 81 mg PO DAILY 08/28/17 [History] Dextran 70/Hypromellose [Artificial Tears] 1 drop EYEBOTH BEDTIME PRN 08/28/17 [History] Albuterol Sulfate [Proair Hfa] 2 puff INH ASDIRECTED PRN 01/28/18 [History] amLODIPine Besylate [Amlodipine Besylate] 5 mg PO DAILY 01/28/18 [History] carvediloL [Coreg] 25 mg PO BIDMEALS 01/28/18 [History] Loratadine 10 mg PO ASDIRECTED PRN 07/30/19 [History] Meclizine [Antivert] 25 mg PO Q6H PRN 07/30/19 [History] Montelukast [Singulair] 10 mg PO DAILY 07/30/19 [History] Nitroglycerin 6.5 mg PO BID 07/30/19 [History] calcitrioL [Rocaltrol] 0.5 mcg PO DAILY 07/30/19 [History] metOLazone [Metolazone] 2.5 mg PO ASDIRECTED 07/30/19 [History] Past Medical History HEENT History: Reports: Impaired Vision Other HEENT History: wears glasses Cardiovascular History: Reports: Heart Failure, High Cholesterol, Hypertension Respiratory History: Reports: Asthma Gastrointestinal History: Reports: None Genitourinary History: Reports: Chronic Renal Insuffiency Other Genitourinary History: STAGE IV CKD 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 Musculoskeletal History: Reports: Arthritis Neurological History: Reports: None Psychiatric History: Reports: None Endocrine/Metabolic History: Reports: Diabetes, Type II Hematologic History: Reports: None Immunologic History: Reports: None Oncologic (Cancer) History: Reports: Breast Dermatologic History: Reports: None - Infectious Disease History Infectious Disease History: Reports: Mumps - Past Surgical History Head Surgeries/Procedures: Reports: None HEENT Surgical History: Reports: Cataract Surgery Cardiovascular Surgical History: 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 (See Below) Other Cardiovascular Surgeries/Procedures: angiogram Respiratory Surgical History: Reports: None GI Surgical History: Reports: Appendectomy, Cholecystectomy, Colonoscopy Female Surgical History: Reports: Cystoscopy, Hysterectomy Other Female Surgeries/Procedures: had a wedge l) BREAST Endocrine Surgical History: Reports: None Musculoskeletal Surgical History: Reports: None Oncologic Surgical History: Reports: Lumpectomy Other Oncologic Surgeries/Procedures: radiation and chemo Social & Family History - Family History Family Medical History: No Pertinent Family History - Caffeine Use Caffeine Use: Reports: Coffee Other Caffeine Use: 3 cups daily - Living Situation & Occupation Living situation: Reports: with Family Occupation: Retired Review of Systems - Review of Systems Review Of Systems: Comprehensive ROS is negative, except as noted in HPI. ED EXAM, GENERAL - Physical Exam Exam: See Below Exam Limited By: No Limitations General Appearance: Alert, No Apparent Distress Head: Atraumatic, Normocephalic Respiratory/Chest: No Respiratory Distress Peripheral Pulses: 0: Posterior Tibial (L), Posterior Tibial (R), 1+: Dorsalis Pedis (L), Dorsalis Pedis (R) Extremities: Normal Range of Motion, No Pedal Edema, Other (Left lower left with chronic venous statis changes, mild edema, and superficial chronic nonhealing wounds with some serous drainage, no increased warmth) Neurological: Alert, Oriented Psychiatric: Normal Mood Course - Vital Signs Last Recorded V/S: Last Vital Signs Temp 97.5 F 07/16/20 17:20 Pulse 59 L 07/16/20 17:20 Resp 18 07/16/20 17:20 BP 148/57 H 07/16/20 17:20 Pulse Ox 94 L 07/16/20 17:20 - Orders/Labs/Meds Meds: Medications Discontinued Medications Generic Name Dose Route Start Last Admin Trade Name Freq PRN Reason Stop Dose Admin Mupirocin 30 gm 07/16/20 17:50 Bactroban Oint TOP 07/16/20 17:51 ONETIME ONE Departure - Departure Time of Disposition: 17:54 Disposition: Home, Self-Care 01 Condition: Good Clinical Impression: Non-healing wound of left lower extremity, Lymphedema of left lower extremity - Discharge Information *PRESCRIPTION DRUG MONITORING PROGRAM REVIEWED*: Not Applicable *COPY OF PRESCRIPTION DRUG MONITORING REPORT IN PATIENT KARYN: Not Applicable Instructions: Wound Infection, [id number], Wound Care, Adult Forms: ED Department Discharge Additional Instructions: Rx: Bactroban (Mupirocin) Ointment 2% Continue dressing changes. Elevate your left leg as much as possible. Sepsis Event Note (ED) - Focused Exam Vital Signs: Vital Signs Temp Pulse Resp BP Pulse Ox 07/16/20 17:20 97.5 F 59 L 18 148/57 H 94 L I have read and agree with the documentation that has been completed regarding this visit. By signing this record, I attest that the documentation was completed in my physical presence and is an accurate record of the encounter.
[2020-07-16] MEDS: Mupirocin Oint 22 GM Tube TOP ONE (18:18)
== END 2020-07-16 18:24 | disposition home or self-care (01) ==
LOC: DL.ED 16:12
DX: S81.802A Unspecified open wound, left lower leg, initial encounter (principal); I89.0 Lymphedema, not elsewhere classified; E78.00 Pure hypercholesterolemia, unspecified; I50.9 Heart failure, unspecified; J45.909 Unspecified asthma, uncomplicated; I13.0 Hypertensive heart and chronic kidney disease with heart failure and stage 1 through stage 4 chronic kidney disease, or unspecified chronic kidney disease; N18.4 Chronic kidney disease, stage 4 (severe); M19.90 Unspecified osteoarthritis, unspecified site; E11.22 Type 2 diabetes mellitus with diabetic chronic kidney disease; Z79.899 Other long term (current) drug therapy; Z88.8 Allergy status to other drugs, medicaments and biological substances; Z88.1 Allergy status to other antibiotic agents; Z88.5 Allergy status to narcotic agent; Z91.018 Allergy to other foods; Z79.4 Long term (current) use of insulin; Z79.82 Long term (current) use of aspirin; X58.XXXA Exposure to other specified factors, initial encounter
CPT/HCPCS: 99283; A9270

== ENCOUNTER 2020-09-16 10:34 | Emergency (ER) | payer MEDICARE, MEDICAID | END 2020-09-16 13:49 | disposition left against medical advice (07) | LOC: DL.ED 10:34 | DX: Z53.21 Procedure and treatment not carried out due to patient leaving prior to being seen by health care provider (principal) ==

== ENCOUNTER 2020-09-22 23:53 | Emergency (ER) | payer MEDICARE, MEDICAID ==
[2020-09-23 00:08] VITALS: BP 137/70; PULSE 68
--- NOTE | 2020-09-23 00:24 | EDM.PDOC ---
ED HPI GENERAL MEDICAL PROBLEM - General Chief Complaint: General Stated Complaint: AMBULANCE Time Seen by Provider: 09/23/20 00:14 Source of Information: Reports: Patient, EMS, Old Records, RN, RN Notes Reviewed History Limitations: Reports: No Limitations - History of Present Illness INITIAL COMMENTS - FREE TEXT/NARRATIVE: Patient presents to the ED via EMS with complaints of progressive edema and weakness to bilateral lower extremities. The patient reports a history of CKD for which she receives hemodialysis on Monday, Monday, and Fridays. She reports she missed her dialysis treatment on Monday due to [facility]. She reports she has noted an increase in the swelling in her legs over the past 24 hours and is concerned as she has experienced difficulty standing up with her FWW, which is not normal for her. Additionally, she attest to general malaise, shaking chills, and shortness of breath. She denies recent illness, fever, chest pain, palpitations, nausea, vomiting, or diarrhea. She denies a history of a COVID infection and has not received a COVID vaccination. She denies tobacco, alcohol, or recreational drug use. 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: Reports: IV/IO Frontal Headache Pain Score (Numeric/FACES): 7 - Related Data Allergies Allergy/AdvReac Type Severity Reaction Status Date / Time lisinopril Allergy Other Verified 09/23/20 00:12 neomycin sulfate Allergy Swelling Verified 09/23/20 00:12 [From Neosporin ([id number])] Opioids - Morphine Analogues Allergy Rash Verified 09/23/20 00:12 polymyxin B Allergy Swelling Verified 09/23/20 00:12 [From Neosporin ([id number])] kiwi Allergy Swollen Uncoded 09/23/20 00:12 Eyes Home Meds: Home Meds Insulin Detemir [Levemir Flextouch] 40 units SQ BEDTIME 09/27/15 [History] glyBURIDE [Micronase] 5 mg PO BID 09/27/15 [History] Nitroglycerin [IJP: Nitroglycerin] 0.4 mg SL ASDIRECTED 12/17/16 [History] Aspirin [Halfprin] 81 mg PO DAILY 08/28/17 [History] Dextran 70/Hypromellose [Artificial Tears] 1 drop EYEBOTH BEDTIME PRN 08/28/17 [History] Albuterol Sulfate [Proair Hfa] 2 puff INH ASDIRECTED PRN 01/28/18 [History] amLODIPine Besylate [Amlodipine Besylate] 5 mg PO DAILY 01/28/18 [History] carvediloL [Coreg] 25 mg PO BIDMEALS 01/28/18 [History] Loratadine 10 mg PO ASDIRECTED PRN 07/30/19 [History] Meclizine [Antivert] 25 mg PO Q6H PRN 07/30/19 [History] Montelukast [Singulair] 10 mg PO DAILY 07/30/19 [History] Nitroglycerin 6.5 mg PO BID 07/30/19 [History] calcitrioL [Rocaltrol] 0.5 mcg PO DAILY 07/30/19 [History] metOLazone [Metolazone] 2.5 mg PO ASDIRECTED 07/30/19 [History] Past Medical History HEENT History: Reports: Impaired Vision Other HEENT History: wears glasses Cardiovascular History: Reports: Heart Failure, High Cholesterol, Hypertension Respiratory History: Reports: Asthma Gastrointestinal History: Reports: None Genitourinary History: Reports: Chronic Renal Insuffiency Other Genitourinary History: STAGE IV CKD 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 Musculoskeletal History: Reports: Arthritis Neurological History: Reports: None Psychiatric History: Reports: None Endocrine/Metabolic History: Reports: Diabetes, Type II Hematologic History: Reports: None Immunologic History: Reports: None Oncologic (Cancer) History: Reports: Breast Dermatologic History: Reports: None - Infectious Disease History Infectious Disease History: Reports: Mumps - Past Surgical History Head Surgeries/Procedures: Reports: None HEENT Surgical History: Reports: Cataract Surgery Cardiovascular Surgical History: 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 (See Below) Other Cardiovascular Surgeries/Procedures: angiogram Respiratory Surgical History: Reports: None GI Surgical History: Reports: Appendectomy, Cholecystectomy, Colonoscopy Female Surgical History: Reports: Cystoscopy, Hysterectomy Other Female Surgeries/Procedures: had a wedge l) BREAST Endocrine Surgical History: Reports: None Musculoskeletal Surgical History: Reports: None Oncologic Surgical History: Reports: Lumpectomy Other Oncologic Surgeries/Procedures: radiation and chemo Social & Family History - Family History Family Medical History: No Pertinent Family History - Tobacco Use Tobacco Use Status *Q: Never Tobacco User Second Hand Smoke Exposure: No - Caffeine Use Caffeine Use: Reports: Coffee Other Caffeine Use: 3 cups daily - Recreational Drug Use Recreational Drug Use: No - Living Situation & Occupation Living situation: Reports: with Family 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 ED EXAM, GENERAL - Physical Exam Exam: See Below Exam Limited By: No Limitations General Appearance: Alert, No Apparent Distress, Obese Eye Exam: Bilateral Eye: EOMI, Normal Inspection, PERRL (3mm) Throat/Mouth: Normal Inspection, Normal Voice, No Airway Compromise Head: Atraumatic, Normocephalic Neck: Normal Inspection, Supple, Non-Tender, Full Range of Motion Respiratory/Chest: Chest Non-Tender, Decreased Breath Sounds, Crackles, Accessory Muscle Use Cardiovascular: Normal Peripheral Pulses, Regular Rate, Rhythm, No Gallop, No JVD, No Rub, Systolic Murmur (4/6, greatest over pulmonic area; No radiation into carotids) Peripheral Pulses: 2+: Radial (L), Radial (R) GI/Abdominal: Normal Bowel Sounds, Soft, Non-Tender, No Distention, No Abnormal Bruit, No Mass, Pelvis Stable (Female) Exam: Deferred Rectal (Female) Exam: Deferred Back Exam: Normal Inspection, Full Range of Motion Extremities: Normal Capillary Refill, Pedal Edema (+3 pitting edema, bilaterally), Limited Range of Motion (To bilateral lower extremities) Neurological: Alert, Oriented, CN II-XII Intact, Normal Cognition, No Motor/Sensory Deficits, Abnormal Gait (Difficulty with rising from sitting position to ambulate) Psychiatric: Normal Affect, Normal Mood Skin Exam: Warm, Dry (Flaky), Erythema (Surrounding dialysis line), Wound/Incision (Dialysis line to right chest; Erythema and purulent drainage noted) #1 Interpretation EKG Date: 09/23/20 Time: 00:07 Rhythm: NSR Rate (Beats/Min): 67 [place]: LAD-Left [place] Deviation P-Wave: Present QRS: RBBB ST-T: Normal QT: Prolonged (QTC 548) OK/PQ Interval: 0.2 Comparison: No Change EKG Interpretation Comments: NSR; LAD; RBBB; q-wave in aVR, V1, and V3; No evidence of acute myocardial ischemia Course - Vital Signs Last Recorded V/S: Last Vital Signs Temp 96.5 F L 09/22/20 23:57 Pulse 68 09/22/20 23:57 Resp 19 09/22/20 23:57 BP 137/70 09/22/20 23:57 Pulse Ox 93 L 09/22/20 23:57 - Orders/Labs/Meds Labs: Laboratory Tests 09/23/20 09/23/20 Range/Units 00:12 00:12 WBC 6.8 (5.0-10.0) 10^3/uL RBC 3.60 L (4.2-5.4) 10^6/uL Hgb 10.6 L (12.0-16.0) g/dL Hct 33.2 L (37.0-47.0) % MCV 92.2 (80-100) fL MCH 29.4 (27.0-34.0) pg MCHC 31.9 L (33.0-35.0) g/dL Plt Count 212 (150-450) 10^3/uL Neut % (Auto) 81.7 H (42.2-75.2) % Lymph % (Auto) 8.1 L (20.5-50.1) % [place] % (Auto) 8.3 H (2-8) % Eos % (Auto) 1.6 (1.0-3.0) % Baso % (Auto) 0.3 (0.0-1.0) % Sodium 138 (136-145) mmol/L Potassium 3.6 (3.5-5.1) mmol/L Chloride 101 (98-107) mmol/L Carbon Dioxide 24 (21-32) mmol/L Anion Gap 16.6 H (7-13) mEq/L BUN 78 H (7-18) mg/dL Creatinine 3.75 H (0.55-1.02) mg/dL Est Cr Clr Drug Dosing 9.60 mL/min Estimated GFR (MDRD) 12 BUN/Creatinine Ratio 20.8 (No establ ref range) Glucose 142 H (74-99) mg/dL Calcium 7.8 L D (8.5-10.1) mg/dL Phosphorus 5.4 H (2.6-4.7) mg/dL Magnesium 2.5 H (1.8-2.4) mg/dL Total Bilirubin 0.7 (0.2-1.0) mg/dL AST 15 (15-37) U/L ALT 20 (14-59) U/L Alkaline Phosphatase 155 H (46-116) U/L Troponin I < 0.017 (0.000-0.056) ng/mL B-Natriuretic Peptide > 5000 H (0-100) pg/ml Total Protein 6.7 (6.4-8.2) g/dL Albumin 2.2 L (3.4-5.0) g/dL Globulin 4.5 Albumin/Globulin Ratio 0.49 - Radiology Interpretation Free Text/Narrative:: [facility] [place] [facility] Final Radiology Report Call: [phone] assistance Online chat: [email or web address] Name: KALA LOVE Age: 75Years F Date: 09/23/2020 SSN: -- : [id number] Study: CR CHEST 1V FRONTAL Requesting Physician: Gale Alves Images: 1 Addl Studies: Provided Clinical History: Shortness of breath; Chronic hemodialysis Contrast: Contrast Medium: Contrast Amount: Contrast Method: Page 1 of 2 PROCEDURE INFORMATION: Exam: XR Chest Exam date and time: 09/23/2020 1:27 AM Age: 75 years old Clinical indication: Shortness of breath; Additional info: Shortness of breath; Chronic hemodialysis TECHNIQUE: Imaging protocol: XR of the chest Views: 1 view. COMPARISON: CR Chest 1V Frontal 05/05/2020 6:13 AM FINDINGS: Tubes, catheters and devices: Right chest tunneled dialysis catheter. Lungs: Bilateral interstitial edema. Pleural spaces: Small bilateral pleural effusions left greater than right. Heart/Mediastinum: Mild cardiac enlargement. Bones/joints: Benign lesion in the right humeral head measuring approximately 19 mm with lucency and a sclerotic rim. This may represent a benign chondroid lesion. No change since 05/05/2020. IMPRESSION: 1. Interstitial edema or fluid overload. 2. Small bilateral pleural effusions. 3. Mild cardiomegaly. 4. Right chest tunneled dialysis catheter. Thank you for allowing us to participate in the care of your patient. Dictated and Authenticated by: Usman Boone MD 09/23/2020 2:17 AM Central Time ([place] & [place]) - Re-Assessments/Exams Free Text/Narrative Re-Assessment/Exam: 09/23/20 Fluid overload: BNP >5000 CXR remarkable for interstitial edema/fluid overload with mild cardiomegaly. Will treat with Lasix 80mg IVP x1. Patient requiring hemodialysis, but likely requires more than normal treatment as she is scheduled for today. Discussed case with Dr. Beavers at [facility] in [place] who agreed to accept patient for inpatient admission. Notified about appropriate potassium and need for "emergent" dialysis not likely. Acute on Chronic CKD: Creatinine elevated at 3.75, review of records show patient typically 2.2-2.5. BUN 78, GFR 12. Patient states she still produces urine occasionally. Normocytic hypochromic anemia: Hgb 10.8, review of records shows a Hgb of 11.5- 12. Likely due to chronic disease as well as acute fluid overload as patient denies any signs/symptoms of active bleed. Discussed finding of examination, imaging, and lab work with patient. Discussed likely need for dialysis treatments over the next few days, as well as IV diuretics which would require transfer. Patient verbalized understanding and agreement with the plan of care. Departure - Departure Time of Disposition: 03:18 Disposition: DC/Tfer to Acute Hospital 02 Condition: Good Clinical Impression: CKD (chronic kidney disease) requiring chronic dialysis, History of hemodialysis, Pleural effusion, Elevated brain natriuretic peptide (BNP) level Fluid overload Qualifiers: Hypervolemia type: unspecified Qualified Code(s): E87.70 - Fluid overload, unspecified CHF exacerbation Qualifiers: Heart failure type: unspecified Qualified Code(s): I50.9 - Heart failure, unspecified - Discharge Information Forms: ED Department Discharge, Interfacility Transfer [facility] Sepsis Event Note (ED) - Evaluation Sepsis Screening Result: No Definite Risk - Focused Exam Vital Signs: Vital Signs Temp Pulse Resp BP Pulse Ox 09/22/20 23:57 96.5 F L 68 19 137/70 93 L
[2020-09-23 00:39] LABS: ANION GAP 16.6 mEq/L (7-13); CHLORIDE,CL 101 mmol/L (98-107); SODIUM,NA 138 mmol/L (136-145)
--- NOTE | 2020-09-23 02:17 | CR ---
PROCEDURE INFORMATION: Exam: XR Chest Exam date and time: 09/23/2020 1:27 AM Age: 75 years old Clinical indication: Shortness of breath; Additional info: Shortness of breath; Chronic hemodialysis TECHNIQUE: Imaging protocol: XR of the chest Views: 1 view. COMPARISON: CR Chest 1V Frontal 05/05/2020 6:13 AM FINDINGS: Tubes, catheters and devices: Right chest tunneled dialysis catheter. Lungs: Bilateral interstitial edema. Pleural spaces: Small bilateral pleural effusions left greater than right. Heart/Mediastinum: Mild cardiac enlargement. Bones/joints: Benign lesion in the right humeral head measuring approximately 19 mm with lucency and a sclerotic rim. This may represent a benign chondroid lesion. No change since 05/05/2020. IMPRESSION: 1. Interstitial edema or fluid overload. 2. Small bilateral pleural effusions. 3. Mild cardiomegaly. 4. Right chest tunneled dialysis catheter.
[2020-09-23] MEDS ORDERED: Furosemide 40 MG/4 ML VIAL IVPUSH ONE (02:45)
== END 2020-09-23 03:25 ==
LOC: DL.ED 23:53
DX: I13.2 Hypertensive heart and chronic kidney disease with heart failure and with stage 5 chronic kidney disease, or end stage renal disease (principal); E11.22 Type 2 diabetes mellitus with diabetic chronic kidney disease; N18.6 End stage renal disease; I50.9 Heart failure, unspecified; D63.1 Anemia in chronic kidney disease; R79.1 Abnormal coagulation profile; E87.70 Fluid overload, unspecified; J45.909 Unspecified asthma, uncomplicated; M19.90 Unspecified osteoarthritis, unspecified site; I45.10 Unspecified right bundle-branch block; R74.8 Abnormal levels of other serum enzymes; Z99.2 Dependence on renal dialysis; Z88.8 Allergy status to other drugs, medicaments and biological substances; Z88.1 Allergy status to other antibiotic agents; Z88.5 Allergy status to narcotic agent; Z91.018 Allergy to other foods; Z79.4 Long term (current) use of insulin; Z79.82 Long term (current) use of aspirin; Z79.899 Other long term (current) drug therapy
CPT/HCPCS: 36415; 71045; 80053; 83735; 83880; 84100; 84484; 85025; 93005; 99285; J1940; 93010; 99284

== ENCOUNTER 2020-11-08 01:13 | Emergency (ER) | payer MEDICARE, MEDICAID ==
[2020-11-08 01:27] VITALS: BP 104/90; PULSE 73
[2020-11-08] MEDS ORDERED: Sodium Chloride 0.9% 10 ML Syringe FLUSH PRN (01:43)
--- NOTE | 2020-11-08 01:46 | EDM.PDOC ---
ED HPI GENERAL MEDICAL PROBLEM - General Chief Complaint: Upper Extremity Injury/Pain Stated Complaint: AMBULANCE Time Seen by Provider: 11/08/20 01:30 Source of Information: Reports: Patient History Limitations: Reports: No Limitations - History of Present Illness INITIAL COMMENTS - FREE TEXT/NARRATIVE: Patient comes emergency department today from home with complaints of left shoulder pain fever and quite a bit of generalized complaints as well. This patient for the past 2 days has noticed that she has had quite a bit of a headache primarily in the frontal aspect of her head. She has had malaise generalized weakness fatigue. She had a fever at dialysis yesterday of 102 which she was given some Tylenol for. Today she continues with the generalized complaints and generalized weakness. She has had a fever of 103 at home today. She has had no cough or congestion no shortness of breath or difficulty breathing. No loss of taste or smell. No abdominal pain nausea or vomiting. She does still make urine on a regular basis although she is a dialysis patient she denies any urinary frequency or dysuria. No black or tarry stools. No rash sores or lesions. She also complains of left shoulder pain from a fall that she had 2 days ago which she attributes to her generalized malaise and fatigue. She has pain in her left shoulder joint with any movement. She has tried some aspirin for her pain as well as her fever. She has not received her Covid vaccine. She does have a Vas-Cath in place for her dialysis. Patient has also complained of a bloody nose most of the day primarily from the right nares. Left Upper Posterior Shoulder Pain Score (Numeric/FACES): 10 - Related Data Allergies Allergy/AdvReac Type Severity Reaction Status Date / Time lisinopril Allergy Other Verified 11/08/20 01:29 neomycin sulfate Allergy Swelling Verified 11/08/20 01:29 [From Neosporin ([id number])] Opioids - Morphine Analogues Allergy Rash Verified 11/08/20 01:29 polymyxin B Allergy Swelling Verified 11/08/20 01:29 [From Neosporin ([id number])] kiwi Allergy Swollen Uncoded 11/08/20 01:29 Eyes Home Meds: Home Meds Insulin Detemir [Levemir Flextouch] 40 units SQ BEDTIME 09/27/15 [History] glyBURIDE [Micronase] 5 mg PO BID 09/27/15 [History] Nitroglycerin [IJP: Nitroglycerin] 0.4 mg SL ASDIRECTED 12/17/16 [History] Aspirin [Halfprin] 81 mg PO DAILY 08/28/17 [History] Dextran 70/Hypromellose [Artificial Tears] 1 drop EYEBOTH BEDTIME PRN 08/28/17 [History] Albuterol Sulfate [Proair Hfa] 2 puff INH ASDIRECTED PRN 01/28/18 [History] amLODIPine Besylate [Amlodipine Besylate] 5 mg PO DAILY 01/28/18 [History] carvediloL [Coreg] 25 mg PO BIDMEALS 01/28/18 [History] Loratadine 10 mg PO ASDIRECTED PRN 07/30/19 [History] Meclizine [Antivert] 25 mg PO Q6H PRN 07/30/19 [History] Montelukast [Singulair] 10 mg PO DAILY 07/30/19 [History] Nitroglycerin 6.5 mg PO BID 07/30/19 [History] calcitrioL [Rocaltrol] 0.5 mcg PO DAILY 07/30/19 [History] metOLazone [Metolazone] 2.5 mg PO ASDIRECTED 07/30/19 [History] Past Medical History HEENT History: Reports: Impaired Vision Other HEENT History: wears glasses Cardiovascular History: Reports: Heart Failure, High Cholesterol, Hypertension Respiratory History: Reports: Asthma Gastrointestinal History: Reports: None Genitourinary History: Reports: Chronic Renal Insuffiency, Other (See Below) Other Genitourinary History: STAGE IV CKD. hemodialysis Biweekly. [employer]ING [employer]ENT History: 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 [employer] AGENT History: hysterectomy Musculoskeletal History: Reports: Arthritis Neurological History: Reports: None Psychiatric History: Reports: None Endocrine/Metabolic History: Reports: Diabetes, Type II Hematologic History: Reports: None Immunologic History: Reports: None Oncologic (Cancer) History: Reports: Breast Dermatologic History: Reports: None - Infectious Disease History Infectious Disease History: Reports: Mumps - Past Surgical History Head Surgeries/Procedures: Reports: None HEENT Surgical History: Reports: Cataract Surgery Cardiovascular Surgical History: 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 (See Below) Other Cardiovascular Surgeries/Procedures: angiogram Respiratory Surgical History: Reports: None GI Surgical History: Reports: Appendectomy, Cholecystectomy, Colonoscopy Female Surgical History: Reports: Cystoscopy, Hysterectomy Other Female Surgeries/Procedures: had a wedge l) BREAST Endocrine Surgical History: Reports: None Musculoskeletal Surgical History: Reports: None Oncologic Surgical History: Reports: Lumpectomy Other Oncologic Surgeries/Procedures: radiation and chemo Social & Family History - Family History Family Medical History: No Pertinent Family History - Tobacco Use Tobacco Use Status *Q: Never Tobacco User Second Hand Smoke Exposure: No - Caffeine Use Caffeine Use: Reports: Coffee, Tea Other Caffeine Use: 3 cups daily - Recreational Drug Use Recreational Drug Use: No - Living Situation & Occupation Living situation: Reports: with Family Occupation: Retired Review of Systems - Review of Systems Review Of Systems: Comprehensive ROS is negative, except as noted in HPI. ED EXAM, GENERAL - Physical Exam Exam: See Below Exam Limited By: No Limitations General Appearance: Alert, WD/WN, No Apparent Distress Eye Exam: Bilateral Eye: EOMI, PERRL Ears: Normal External Exam, Normal TMs Nose: Normal Mucosa. No: Normal Inspection (She has a small amount of drainage coming from the right nares that is bloody in nature.) Throat/Mouth: Normal Inspection, Normal Lips, Normal Teeth, Normal Gums, Normal Oropharynx, Normal Voice, No Airway Compromise Head: Atraumatic, Normocephalic Neck: Normal Inspection, Supple, Non-Tender, Full Range of Motion Respiratory/Chest: No Respiratory Distress, No Accessory Muscle Use, Chest Non- Tender, Crackles (She has bibasilar crackles without any wheezing. No increased work of breathing.), Other (She does have a right anterior chest Vas-Cath in place with a dry intact dressing in the area surrounding it is unremarkable.) Cardiovascular: Normal Peripheral Pulses, Regular Rate, Rhythm Peripheral Pulses: 2+: Radial (L), Radial (R), Posterior Tibial (L), Posterior Tibial (R), Dorsalis Pedis (L), Dorsalis Pedis (R) GI/Abdominal: Normal Bowel Sounds, Soft, Non-Tender (Female) Exam: Deferred Rectal (Female) Exam: Deferred Extremities: Normal Range of Motion. No: Normal Inspection (She does have some chronic venous stasis and lichenification of the bilateral lower extremities. Small amount of edema bilaterally. She has some scabbing and open sores of the left anterior tib-fib region with some serous drainage that is not erythematous swollen hot tender. chronic wound) Neurological: Alert, Oriented, Normal Cognition, No Motor/Sensory Deficits Psychiatric: Normal Affect, Normal Mood Skin Exam: Warm, Dry, Intact, Normal Color Course - Vital Signs Last Recorded V/S: Last Vital Signs Temp 97.9 F 11/08/20 01:26 Pulse 73 11/08/20 01:26 Resp 17 11/08/20 01:26 BP 104/90 11/08/20 01:26 Pulse Ox 97 11/08/20 01:26 - Orders/Labs/Meds Orders: Active Orders 24 hr Category Date Time Status Peripheral IV Care [RC] . DIRECTED Care 11/08/20 01:45 Active Chest 2V [CR] Urgent Exams 11/08/20 01:44 Stop Req CULTURE BLOOD [BC] Stat Lab 11/08/20 01:55 Received CULTURE BLOOD [BC] Stat Lab 11/08/20 01:55 Received Heparin Sodium [Heparin Lock Flush 100 Units/ML] Med 11/08/20 01:56 Active 500 units FLUSH ASDIRECTED PRN Sodium Chloride 0.9% [Saline Flush] Med 11/08/20 01:43 Active 10 ml FLUSH ASDIRECTED PRN Blood Culture x2 Reflex Set [OM.PC] Stat Oth 11/08/20 01:45 Ordered Peripheral IV Insertion Adult [OM.PC] Stat Oth 11/08/20 01:43 Ordered Medication Orders Heparin Sodium (Porcine) (Heparin Sodium 100 Units/Ml 5 Ml Syringe) 500 units FLUSH ASDIRECTED PRN PRN Reason: lab draw Last Admin: 11/08/20 01:59 Dose: 160 units Documented by: [id number] Sodium Chloride (Sodium Chloride 0.9% 10 Ml Syringe) 10 ml FLUSH ASDIRECTED PRN PRN Reason: Keep Vein Open Labs: Laboratory Tests 11/08/20 11/08/20 11/08/20 Range/Units 01:46 01:55 01:55 WBC 8.5 (5.0-10.0) 10^3/uL RBC 3.16 L (4.2-5.4) 10^6/uL Hgb 9.8 L (12.0-16.0) g/dL Hct 31.4 L (37.0-47.0) % MCV 99.4 D (80-100) fL MCH 31.0 (27.0-34.0) pg MCHC 31.2 L (33.0-35.0) g/dL Plt Count 151 (150-450) 10^3/uL Neut % (Auto) 83.8 H (42.2-75.2) % Lymph % (Auto) 4.3 L (20.5-50.1) % Kings % (Auto) 11.7 H (2-8) % Eos % (Auto) 0.1 L (1.0-3.0) % Baso % (Auto) 0.1 (0.0-1.0) % PT (9.0-12.0) SEC INR (0.9-1.2) APTT (22.0-34.0) SEC Sodium 135 L (136-145) mmol/L Potassium 4.1 (3.5-5.1) mmol/L Chloride 99 (98-107) mmol/L Carbon Dioxide 26 (21-32) mmol/L Anion Gap 14.1 H (7-13) mEq/L BUN 40 H D (7-18) mg/dL Creatinine 3.47 H (0.55-1.02) mg/dL Est Cr Clr Drug Dosing 10.37 mL/min Estimated GFR (MDRD) 13 BUN/Creatinine Ratio 11.5 (No establ ref range) Glucose 213 H (70-99) mg/dL Lactic Acid (0.4-2.0) mmol/L Calcium 7.4 L (8.5-10.1) mg/dL Total Bilirubin 0.8 (0.2-1.0) mg/dL AST 18 (15-37) U/L ALT 27 (14-59) U/L Alkaline Phosphatase 240 H (46-116) U/L C-Reactive Protein 7.7 H (0.0-0.9) mg/dL Total Protein 6.4 (6.4-8.2) g/dL Albumin 2.0 L (3.4-5.0) g/dL Globulin 4.4 Albumin/Globulin Ratio 0.45 Urine Color (YELLOW) Urine Appearance (CLEAR) Urine pH (5.0-9.0) Ur Specific [place] (1.005-1.030) Urine Protein (NEGATIVE) Urine Glucose (UA) (NEGATIVE) Urine Ketones (NEGATIVE) Urine Occult Blood (NEGATIVE) Urine Nitrite (NEGATIVE) Urine Bilirubin (NEGATIVE) Urine Urobilinogen (0.2-1.0) mg/dL Ur Leukocyte Esterase (NEGATIVE) Urine RBC /HPF Urine WBC (0-5/HPF) /HPF Ur Epithelial Cells (NOT SEEN) /HPF Amorphous Sediment (NOT SEEN) /HPF Urine Bacteria (0-FEW/HPF) /HPF Urine Mucus (NOT SEEN) /LPF Influenza Type A RNA Negative (NEGATIVE) Influenza Type B RNA Negative (NEGATIVE) SARS-CoV-2 RNA ([place]) Negative (NEGATIVE) 11/08/20 11/08/20 11/08/20 Range/Units 01:55 01:55 04:12 WBC (5.0-10.0) 10^3/uL RBC (4.2-5.4) 10^6/uL Hgb (12.0-16.0) g/dL Hct (37.0-47.0) % MCV (80-100) fL MCH (27.0-34.0) pg MCHC (33.0-35.0) g/dL Plt Count (150-450) 10^3/uL Neut % (Auto) (42.2-75.2) % Lymph % (Auto) (20.5-50.1) % Kings % (Auto) (2-8) % Eos % (Auto) (1.0-3.0) % Baso % (Auto) (0.0-1.0) % PT 13.2 H (9.0-12.0) SEC INR 1.3 H (0.9-1.2) APTT 27.0 (22.0-34.0) SEC Sodium (136-145) mmol/L Potassium (3.5-5.1) mmol/L Chloride (98-107) mmol/L Carbon Dioxide (21-32) mmol/L Anion Gap (7-13) mEq/L BUN (7-18) mg/dL Creatinine (0.55-1.02) mg/dL Est Cr Clr Drug Dosing mL/min Estimated GFR (MDRD) BUN/Creatinine Ratio (No establ ref range) Glucose (70-99) mg/dL Lactic Acid 1.3 (0.4-2.0) mmol/L Calcium (8.5-10.1) mg/dL Total Bilirubin (0.2-1.0) mg/dL AST (15-37) U/L ALT (14-59) U/L Alkaline Phosphatase (46-116) U/L C-Reactive Protein (0.0-0.9) mg/dL Total Protein (6.4-8.2) g/dL Albumin (3.4-5.0) g/dL Globulin Albumin/Globulin Ratio Urine Color Yellow (YELLOW) Urine Appearance Slightly cloudy (CLEAR) Urine pH 5.0 (5.0-9.0) Ur Specific [place] 1.020 (1.005-1.030) Urine Protein 100 H (NEGATIVE) Urine Glucose (UA) Negative (NEGATIVE) Urine Ketones Negative (NEGATIVE) Urine Occult Blood Negative (NEGATIVE) Urine Nitrite Negative (NEGATIVE) Urine Bilirubin Negative (NEGATIVE) Urine Urobilinogen 0.2 (0.2-1.0) mg/dL Ur Leukocyte Esterase Negative (NEGATIVE) Urine RBC 0-5 /HPF Urine WBC 0-5 (0-5/HPF) /HPF Ur Epithelial Cells Occasional (NOT SEEN) /HPF Amorphous Sediment Moderate H (NOT SEEN) /HPF Urine Bacteria Few (0-FEW/HPF) /HPF Urine Mucus Not seen (NOT SEEN) /LPF Influenza Type A RNA (NEGATIVE) Influenza Type B RNA (NEGATIVE) SARS-CoV-2 RNA ([place]) (NEGATIVE) Meds: Medications Generic Name Dose Route Start Last Admin Trade Name Juan Jq PRN Reason Stop Dose Admin Heparin Sodium (Porcine) 500 units 11/08/20 01:56 11/08/20 01:59 Heparin Sodium 100 Units/Ml 5 Ml Syringe FLUSH 160 units ASDIRECTED PRN Administration lab draw Sodium Chloride 10 ml 11/08/20 01:43 Sodium Chloride 0.9% 10 Ml Syringe FLUSH ASDIRECTED PRN Keep Vein Open Discontinued Medications Generic Name Dose Route Start Last Admin Trade Name Freq PRN Reason Stop Dose Admin Doxycycline Monohydrate 100 mg 11/08/20 04:39 11/08/20 04:45 Doxycycline Monohydrate 100 Mg Cap PO 11/08/20 04:40 100 mg ONETIME ONE Administration Oxymetazoline HCl 2 ml 11/08/20 03:05 11/08/20 04:45 Oxymetazoline 0.05% Nasal [place] 30 Ml Bottle PRESLEY 11/08/20 03:06 1 spray ONETIME ONE Administration - Radiology Interpretation Free Text/Narrative:: Chest x-ray per radiology shows small left pleural effusion which has increased in size. Cardiomegaly. Nonspecific bibasilar opacities which could be secondary to atelectasis or pneumonia. X-ray of the left shoulder per radiology shows no acute fracture or dislocation. Left pleural effusion. Mild osteoporosis - Re-Assessments/Exams Free Text/Narrative Re-Assessment/Exam: 11/08/20 04:23 Laboratory evaluation with a normal white blood cell count at 8.5, hemoglobin 9.8 platelet count 151. Sodium 135, potassium 4.3, creatinine 3.47 with a BUN of 40. Glucose 213. Lactic acid 1.3. C-reactive protein is 7.7. Influenza Covid negative. 11/08/20 04:24 Patient was unable to void but she does make urine on a regular basis. She was cathed in the emergency department looking for the site of her fever and she had 450 mils returned. 11/08/20 04:35 Urinalysis is negative. Her CXR does have concerns for atelectasis vs pneumonia and with her comorbidities and fever we will treat her with Doxycyline for possible pneumonia. Xry of the shoulder is negative. Tylenol or pain and sling for comfort rice therapy. She was comfortable with this plan and her questions [id number]. 11/08/20 04:47 Oxymetazoline with resolution of the nose bleed. unable to identify the site of bleeding. Departure - Departure Time of Disposition: 04:37 Disposition: Home, Self-Care 01 Clinical Impression: Epistaxis Pneumonia Qualifiers: Pneumonia type: due to unspecified organism Laterality: bilateral Lung location: unspecified part of lung Qualified Code(s): J18.9 - Pneumonia, unspecified organism Shoulder pain, left Qualifiers: Chronicity: acute Qualified Code(s): M25.512 - Pain in left shoulder - Discharge Information Instructions: How To Use a Sling, [id number], Pain Medicine Instructions, [id number], Community-Acquired Pneumonia, Adult, [id number] Forms: ED Department Discharge Additional Instructions: Tylenol as needed for pain in the shoulder Sling for comfort. RICE therapy to the shoulder. Doxycycline 1 tablet twice daily for the next 7 days. First dose given to the patient and RX given to the patient. Return to the ED if new or worsening symptoms. Follow up with PCP in 1 week for recheck sooner if worse or not improving. For the bloody nose. You may use Oxymetazoline 2 spray in the right nares if bleeding reoccurs in the nose. Do not use this more than 2 days 2 times a day. Then saline nasal spray 4 times a day. Sepsis Event Note (ED) - Evaluation Sepsis Screening Result: No Definite Risk - Focused Exam Vital Signs: Vital Signs Temp Pulse Resp BP Pulse Ox 11/08/20 01:26 97.9 F 73 17 104/90 97 - My Orders Last 24 Hours: My Active Orders 11/08/20 01:43 Sodium Chloride 0.9% [Saline Flush] 10 ml FLUSH ASDIRECTED PRN Peripheral IV Insertion Adult [OM.PC] Stat 11/08/20 01:44 Chest 2V [CR] Urgent 11/08/20 01:45 Peripheral IV Care [RC] . DIRECTED Blood Culture x2 Reflex Set [OM.PC] Stat 11/08/20 01:55 CULTURE BLOOD [BC] Stat CULTURE BLOOD [BC] Stat 11/08/20 01:56 Heparin Sodium [Heparin Lock Flush 100 Units/ML] 500 units FLUSH ASDIRECTED PRN - Assessment/Plan Last 24 Hours: My Active Orders 11/08/20 01:43 Sodium Chloride 0.9% [Saline Flush] 10 ml FLUSH ASDIRECTED PRN Peripheral IV Insertion Adult [OM.PC] Stat 11/08/20 01:44 Chest 2V [CR] Urgent 11/08/20 01:45 Peripheral IV Care [RC] . DIRECTED Blood Culture x2 Reflex Set [OM.PC] Stat 11/08/20 01:55 CULTURE BLOOD [BC] Stat CULTURE BLOOD [BC] Stat 11/08/20 01:56 Heparin Sodium [Heparin Lock Flush 100 Units/ML] 500 units FLUSH ASDIRECTED PRN
[2020-11-08 02:25] LABS: ANION GAP 14.1 mEq/L (7-13)
--- NOTE | 2020-11-08 02:33 | CR ---
PROCEDURE INFORMATION: Exam: XR Chest Exam date and time: 11/08/2020 2:09 AM Age: 75 years old Clinical indication: Fever; Additional info: Fever unknown origin TECHNIQUE: Imaging protocol: XR of the chest. Views: 1 view. COMPARISON: CR Chest 1V Frontal 09/23/2020 1:27 AM FINDINGS: Tubes, catheters and devices: Stable right-sided dialysis catheter. Lungs: There are bibasilar opacities. Pleural spaces: Small left pleural effusion which has increased in size. Heart/Mediastinum: There is mild cardiomegaly. Bones/joints: Unremarkable. IMPRESSION: 1. Small left pleural effusion which has increased in size. 2. Mild cardiomegaly. 3. Nonspecific bibasilar opacities which could be secondary to atelectasis or pneumonia.
--- NOTE | 2020-11-08 02:34 | CR ---
PROCEDURE INFORMATION: Exam: XR Left Shoulder Exam date and time: 11/08/2020 2:12 AM Age: 75 years old Clinical indication: Other: Fall/pain; Additional info: Fall left shoulder pain TECHNIQUE: Imaging protocol: XR Left shoulder. Views: 2 or more views. COMPARISON: No relevant prior studies available. FINDINGS: Bones/joints: Mild joint line osteophyte formation. No acute fracture or dislocation. Pleural space: Left pleural effusion. Soft tissues: Normal. IMPRESSION: 1. No acute fracture or dislocation. 2. Left pleural effusion. 3. Mild osteoarthritis.
[2020-11-08 02:45] LABS: CORONAVIRUS COVID-19 NAA NEGATIVE (NEGATIVE)
[2020-11-08] MEDS ORDERED: Oxymetazoline 0.05% Nasal Spray 30 ML Bottle NAS ONE (03:05)
[2020-11-08] MEDS ORDERED: Iopamidol 612 MG/ML 100 ML Bottle IVPUSH ONE (04:29)
[2020-11-08] MEDS ORDERED: Doxycycline Monohydrate 100 MG Cap PO ONE (04:39)
== END 2020-11-08 04:54 | disposition home or self-care (01) ==
LOC: DL.ED 01:13
DX: J18.9 Pneumonia, unspecified organism (principal); M25.512 Pain in left shoulder; R04.0 Epistaxis; I13.0 Hypertensive heart and chronic kidney disease with heart failure and stage 1 through stage 4 chronic kidney disease, or unspecified chronic kidney disease; I50.9 Heart failure, unspecified; N18.4 Chronic kidney disease, stage 4 (severe); J45.909 Unspecified asthma, uncomplicated; M19.90 Unspecified osteoarthritis, unspecified site; E11.22 Type 2 diabetes mellitus with diabetic chronic kidney disease; Z20.822 Contact with and (suspected) exposure to COVID-19; Z88.8 Allergy status to other drugs, medicaments and biological substances; Z88.1 Allergy status to other antibiotic agents; Z88.5 Allergy status to narcotic agent; Z91.018 Allergy to other foods; Z79.4 Long term (current) use of insulin; Z79.899 Other long term (current) drug therapy; Z79.82 Long term (current) use of aspirin
CPT/HCPCS: 0240U; 36415; 71045; 73030; 80053; 81001; 83605; 85025; 85610; 85730; 86140; 87040; 87075; 99284; 99285; A9270; J1642; 87077

== ENCOUNTER 2020-11-10 11:53 | Emergency (ER) | payer MEDICARE, MEDICAID ==
[2020-11-10 12:27] VITALS: BP 109/50; PULSE 66
[2020-11-10] MEDS ORDERED: GI Cocktail Oral Solution 30 ML PO ONE (13:06)
--- NOTE | 2020-11-10 13:06 | EDM.PDOC ---
ED HPI GENERAL MEDICAL PROBLEM - General Chief Complaint: General Stated Complaint: IN BY [facility] Time Seen by Provider: 11/10/20 13:01 Source of Information: Reports: Patient, EMS, Old Records, RN, RN Notes Reviewed History Limitations: Reports: Respiratory Distress - History of Present Illness INITIAL COMMENTS - FREE TEXT/NARRATIVE: Patient presents to the ED via [facility] for complaints of shortness of breath. The patient reports a history of CHF and ESRD for which she receives hemodialysis MW. She states she has been experiencing a worsening shortness of breath and fatigue for the past four days. She was examined in this facility two days ago for similar symptoms in addition to a fall and was subsequently treated with Doxycycline 100mg BID. She states her SOB has not improved with this medication but also notes she did not attend her dialysis treatment on Monday as "...I felt too sick." She denies fever, shaking chills, sore throat, sinus pressure/drainage, palpitations, nausea, vomiting, or diarrhea. She does attest to chronic cough and chest tightness. She has not taken any additional medications for this problem. Left Shoulder Pain Score (Numeric/FACES): 5 - Related Data Allergies Allergy/AdvReac Type Severity Reaction Status Date / Time lisinopril Allergy Rash Verified 11/10/20 11:44 neomycin sulfate Allergy Redness Verified 11/10/20 11:44 [From Neosporin ([id number])] Opioids - Morphine Analogues Allergy Rash Verified 11/08/20 01:29 polymyxin B Allergy Redness Verified 11/10/20 11:44 [From Neosporin ([id number])] kiwi Allergy Swollen Uncoded 11/10/20 11:44 Eyes Home Meds: Home Meds Insulin Detemir [Levemir Flextouch] 10 units SQ BEDTIME 09/27/15 [History] glyBURIDE [Micronase] 5 mg PO BID 09/27/15 [History] Nitroglycerin [IJP: Nitroglycerin] 0.4 mg SL ASDIRECTED PRN 12/17/16 [History] Aspirin [Halfprin] 81 mg PO DAILY 08/28/17 [History] Albuterol Sulfate [Proair Hfa] 2 puff INH ASDIRECTED PRN 01/28/18 [History] Loratadine 10 mg PO DAILY PRN 07/30/19 [History] Meclizine [Antivert] 25 mg PO Q6H PRN 07/30/19 [History] Montelukast [Singulair] 10 mg PO DAILY 07/30/19 [History] calcitrioL [Rocaltrol] 0.5 mcg PO DAILY 07/30/19 [History] metOLazone [Metolazone] 5 mg PO DAILY 07/30/19 [History] Bumetanide [Bumex] 3 mg PO DAILY 11/10/20 [History] Calcium Acetate 1 tab PO DAILY 11/10/20 [History] Clopidogrel Bisulfate [Plavix] 75 mg PO DAILY 11/10/20 [History] Folic Acid 1 tab PO DAILY 11/10/20 [History] Losartan [Cozaar] 12.5 mg PO DAILY 11/10/20 [History] Omeprazole 20 mg PO DAILY 11/10/20 [History] atorvaSTATin [Lipitor] 40 mg PO DAILY 11/10/20 [History] carvediloL [Carvedilol] 6.25 mg PO BIDMEALS 11/10/20 [History] diphenhydrAMINE [Benadryl] 1 cap PO BEDTIME PRN 11/10/20 [History] Past Medical History HEENT History: Reports: Impaired Vision Other HEENT History: wears glasses Cardiovascular History: Reports: Heart Failure, High Cholesterol, Hypertension Respiratory History: Reports: Asthma, SOB Gastrointestinal History: Reports: None Genitourinary History: Reports: Chronic Renal Insuffiency, Other (See Below) Other Genitourinary History: STAGE IV CKD. hemodialysis Biweekly. 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 PASTRY FINISHER History: hysterectomy Musculoskeletal History: Reports: Arthritis Neurological History: Reports: None Psychiatric History: Reports: None Endocrine/Metabolic History: Reports: Diabetes, Type II Hematologic History: Reports: None Immunologic History: Reports: None Oncologic (Cancer) History: Reports: Breast Dermatologic History: Reports: None - Infectious Disease History Infectious Disease History: Reports: Mumps - Past Surgical History Head Surgeries/Procedures: Reports: None HEENT Surgical History: Reports: Cataract Surgery Cardiovascular Surgical History: 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 (See Below) Other Cardiovascular Surgeries/Procedures: angiogram Respiratory Surgical History: Reports: None GI Surgical History: Reports: Appendectomy, Cholecystectomy, Colonoscopy Female Surgical History: Reports: Cystoscopy, Hysterectomy Other Female Surgeries/Procedures: had a wedge l) BREAST Endocrine Surgical History: Reports: None Musculoskeletal Surgical History: Reports: None Oncologic Surgical History: Reports: Lumpectomy Other Oncologic Surgeries/Procedures: radiation and chemo Social & Family History - Family History Family Medical History: No Pertinent Family History - Tobacco Use Tobacco Use Status *Q: Never Tobacco User Second Hand Smoke Exposure: No - Caffeine Use Caffeine Use: Reports: Coffee, Tea Other Caffeine Use: 3 cups daily - Recreational Drug Use Recreational Drug Use: No - Living Situation & Occupation Living situation: Reports: with Family 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 ED EXAM, GENERAL - Physical Exam Exam: See Below Exam Limited By: Respiratory Distress General Appearance: Alert, Mild Distress (Shortness of breath) Eye Exam: Bilateral Eye: EOMI, Normal Inspection, PERRL (4mm) Throat/Mouth: Normal Oropharynx (Dry mucous membranes), Normal Voice, No Airway Compromise Head: Atraumatic, Normocephalic Neck: Normal Inspection, Supple, Non-Tender, Full Range of Motion Respiratory/Chest: Respiratory Distress, Crackles (To bilateral bases), Rales (To left lower base), Accessory Muscle Use, Other (Productive cough). No: Rhonchi, Wheezing Cardiovascular: Normal Peripheral Pulses, No Gallop, No JVD, No Rub, Systolic Murmur (5/6 holosystolic murmur). No: No Edema Peripheral Pulses: 2+: Radial (L), Radial (R) GI/Abdominal: Normal Bowel Sounds, Soft, Non-Tender, No Distention, No Mass, Pelvis Stable (Female) Exam: Deferred Rectal (Female) Exam: Deferred Back Exam: Decreased Range of Motion. No: CVA Tenderness (L), CVA Tenderness (R) Extremities: Pedal Edema (+2 pitting, bilaterally), Other (Dry, flaky skin) Neurological: Alert, Oriented, CN II-XII Intact, Normal Cognition, Normal Gait, No Motor/Sensory Deficits Psychiatric: Anxious Skin Exam: Warm, Dry, Other (Dry flaky skin to bilateral lower extremities). No: Ecchymosis, Erythema, Jaundice, Mottled, Pallor, Petechiae #1 Interpretation EKG Date: 11/10/20 Time: 13:07 Rhythm: NSR Rate (Beats/Min): 64 [place]: LAD-Left [place] Deviation P-Wave: Present QRS: RBBB ST-T: Normal QT: Prolonged (518) [place]/PQ Interval: 0.176 Comparison: No Change EKG Interpretation Comments: Sinus Rhythm; old T wave inversion in III, V1, and V2; q-wave in V1 and V3. No evidence of acute myocardia ischemia Course - Vital Signs Last Recorded V/S: Last Vital Signs Temp 97.1 F 11/10/20 12:18 Pulse 66 11/10/20 12:18 Resp 20 11/10/20 12:18 BP 109/50 L 11/10/20 12:18 Pulse Ox 99 11/10/20 12:18 - Orders/Labs/Meds Labs: Laboratory Tests 11/10/20 11/10/20 11/10/20 Range/Units 12:27 13:15 13:15 WBC 9.5 (5.0-10.0) 10^3/uL RBC 3.20 L (4.2-5.4) 10^6/uL Hgb 10.0 L (12.0-16.0) g/dL Hct 31.5 L (37.0-47.0) % MCV 98.4 (80-100) fL MCH 31.3 (27.0-34.0) pg MCHC 31.7 L (33.0-35.0) g/dL Plt Count 172 (150-450) 10^3/uL Neut % (Auto) 85.3 H (42.2-75.2) % Lymph % (Auto) 5.4 L (20.5-50.1) % [place] % (Auto) 9.0 H (2-8) % Eos % (Auto) 0.1 L (1.0-3.0) % Baso % (Auto) 0.2 (0.0-1.0) % PT 12.2 H (9.0-12.0) SEC INR 1.2 (0.9-1.2) APTT 29.4 (22.0-34.0) SEC Sodium (136-145) mmol/L Potassium (3.5-5.1) mmol/L Chloride (98-107) mmol/L Carbon Dioxide (21-32) mmol/L Anion Gap (7-13) mEq/L BUN (7-18) mg/dL Creatinine (0.55-1.02) mg/dL Est Cr Clr Drug Dosing mL/min Estimated GFR (MDRD) BUN/Creatinine Ratio (No establ ref range) Glucose (70-99) mg/dL Lactic Acid (0.4-2.0) mmol/L Calcium (8.5-10.1) mg/dL Total Bilirubin (0.2-1.0) mg/dL AST (15-37) U/L ALT (14-59) U/L Alkaline Phosphatase (46-116) U/L Troponin I (0.000-0.056) ng/mL C-Reactive Protein (0.0-0.9) mg/dL B-Natriuretic Peptide (0-100) pg/ml Total Protein (6.4-8.2) g/dL Albumin (3.4-5.0) g/dL Globulin Albumin/Globulin Ratio SARS-CoV-2 RNA (NORBERTO) Negative (NEGATIVE) 11/10/20 11/10/20 Range/Units 13:15 13:15 WBC (5.0-10.0) 10^3/uL RBC (4.2-5.4) 10^6/uL Hgb (12.0-16.0) g/dL Hct (37.0-47.0) % MCV (80-100) fL MCH (27.0-34.0) pg MCHC (33.0-35.0) g/dL Plt Count (150-450) 10^3/uL Neut % (Auto) (42.2-75.2) % Lymph % (Auto) (20.5-50.1) % [place] % (Auto) (2-8) % Eos % (Auto) (1.0-3.0) % Baso % (Auto) (0.0-1.0) % PT (9.0-12.0) SEC INR (0.9-1.2) APTT (22.0-34.0) SEC Sodium 133 L (136-145) mmol/L Potassium 4.4 (3.5-5.1) mmol/L Chloride 98 (98-107) mmol/L Carbon Dioxide 23 (21-32) mmol/L Anion Gap 16.4 H (7-13) mEq/L BUN 60 H (7-18) mg/dL Creatinine 4.65 H (0.55-1.02) mg/dL Est Cr Clr Drug Dosing 9.30 mL/min Estimated GFR (MDRD) 9 BUN/Creatinine Ratio 12.9 (No establ ref range) Glucose 61 L (70-99) mg/dL Lactic Acid 0.7 (0.4-2.0) mmol/L Calcium 7.8 L (8.5-10.1) mg/dL Total Bilirubin 1.0 (0.2-1.0) mg/dL AST 23 (15-37) U/L ALT 23 (14-59) U/L Alkaline Phosphatase 274 H (46-116) U/L Troponin I < 0.017 (0.000-0.056) ng/mL C-Reactive Protein 21.5 H (0.0-0.9) mg/dL B-Natriuretic Peptide > 5000 H (0-100) pg/ml Total Protein 6.5 (6.4-8.2) g/dL Albumin 2.0 L (3.4-5.0) g/dL Globulin 4.5 Albumin/Globulin Ratio 0.44 SARS-CoV-2 RNA (NORBERTO) (NEGATIVE) Meds: Medications Discontinued Medications Generic Name Dose Route Start Last Admin Trade Name Freq PRN Reason Stop Dose Admin Al Hydroxide/Mg Hydroxide 30 ml 11/10/20 13:06 Gi Cocktail Oral Solution 30 Ml PO 11/10/20 13:07 ONETIME ONE - Re-Assessments/Exams Free Text/Narrative Re-Assessment/Exam: 11/10/20 CXR remarkable for fluid overload; infiltrate still noted to left base. CMP and CBC slightly worsened from baseline given ESRD on hemodialysis. BNP >5000 Given physical exam, lab work, and imaging shortness of breath likely due to acute on chronic CHF with superimposed infiltrate. Patient requires hemodialysis which is not available at this facility. Findings of examination lab work and imaging reviewed with the patient as well as need for transfer to higher level of care. Case discussed with Dr. Brown, hospitalist at in [place], who kindly agreed to accept the patient for transfer. Patient notified of transfer to ; she verbalized understanding and agreement. Departure - Departure Time of Disposition: 15:36 Disposition: DC/Tfer to Acute Hospital 02 Clinical Impression: Acute on chronic diastolic CHF (congestive heart failure), End-stage renal disease on hemodialysis, Elevated brain natriuretic peptide (BNP) level, Normocytic hypochromic anemia Pneumonia Qualifiers: Pneumonia type: due to unspecified organism Laterality: bilateral Lung location: unspecified part of lung Qualified Code(s): J18.9 - Pneumonia, unspecified organism - Discharge Information Referrals: PCP,Unobtain [Primary Care Provider] - Forms: ED Department Discharge, Interfacility Transfer L[facility] Sepsis Event Note (ED) - Evaluation Sepsis Screening Result: No Definite Risk
[2020-11-10 13:51] LABS: PTT,PARTIAL THROMBOPLSTIN TIME 29.4 SEC (22.0-34.0)
[2020-11-10 14:04] LABS: ANION GAP 16.4 mEq/L (7-13); CHLORIDE,CL 98 mmol/L (98-107); SODIUM,NA 133 mmol/L (136-145)
--- NOTE | 2020-11-10 14:16 | CR ---
EXAMINATION: Chest 1V Frontal SEX: Female AGE: 75 years CLINICAL HISTORY: 75-year-old obese female dialysis patient complaining of Shortness of breath (SOB). Comparison CXR films 23 September and 08 November 2020. INTERPRETATION: Abnormal. 1. Chronic cardiomegaly. Increased dependent subpulmonic pleural fluid accumulation (effusions) bilaterally since recent exam 08 November 2020. (Pulmonary vascularity relatively less congested and no cephalization of flow) 2. Underlying lower lobe atelectasis and/or infiltrate on the left. 3. Possible Right mastectomy.? Large cluster of surgical sutures in the left axilla. 4. No new lung mass or other focal lobar consolidation. 5. Large bore right supraclavicular central venous line presumably for dialysis. CONCLUSION: Fluid overload.
== END 2020-11-10 15:49 ==
LOC: DL.ED 11:53
DX: I13.2 Hypertensive heart and chronic kidney disease with heart failure and with stage 5 chronic kidney disease, or end stage renal disease (principal); I50.9 Heart failure, unspecified; N18.6 End stage renal disease; R79.89 Other specified abnormal findings of blood chemistry; D50.9 Iron deficiency anemia, unspecified; Z99.2 Dependence on renal dialysis; J18.9 Pneumonia, unspecified organism; E78.00 Pure hypercholesterolemia, unspecified; J45.909 Unspecified asthma, uncomplicated; M19.90 Unspecified osteoarthritis, unspecified site; E11.22 Type 2 diabetes mellitus with diabetic chronic kidney disease; Z20.822 Contact with and (suspected) exposure to COVID-19; Z88.8 Allergy status to other drugs, medicaments and biological substances; Z88.1 Allergy status to other antibiotic agents; Z88.5 Allergy status to narcotic agent; Z91.018 Allergy to other foods; Z79.82 Long term (current) use of aspirin; Z79.4 Long term (current) use of insulin; Z79.02 Long term (current) use of antithrombotics/antiplatelets
CPT/HCPCS: 36415; 71045; 80053; 83605; 83880; 84484; 85025; 85610; 85730; 86140; 93005; 93010; 99284; 99285-25; U0002

== ENCOUNTER 2020-11-16 16:13 | Emergency (ER) | payer MEDICARE, MEDICAID ==
[2020-11-16] MEDS ORDERED: Sodium Chloride 0.9% 10 ML Syringe FLUSH PRN (16:45)
[2020-11-16 16:58] VITALS: BP 119/58; PULSE 80
[2020-11-16 17:22] LABS: ANION GAP 13.3 mEq/L (7-13); CHLORIDE,CL 96 mmol/L (98-107); SODIUM,NA 131 mmol/L (136-145)
--- NOTE | 2020-11-16 17:38 | CR ---
PROCEDURE INFORMATION: Exam: XR Left Shoulder Exam date and time: 11/16/2020 5:06 PM Age: 75 years old Clinical indication: Pain; Shoulder; Left; Additional info: Fall, left shoulder & right wrist injury TECHNIQUE: Imaging protocol: XR Left shoulder. Views: 2 or more views. COMPARISON: CR Shoulder Comp Lt 11/08/2020 2:12 AM FINDINGS: Bones/joints: Increased distance between the humeral head and the acromion suggests shoulder effusion.There are moderate degenerative changes of the acromioclavicular joint. There is no subluxation or dislocation. There is no evidence of acute fracture. Moderate hypertrophic change greater tuberosity. Lungs: linear atelectasis mid left lower lung, left pleural effusion suspect. Vasculature: There is moderate diffuse calcific atherosclerotic plaque. Soft tissues: There are clips in the left axilla. IMPRESSION: 1. Question shoulder effusion. 2. Left lung abnormalities as described, please refer to prior chest x-ray report.
--- NOTE | 2020-11-16 17:40 | CR ---
PROCEDURE INFORMATION: Exam: XR Right Wrist Exam date and time: 11/16/2020 5:27 PM Age: 75 years old Clinical indication: Pain; Wrist; Right; Additional info: Fall, left shoulder & right wrist injury TECHNIQUE: Imaging protocol: XR Right wrist. Views: 3 or more views. COMPARISON: No relevant prior studies available. FINDINGS: Bones/joints: mild degenerative change radiocarpal joint. Moderate degenerative change radioulnar joint. Some deformity of the base of the 1st metacarpal, this does not appear to reflect acute fracture, this configuration may reflect old trauma. Probable subcentimeter degenerative cyst proximal scaphoid. There is no evidence of acute fracture. There is no subluxation or dislocation. Soft tissues: There is no soft tissue abnormality seen. Vasculature: There is severe diffuse calcific atherosclerotic plaque. IMPRESSION: There is no evidence of acute fracture.
--- NOTE | 2020-11-16 18:14 | EDM.PDOC ---
Scribed by Denita Man 11/16/201811 for Raimundo Quiñonez MD ED HPI GENERAL MEDICAL PROBLEM - General Chief Complaint: General Stated Complaint: FALL, LEFT SHOULD RIGHT WRIST Time Seen by Provider: 11/16/20 16:43 Source of Information: Reports: Patient, RN, RN Notes Reviewed History Limitations: Reports: No Limitations - History of Present Illness INITIAL COMMENTS - FREE TEXT/NARRATIVE: Patient presents to ED by POV with complaint of left shoulder and right wrist pain. States she has been falling a lot at home. Multiple phone calls today were made between my and Dr. Chanell Hogan, and between Dr. Hogan, the patient's family, care givers and Home Health nurse, [facility] and the skilled nursing admission coordinators. Patient was recently discharged from [facility] and has fallen multiple times since arriving home. The family and care givers have been unable to pick the patient up off the floor without calling for assistance. Patient is to weak to stand or ambulate. Patient complains of pain to the left shoulder and right wrist. Arrangements were attempted to place the patient directly in the skilled nursing in [place] today, as she has already met her 72 hour stay, but she gets her dialysis in [place] and the skilled nursing had no way to accommodate her transportation to [place] for dialysis. Onset: Gradual Left Shoulder Pain Score (Numeric/FACES): 5 - Related Data Allergies Allergy/AdvReac Type Severity Reaction Status Date / Time lisinopril Allergy Rash Verified 11/10/20 11:44 neomycin sulfate Allergy Redness Verified 11/10/20 11:44 [From Neosporin ([id number])] Opioids - Morphine Analogues Allergy Rash Verified 11/08/20 01:29 polymyxin B Allergy Redness Verified 11/10/20 11:44 [From Neosporin ([id number])] kiwi Allergy Swollen Uncoded 11/10/20 11:44 Eyes Home Meds: Home Meds Insulin Detemir [Levemir Flextouch] 10 units SQ BEDTIME 09/27/15 [History] glyBURIDE [Micronase] 5 mg PO BID 09/27/15 [History] Nitroglycerin [IJP: Nitroglycerin] 0.4 mg SL ASDIRECTED PRN 12/17/16 [History] Aspirin [Halfprin] 81 mg PO DAILY 08/28/17 [History] Albuterol Sulfate [Proair Hfa] 2 puff INH ASDIRECTED PRN 01/28/18 [History] Loratadine 10 mg PO DAILY PRN 07/30/19 [History] Meclizine [Antivert] 25 mg PO Q6H PRN 07/30/19 [History] Montelukast [Singulair] 10 mg PO DAILY 07/30/19 [History] calcitrioL [Rocaltrol] 0.5 mcg PO DAILY 07/30/19 [History] metOLazone [Metolazone] 5 mg PO DAILY 07/30/19 [History] Bumetanide [Bumex] 3 mg PO DAILY 11/10/20 [History] Calcium Acetate 1 tab PO DAILY 11/10/20 [History] Clopidogrel Bisulfate [Plavix] 75 mg PO DAILY 11/10/20 [History] Folic Acid 1 tab PO DAILY 11/10/20 [History] Losartan [Cozaar] 12.5 mg PO DAILY 11/10/20 [History] Omeprazole 20 mg PO DAILY 11/10/20 [History] atorvaSTATin [Lipitor] 40 mg PO DAILY 11/10/20 [History] carvediloL [Carvedilol] 6.25 mg PO BIDMEALS 11/10/20 [History] diphenhydrAMINE [Benadryl] 1 cap PO BEDTIME PRN 11/10/20 [History] Past Medical History HEENT History: Reports: Impaired Vision Other HEENT History: wears glasses Cardiovascular History: Reports: Heart Failure, High Cholesterol, Hypertension Respiratory History: Reports: Asthma Gastrointestinal History: Reports: None Genitourinary History: Reports: Chronic Renal Insuffiency, Other (See Below) Other Genitourinary History: STAGE IV CKD. hemodialysis Biweekly. 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 Musculoskeletal History: Reports: Arthritis Neurological History: Reports: None Psychiatric History: Reports: None Endocrine/Metabolic History: Reports: Diabetes, Type II Hematologic History: Reports: None Immunologic History: Reports: None Oncologic (Cancer) History: Reports: Breast Dermatologic History: Reports: None - Infectious Disease History Infectious Disease History: Reports: Mumps - Past Surgical History Head Surgeries/Procedures: Reports: None HEENT Surgical History: Reports: Cataract Surgery Cardiovascular Surgical History: 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 (See Below) Other Cardiovascular Surgeries/Procedures: angiogram Respiratory Surgical History: Reports: None GI Surgical History: Reports: Appendectomy, Cholecystectomy, Colonoscopy Female Surgical History: Reports: Cystoscopy, Hysterectomy Other Female Surgeries/Procedures: had a wedge l) BREAST Endocrine Surgical History: Reports: None Musculoskeletal Surgical History: Reports: None Oncologic Surgical History: Reports: Lumpectomy Other Oncologic Surgeries/Procedures: radiation and chemo Social & Family History - Family History Family Medical History: No Pertinent Family History - Caffeine Use Caffeine Use: Reports: Coffee, Tea Other Caffeine Use: 3 cups daily - Living Situation & Occupation Living situation: Reports: with Family 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 ED EXAM, GENERAL - Physical Exam Exam: See Below Exam Limited By: No Limitations General Appearance: Alert, No Apparent Distress, Other (Chronically ill appearing) Eye Exam: Bilateral Eye: Normal Inspection Ears: Hearing Grossly Normal Nose: Normal Inspection, No Blood Throat/Mouth: Normal Lips, Normal Voice, No Airway Compromise Head: Atraumatic, Normocephalic Neck: Normal Inspection Respiratory/Chest: No Respiratory Distress, No Accessory Muscle Use, Decreased Breath Sounds, Crackles, Rales, Other (CV port Rt upper chest wall without signs of infection). No: Rhonchi, Wheezing Cardiovascular: Regular Rate, Rhythm GI/Abdominal: Normal Bowel Sounds, Soft, Non-Tender Extremities: Arm Pain (Left shoulder & Rt wrist tender to palpation, without visible bruising or deformity. ), Limited Range of Motion (Left shoulder and Rt wrist) Neurological: Alert, Oriented, No Motor/Sensory Deficits, Other (Generalized weakness) Psychiatric: Normal Mood Skin Exam: Warm, Dry, Intact, Normal Color, No Rash Course - Vital Signs Last Recorded V/S: Last Vital Signs Temp 97.7 F 11/16/20 16:55 Pulse 80 11/16/20 16:55 Resp 18 11/16/20 16:55 BP 119/58 L 11/16/20 16:55 Pulse Ox 95 11/16/20 16:55 - Orders/Labs/Meds Orders: Active Orders 24 hr Category Date Time Status Peripheral IV Care [RC] . DIRECTED Care 11/16/20 16:47 Active Sodium Chloride 0.9% [Saline Flush] Med 05/03/21 16:45 Active 10 ml FLUSH ASDIRECTED PRN Peripheral IV Insertion Adult [OM.PC] Stat Oth 11/16/20 16:46 Ordered Medication Orders Sodium Chloride (Sodium Chloride 0.9% 10 Ml Syringe) 10 ml FLUSH ASDIRECTED PRN PRN Reason: Keep Vein Open Labs: Laboratory Tests 11/16/20 11/16/20 11/16/20 Range/Units 16:58 16:58 16:58 WBC 11.4 H (5.0-10.0) 10^3/uL RBC 3.26 L (4.2-5.4) 10^6/uL Hgb 10.1 L (12.0-16.0) g/dL Hct 32.2 L (37.0-47.0) % MCV 98.8 (80-100) fL MCH 31.0 (27.0-34.0) pg MCHC 31.4 L (33.0-35.0) g/dL Plt Count 247 D (150-450) 10^3/uL Neut % (Auto) 85.5 H (42.2-75.2) % Lymph % (Auto) 5.1 L (20.5-50.1) % [place] % (Auto) 9.3 H (2-8) % Eos % (Auto) 0.0 L (1.0-3.0) % Baso % (Auto) 0.1 (0.0-1.0) % Sodium 131 L (136-145) mmol/L Potassium 4.3 (3.5-5.1) mmol/L Chloride 96 L (98-107) mmol/L Carbon Dioxide 26 (21-32) mmol/L Anion Gap 13.3 H (7-13) mEq/L BUN 38 H (7-18) mg/dL Creatinine 3.18 H D (0.55-1.02) mg/dL Est Cr Clr Drug Dosing 11.32 mL/min Estimated GFR (MDRD) 14 BUN/Creatinine Ratio 11.9 (No establ ref range) Glucose 167 H (70-99) mg/dL Lactic Acid 1.4 (0.4-2.0) mmol/L Calcium 7.9 L (8.5-10.1) mg/dL Total Bilirubin 0.9 (0.2-1.0) mg/dL AST 26 (15-37) U/L ALT 34 (14-59) U/L Alkaline Phosphatase 349 H (46-116) U/L B-Natriuretic Peptide > 5000 H (0-100) pg/ml Total Protein 6.2 L (6.4-8.2) g/dL Albumin 1.9 L (3.4-5.0) g/dL Globulin 4.3 Albumin/Globulin Ratio 0.44 Meds: Medications Generic Name Dose Route Start Last Admin Trade Name Freq PRN Reason Stop Dose Admin Sodium Chloride 10 ml 11/16/20 16:45 Sodium Chloride 0.9% 10 Ml Syringe FLUSH ASDIRECTED PRN Keep Vein Open - Radiology Interpretation Free Text/Narrative:: Right shoulder x-ray: Question shoulder effusion. Left lung abnormalities as described, please refer to prior chest x-ray report. See rad report. Right wrist x-ray: There is no evidence of acute fracture. See rad report. Departure - Departure Time of Disposition: 18:08 Disposition: DC/Tfer to [facility] 02 Condition: Fair Clinical Impression: Generalized weakness, Frequent falls, ESRD on hemodialysis, Adult failure to thrive syndrome - Discharge Information *PRESCRIPTION DRUG MONITORING PROGRAM REVIEWED*: Not Applicable *COPY OF PRESCRIPTION DRUG MONITORING REPORT IN PATIENT KARYN: Not Applicable Forms: ED Department Discharge, Interfacility Transfer EMTALA Sepsis Event Note (ED) - Focused Exam Vital Signs: Vital Signs Temp Pulse Resp BP Pulse Ox 11/16/20 16:55 97.7 F 80 18 119/58 L 95 - My Orders Last 24 Hours: My Active Orders 11/16/20 16:45 Sodium Chloride 0.9% [Saline Flush] 10 ml FLUSH ASDIRECTED PRN 11/16/20 16:46 Peripheral IV Insertion Adult [OM.PC] Stat 11/16/20 16:47 Peripheral IV Care [RC] . DIRECTED - Assessment/Plan Last 24 Hours: My Active Orders 11/16/20 16:45 Sodium Chloride 0.9% [Saline Flush] 10 ml FLUSH ASDIRECTED PRN 11/16/20 16:46 Peripheral IV Insertion Adult [OM.PC] Stat 11/16/20 16:47 Peripheral IV Care [RC] . DIRECTED I have read and agree with the documentation that has been completed regarding this visit. By signing this record, I attest that the documentation was completed in my physical presence and is an accurate record of the encounter.
== END 2020-11-16 18:33 ==
LOC: DL.ED 16:13
DX: I13.0 Hypertensive heart and chronic kidney disease with heart failure and stage 1 through stage 4 chronic kidney disease, or unspecified chronic kidney disease (principal); E11.22 Type 2 diabetes mellitus with diabetic chronic kidney disease; N18.4 Chronic kidney disease, stage 4 (severe); I50.9 Heart failure, unspecified; J45.909 Unspecified asthma, uncomplicated; E78.00 Pure hypercholesterolemia, unspecified; R62.7 Adult failure to thrive; Z68.34 Body mass index [BMI] 34.0-34.9, adult; Z88.8 Allergy status to other drugs, medicaments and biological substances; Z88.1 Allergy status to other antibiotic agents; Z91.018 Allergy to other foods; Z88.5 Allergy status to narcotic agent; Z79.82 Long term (current) use of aspirin; Z79.899 Other long term (current) drug therapy; R29.6 Repeated falls; Z99.2 Dependence on renal dialysis
CPT/HCPCS: 36415; 73030-LT; 73110-RT; 80053; 83605; 83880; 85025; 99284; 99285

== ENCOUNTER 2020-12-02 21:12 | Emergency (ER) | payer MEDICARE, MEDICAID ==
[2020-12-02 21:28] VITALS: BP 99/67; PULSE 66
[2020-12-02 22:30] LABS: ANION GAP 17.1 mEq/L (7-13); CHLORIDE,CL 99 mmol/L (98-107); SODIUM,NA 136 mmol/L (136-145)
--- NOTE | 2020-12-02 22:44 | CR ---
PROCEDURE INFORMATION: Exam: XR Chest Exam date and time: 12/02/2020 10:13 PM Age: 75 years old Clinical indication: Other: Chest pain TECHNIQUE: Imaging protocol: XR of the chest. Views: 1 view. COMPARISON: CR Chest 1V Frontal 11/10/2020 1:08 PM FINDINGS: Tubes, catheters and devices: Stable right-sided dialysis catheter. Lungs: Stable linear atelectasis or scar in the left lung base. Pleural spaces: Stable small bilateral pleural effusions. Heart/Mediastinum: There is mild cardiomegaly. Bones/joints: Unremarkable. IMPRESSION: 1. Stable small bilateral pleural effusions. 2. Mild cardiomegaly. 3. Stable linear atelectasis or scar in the left lung base.
--- NOTE | 2020-12-02 23:33 | EDM.PDOC ---
ED HPI GENERAL MEDICAL PROBLEM - General Chief Complaint: Chest Pain Stated Complaint: AMBULANCE Time Seen by Provider: 12/02/20 21:30 Source of Information: Reports: Patient, EMS History Limitations: Reports: No Limitations - History of Present Illness INITIAL COMMENTS - FREE TEXT/NARRATIVE: ED via [facility] with report of chest pain this afternoon, described as pressure, pain worse with movement of left arm, Fall last week to left shoulder, swelling left uper arm if doesn't wear sling. Arm swollen at present notes better than usual. increased SOB x 2 weeks. Dialysis patient, last on Monday not due til Monday. no fever, chills or cough. Notes taking more tylenol for shoulder pain, nausea last thomas, thinks from taking so much tylenol lately. Took Bumex prior to coming to ED, lives with son and grand daughters, son worsk nights, sleeps days. No known COVID exposure. Left Upper Anterior Chest Pain Score (Numeric/FACES): 5 - Related Data Allergies Allergy/AdvReac Type Severity Reaction Status Date / Time lisinopril Allergy Rash Verified 12/02/20 21:32 neomycin sulfate Allergy Redness Verified 12/02/20 21:32 [From Neosporin ([id number])] Opioids - Morphine Analogues Allergy Rash Verified 12/02/20 21:32 polymyxin B Allergy Redness Verified 12/02/20 21:32 [From Neosporin ([id number])] kiwi Allergy Swollen Uncoded 12/02/20 21:32 Eyes Home Meds: Home Meds Insulin Detemir [Levemir Flextouch] 10 units SQ BEDTIME 09/27/15 [History] glyBURIDE [Micronase] 5 mg PO BID 09/27/15 [History] Nitroglycerin [IJP: Nitroglycerin] 0.4 mg SL ASDIRECTED PRN 12/17/16 [History] Aspirin [Halfprin] 81 mg PO DAILY 08/28/17 [History] Albuterol Sulfate [Proair Hfa] 2 puff INH ASDIRECTED PRN 01/28/18 [History] Loratadine 10 mg PO DAILY PRN 07/30/19 [History] Meclizine [Antivert] 25 mg PO Q6H PRN 07/30/19 [History] Montelukast [Singulair] 10 mg PO DAILY 07/30/19 [History] calcitrioL [Rocaltrol] 0.5 mcg PO DAILY 07/30/19 [History] Bumetanide [Bumex] 3 mg PO DAILY 11/10/20 [History] Calcium Acetate 1 tab PO DAILY 11/10/20 [History] Clopidogrel Bisulfate [Plavix] 75 mg PO DAILY 11/10/20 [History] Folic Acid 1 tab PO DAILY 11/10/20 [History] Losartan [Cozaar] 12.5 mg PO DAILY 11/10/20 [History] Omeprazole 20 mg PO DAILY 11/10/20 [History] atorvaSTATin [Lipitor] 40 mg PO DAILY 11/10/20 [History] carvediloL [Carvedilol] 6.25 mg PO BIDMEALS 11/10/20 [History] diphenhydrAMINE [Benadryl] 1 cap PO BEDTIME PRN 11/10/20 [History] Past Medical History HEENT History: Reports: Impaired Vision Other HEENT History: wears glasses Cardiovascular History: Reports: Heart Failure, High Cholesterol, Hypertension Respiratory History: Reports: Asthma Gastrointestinal History: Reports: None Genitourinary History: Reports: Chronic Renal Insuffiency, Other (See Below) Other Genitourinary History: STAGE IV CKD. hemodialysis Biweekly. EXPERIMENTAL PHYSICIST History: 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 EXPERIMENTAL PHYSICIST History: hysterectomy Musculoskeletal History: Reports: Arthritis Neurological History: Reports: None Psychiatric History: Reports: None Endocrine/Metabolic History: Reports: Diabetes, Type II Hematologic History: Reports: None Immunologic History: Reports: None Oncologic (Cancer) History: Reports: Breast Dermatologic History: Reports: None - Infectious Disease History Infectious Disease History: Reports: Mumps - Past Surgical History Head Surgeries/Procedures: Reports: None HEENT Surgical History: Reports: Cataract Surgery Cardiovascular Surgical History: 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 (See Below) Other Cardiovascular Surgeries/Procedures: angiogram Respiratory Surgical History: Reports: None GI Surgical History: Reports: Appendectomy, Cholecystectomy, Colonoscopy Female Surgical History: Reports: Cystoscopy, Hysterectomy Other Female Surgeries/Procedures: had a wedge l) BREAST Endocrine Surgical History: Reports: None Musculoskeletal Surgical History: Reports: None Oncologic Surgical History: Reports: Lumpectomy Other Oncologic Surgeries/Procedures: radiation and chemo Social & Family History - Family History Family Medical History: No Pertinent Family History - Tobacco Use Tobacco Use Status *Q: Never Tobacco User - Caffeine Use Caffeine Use: Reports: Coffee Other Caffeine Use: 3 cups daily - Recreational Drug Use Recreational Drug Use: No - Living Situation & Occupation Living situation: Reports: with Family Occupation: Retired ED ROS GENERAL - Review of Systems Review Of Systems: See Below Constitutional: Denies: Fever, Chills HEENT: Reports: Glasses Respiratory: Reports: Shortness of Breath. Denies: Cough Cardiovascular: Reports: Chest Pain, Dyspnea on Exertion, Edema (2+). Denies: Lightheadedness, Orthopnea, Palpitations GI/Abdominal: Reports: No Symptoms Skin: Reports: Wound (Diabetic ulcer left anterior burks) Neurological: 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 Psychiatric: Reports: No Symptoms ED EXAM, GENERAL - Physical Exam Exam: See Below Exam Limited By: No Limitations General Appearance: Alert, Anxious, Thin Ears: Normal External Exam, Hearing Grossly Normal Nose: Normal Inspection Throat/Mouth: Normal Inspection Head: Atraumatic, Normocephalic Respiratory/Chest: No Respiratory Distress, Decreased Breath Sounds (mid to base). No: Rales, Rhonchi, Wheezing Cardiovascular: Normal Peripheral Pulses, Regular Rate, Rhythm, Other (chest pain reproducible with movement of left arm and shhoulder). No: No JVD, No Murmur GI/Abdominal: Normal Bowel Sounds Extremities: Other (tender left shoulder, faint bruising , ) Neurological: Alert, Oriented, Other (mild forgetfulness, phone numbers or med times) Psychiatric: Anxious (mild) Skin Exam: Normal Color, Other (Wound left burks, dressing intact, partial removal wound appears clean scant drainage. ) #1 Interpretation EKG Date: 12/02/20 Time: 21:25 Rhythm: NSR Rate (Beats/Min): 65 P-Wave: Present QRS: RBBB ST-T: Normal Comparison: Change From Previous EKG Course - Vital Signs Text/Narrative:: Ruthann Keane accepting patient. Tx via [facility]. Last Recorded V/S: Last Vital Signs Temp 96.5 F L 12/02/20 21:26 Pulse 66 12/02/20 21:26 Resp 19 12/02/20 21:26 BP 99/67 12/02/20 21:26 Pulse Ox 94 L 12/02/20 21:26 - Orders/Labs/Meds Labs: Laboratory Tests 05/12/02/20 12/02/20 Range/Units 21:53 22:00 22:00 WBC 13.4 H (5.0-10.0) 10^3/uL RBC 3.39 L (4.2-5.4) 10^6/uL Hgb 10.8 L (12.0-16.0) g/dL Hct 34.2 L (37.0-47.0) % MCV 100.9 H (80-100) fL MCH 31.9 (27.0-34.0) pg MCHC 31.6 L (33.0-35.0) g/dL Plt Count 250 (150-450) 10^3/uL Neut % (Auto) 93.5 H (42.2-75.2) % Lymph % (Auto) 3.7 L (20.5-50.1) % Colbert % (Auto) 2.7 (2-8) % Eos % (Auto) 0.0 L (1.0-3.0) % Baso % (Auto) 0.1 (0.0-1.0) % PT (9.0-12.0) SEC INR (0.9-1.2) D-Dimer, Quantitative (0-400) ng/mL Sodium 136 (136-145) mmol/L Potassium 4.1 (3.5-5.1) mmol/L Chloride 99 (98-107) mmol/L Carbon Dioxide 24 (21-32) mmol/L Anion Gap 17.1 H (7-13) mEq/L BUN 32 H (7-18) mg/dL Creatinine 3.44 H (0.55-1.02) mg/dL Est Cr Clr Drug Dosing 10.46 mL/min Estimated GFR (MDRD) 13 BUN/Creatinine Ratio 9.3 (No establ ref range) Glucose 194 H (70-99) mg/dL Calcium 7.5 L (8.5-10.1) mg/dL Total Bilirubin 0.8 (0.2-1.0) mg/dL AST 21 (15-37) U/L ALT 24 (14-59) U/L Alkaline Phosphatase 321 H (46-116) U/L Troponin I 0.018 (0.000-0.056) ng/mL B-Natriuretic Peptide > 5000 H (0-100) pg/ml Total Protein 5.7 L (6.4-8.2) g/dL Albumin 1.5 L (3.4-5.0) g/dL Globulin 4.2 Albumin/Globulin Ratio 0.36 SARS-CoV-2 RNA ([facility]) Negative (NEGATIVE) 12/02/20 12/02/20 Range/Units 22:00 22:00 WBC (5.0-10.0) 10^3/uL RBC (4.2-5.4) 10^6/uL Hgb (12.0-16.0) g/dL Hct (37.0-47.0) % MCV (80-100) fL MCH (27.0-34.0) pg MCHC (33.0-35.0) g/dL Plt Count (150-450) 10^3/uL Neut % (Auto) (42.2-75.2) % Lymph % (Auto) (20.5-50.1) % Colbert % (Auto) (2-8) % Eos % (Auto) (1.0-3.0) % Baso % (Auto) (0.0-1.0) % PT 16.0 H D (9.0-12.0) SEC INR 1.6 H (0.9-1.2) D-Dimer, Quantitative 2220 H (0-400) ng/mL Sodium (136-145) mmol/L Potassium (3.5-5.1) mmol/L Chloride (98-107) mmol/L Carbon Dioxide (21-32) mmol/L Anion Gap (7-13) mEq/L BUN (7-18) mg/dL Creatinine (0.55-1.02) mg/dL Est Cr Clr Drug Dosing mL/min Estimated GFR (MDRD) BUN/Creatinine Ratio (No establ ref range) Glucose (70-99) mg/dL Calcium (8.5-10.1) mg/dL Total Bilirubin (0.2-1.0) mg/dL AST (15-37) U/L ALT (14-59) U/L Alkaline Phosphatase (46-116) U/L Troponin I (0.000-0.056) ng/mL B-Natriuretic Peptide (0-100) pg/ml Total Protein (6.4-8.2) g/dL Albumin (3.4-5.0) g/dL Globulin Albumin/Globulin Ratio SARS-CoV-2 RNA ([facility]O) (NEGATIVE) Departure - Departure Time of Disposition: 23:55 Disposition: DC/Tfer to [facility] 02 Reason for Transfer *Q: Other Condition: Fair Clinical Impression: Elevated brain natriuretic peptide (BNP) level, Nonspecific chest pain, Left anterior shoulder pain, Non-healing wound of left lower extremity, End-stage renal disease on hemodialysis Chronic CHF (congestive heart failure) Qualifiers: Heart failure type: unspecified Qualified Code(s): I50.9 - Heart failure, unspecified Forms: ED Department Discharge Sepsis Event Note (ED) - Evaluation Sepsis Screening Result: No Definite Risk - Focused Exam Vital Signs: Vital Signs Temp Pulse Resp BP Pulse Ox 12/02/20 21:26 96.5 F L 66 19 99/67 94 L
== END 2020-12-02 23:56 ==
LOC: DL.ED 21:12
DX: R07.9 Chest pain, unspecified (principal); M25.512 Pain in left shoulder; S81.802A Unspecified open wound, left lower leg, initial encounter; R79.89 Other specified abnormal findings of blood chemistry; I13.2 Hypertensive heart and chronic kidney disease with heart failure and with stage 5 chronic kidney disease, or end stage renal disease; I50.9 Heart failure, unspecified; N18.6 End stage renal disease; E78.00 Pure hypercholesterolemia, unspecified; J45.909 Unspecified asthma, uncomplicated; N18.4 Chronic kidney disease, stage 4 (severe); M19.90 Unspecified osteoarthritis, unspecified site; E11.22 Type 2 diabetes mellitus with diabetic chronic kidney disease; Z99.2 Dependence on renal dialysis; Z20.822 Contact with and (suspected) exposure to COVID-19; Z88.8 Allergy status to other drugs, medicaments and biological substances; Z88.1 Allergy status to other antibiotic agents; Z88.5 Allergy status to narcotic agent; Z91.018 Allergy to other foods; Z79.82 Long term (current) use of aspirin; Z79.4 Long term (current) use of insulin; Z79.02 Long term (current) use of antithrombotics/antiplatelets; X58.XXXA Exposure to other specified factors, initial encounter
CPT/HCPCS: 36415; 71045; 80053; 83880; 84484; 85025; 85379; 85610; 93005; 93010; 99284; 99285-25; U0002